=== PATIENT | female | born 1975 | race American Indian/Alaskan Native ===

== ENCOUNTER 2016-11-05 16:58 | Observation (INO) | payer MEDICAID, OTHER ==
[2016-11-05] MEDS ORDERED: Aspirin 325 mg EC Tablets PO STA (18:03)
--- NOTE | 2016-11-05 18:14 | ED PDOC ---
Arrival/HPI - General Historian: Patient - General Chief Complaint: Lower Extremity Problem/Injury Time Seen by Provider: 11/05/16 17:10 - History of Present Illness Narrative History of Present Illness (Text): 11/05/16 18:09 41 yo F with pmh of neuropathy to lower extremities and etoh abuse, presents complaining of pins and needle sensation as well as pain described as "electric shock" sensation to bilateral lower legs started below the knees down to both feet. Patient states that she has had similar symptoms prior, mostly to the feet. Patient states she used to be on gabapentin last year, however is currently on no medications to control her symptoms as she has not been able to see a pmd due to her insurance. Denies any fever, chills, trauma, injury, swelling, recent travel. Patient also reports 3-4 day h/o intermittent L sided chest pain described as pressure "someone is sitting on my chest," associated with dyspnea. 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 Otherwise: (-) radiation, (-) diaphoresis, (-) SOB, (+) pleuritic component, (- ) ripping or tearing quality, (-) positional component, (-) exertional component , (-) dizziness, (-) syncope, (-) nausea, (-) vomiting, (-) calf swelling, (-) neuro deficits. Of note, patient states that her last stress test was in [address] Nix and was normal. PMD none (Mingo BORJAS,Lianne Ramirez) Past Medical History - Provider Review Nursing Documentation Reviewed: Yes - Infectious Disease Hx of Infectious Diseases: None - Tetanus Immunization Tetanus Immunization: Unknown - Past Medical History Past Medical History: Non-Contributing - Cardiac Hx Cardiac Disorders: Yes Hx Hypertension: Yes - Pulmonary Hx Respiratory Disorders: No - Neurological Hx Neurological Disorder: No Other/Comment: Neuropathy in legs - HEENT Hx HEENT Disorder: No - Renal Hx Renal Disorder: No - Endocrine/Metabolic Hx Endocrine Disorders: Yes Hx Diabetes Mellitus Type 2: Yes - Hematological/Oncological Hx Blood Disorders: No - Integumentary Hx Dermatological Disorder: Yes Other/Comment: hidradenitis supprativum - Musculoskeletal/Rheumatological Hx Musculoskeletal Disorders: No Hx Falls: No - Gastrointestinal Hx Gastrointestinal Disorders: Yes Hx Gall Bladder Disease: Yes (cholecystectomy) Hx Gastritis: Yes Hx Gastroesophageal Reflux: Yes Hx Pancreatitis: Yes - Genitourinary/Gynecological Hx Genitourinary Disorders: No - Psychiatric Hx Psychophysiologic Disorder: Yes Hx Depression: Yes Hx Substance Use: No Other/Comment: alcohol abuse - Surgical History Hx Cholecystectomy: Yes Hx Gastric Bypass Surgery: Yes Other/Comment: left breast lumpectomy, abscess removal - Anesthesia Hx Anesthesia: Yes Hx Anesthesia Reactions: No Hx Malignant Hyperthermia: No - Suicidal Assessment Feels Threatened In Home Enviroment: No Family/Social History - Physician Review Nursing Documentation Reviewed: Yes Family/Social History: Other (neuropathy) Smoking Status: Never Smoked Hx Alcohol Use: Yes (quit 1 yr ago) Hx Substance Use: No Hx Substance Use Treatment: No Allergies/Home Meds Allergies/Adverse Reactions: Allergies alprazolam [From Xanax] Allergy (Verified 11/05/16 17:22) SWELLING ceftaroline fosamil acetate [From Teflaro] Allergy (Verified 11/05/16 17:22) SWELLING shellfish derived Allergy (Verified 11/05/16 17:22) ANAPHYLAXIS Home Medications: Home Meds Medication Instructions Recorded Confirmed No Known Home Med 11/05/16 11/05/16 Review of Systems - Review of Systems Constitutional: Normal. absent: Fatigue, Weight Change, Fevers Respiratory: Normal, Other (dyspnea). absent: SOB, Cough, Sputum Cardiovascular: Normal, Chest Pain. absent: Palpitations, Edema Musculoskeletal: Normal, Other. absent: Arthralgias, Back Pain, Neck Pain Skin: Normal. absent: Rash, Pruritis, Skin Lesions Neurological: Normal, Other (neuropathy to both legs). absent: Headache, Dizziness, Focal Weakness Physical Exam Finger Stick Blood Glucose: 159 - Physical Exam Narrative Physical Exam (Text): 11/05/16 18:15 GENERAL APPEARANCE: Patient is awake, alert, oriented x 3, in mild painful distress. SKIN: Warm, dry; (-) cyanosis. EYES: (-) conjunctival pallor. ENMT: Mucous membranes moist. NECK: (-) tenderness, (-) stiffness, (-) lymphadenopathy, (-) JVD. CHEST AND RESPIRATORY: (-) rash, (+) L upper chest wall tenderness. Lungs: (- ) rales, (-) rhonchi, (-) wheezes, (-) rub; breath sounds equal bilaterally. HEART AND CARDIOVASCULAR: (-) irregularity; (-) murmur, (-) gallop, (-) rub. ABDOMEN AND GI: Soft; (-) distention, (-) tenderness, (-) palpable pulsatile mass. EXTREMITIES: (-) deformity; (-) edema, (-) calf tenderness. (+) distal pulses. NEURO AND PSYCH: Mental status as above. Cranial nerves grossly intact; strength symmetric, sensation to b/l LE from the shins to the feet are decreased R>L. (Mingo BORJAS,Lianne Ramirez) Vital Signs Temp Pulse Resp BP Pulse Ox 11/05/16 18:58 98.5 F 110 H 18 106/73 99 11/05/16 17:15 98.5 F 120 H 18 106/73 98 Medical Decision Making - Lab Interpretations I have reviewed the lab results: Yes (trop (-), bnp (-), d-dimer (+)) ED Course and Treatment: 11/05/16 18:15 41 yo F with pmh of neuropathy to lower extremities, complaining of pins and needle sensation & pain bilateral lower legs from below the knees down to both feet. Patient also reports 3-4 day h/o intermittent L sided chest pain described as pressure "someone is sitting on my chest," associated with dyspnea. Previous medical records reviewed: 06/2011 - patient had a normal exercise stress, normal gated wall motions of L ventricle, LVEF 54%. 07/2011 - patient had a cardiac cath : L main nl, LAD no stenosis, RCA is nl, EF 60-70%, performed by Dr. Nix Plan: -- Labs - inlcuding trop / d-dimer -- IV -- Urinalysis -- EKG -- CXR -- ASA po / ultram po -- Reassess and disposition EKG : Sinus tach at 120 bpm, (-) acute ST changes, as read by CRISTIANA CXR: NAD, as read by CRISTIANA On reevaluation, the patient is sitting in bed comfortably, still in mild painful distress, she reports of continued pain to the b/l LE due to her neuropathy. Denies any CP, dyspnea or SOB at this time. Lab results show trop is negative, bnp is normal, elevated d-dimer. CTA chest to r/o PE ordered. Patient notified plan for CTA chest, which she agrees to. Patient remains tachycardic. CTA chest shows no PE. Patient notified of CTA results. Based on history, exam and diagnostic results plan will be for inpatient tele observation for chest pain r/o ACS. Patient notified of plan for inpatient tele observation, which she agrees to. Patient reports improvement of her b/l leg pain. Patient has no additional complaints at this time. Case d/w medical review coordinator Dr. Pedro and with Dr. Bhatti. Dr. Bhatti agree with plan for inpatient tele obs under the hospitalist. Admission orders placed. (Mingo BORJAS,Lianne Ramirez) - Lab Interpretations Lab Results: 11/05/16 18:40 11/05/16 18:40 Lab Results 11/05/16 18:40: Sodium 134, Potassium 4.0, Chloride 95 L, Carbon Dioxide 27, Anion Gap 16, BUN 13, Creatinine 0.7, Est GFR ( Amer) > 60, Est GFR (Non- Af Amer) > 60, Random Glucose 183 H, Calcium 9.0, Total Bilirubin 0.8, AST 166 H , ALT 45, Alkaline Phosphatase 122, Lactate Dehydrogenase 532, Total Creatine Kinase 84, Troponin I < 0.01, NT-Pro-B Natriuret Pep 31.9, Total Protein 9.3 H, Albumin 4.0, Globulin 5.3, Albumin/Globulin Ratio 0.8 L 11/05/16 18:40: WBC 11.8 H D, RBC 3.64, Hgb 11.8 L, Hct 35.7 L, MCV 98.1, MCH 32.4, MCHC 33.1, RDW 19.5 H, Plt Count 109 L, Gran % 83.5 H, Lymph % (Auto) 11.9 L, [place] % (Auto) 3.5, Eos % (Auto) 1.0 L, Baso % (Auto) 0.1, Gran # 9.86 H , Lymph # 1.4, [place] # 0.4, Eos # 0.1, Baso # 0.01 11/05/16 18:40: PT 10.9, INR 1.01, APTT 28.6, D-Dimer, Quantitative 0.65 H 11/05/16 18:00: Urine Color Light brown, Urine Appearance Sl cloudy, Urine pH 5.5, Ur Specific [place] 1.025, Urine Protein 30 H, Urine Glucose (UA) Negative , Urine Ketones 15 H, Urine Blood Large H, Urine Nitrate Negative, Urine Bilirubin Small H, Urine Urobilinogen 1.0 H, Ur Leukocyte Esterase Small H, Urine RBC 25 - 30, Urine WBC 5 - 10, Ur Epithelial Cells Many, Amorphous Sediment Small, Urine Bacteria Many, Urine Other Uyeast 11/05/16 17:31: POC Glucose (mg/dL) 159 H - RAD Interpretation Narrative RAD Interpretations (Text): 11/05/16 22:59 CTA chest : FINDINGS: No pulmonary emboli in the main pulmonary arteries. No emboli identified distally however patient motion results in heterogeneity of several of the very distal lower lobe branches limiting evaluation. No aortic dissection or aneurysm. No pleural or pericardial effussions. No pulmonary consolidation. Cholecystectomy clips are present. IMPRESSION: No acute findings. Dictated and Authenticated by: Yulissa Kwan MD 11/05/2016 10:48 PM Eastern Time ([place] & [place]) (Mingo BORJAS,Lianne Ramirez) Radiology Orders: 11/05/16 18:05 CHEST PORTABLE [RAD] Stat 11/05/16 20:11 ANGIO CHEST PE PROTOCOL [CT] Stat - Medication Orders Current Medication Orders: Aspirin (Ecotrin) 81 mg PO STAT STA Stop: 11/06/16 00:13 Atorvastatin Calcium (Lipitor) 80 mg PO DIN JAGRUTI Sodium Chloride (Sodium Chloride 0.9%) 1,000 mls @ 100 mls/hr IV .Q10H JAGRUTI Insulin Human Lispro (Humalog Low) 0 units SC ACHS JAGRUTI PRN Reason: Protocol Morphine Sulfate (Morphine) 2 mg IVP Q4H PRN PRN Reason: Pain, moderate (4-7) Discontinued Medications Aspirin (Ecotrin) 325 mg PO STAT STA Stop: 11/05/16 18:04 Last Admin: 11/05/16 18:35 Dose: 325 mg Iohexol (Omnipaque 350 150 Ml) Confirm Administered Dose 150 ml .ROUTE .STK-MED ONE Stop: 11/05/16 21:31 Morphine Sulfate (Morphine) 4 mg IVP STAT STA Stop: 11/05/16 20:36 Last Admin: 11/05/16 20:48 Dose: 4 mg Ondansetron HCl (Zofran Inj) 4 mg IVP STAT STA Stop: 11/05/16 20:36 Last Admin: 11/05/16 20:49 Dose: 4 mg Tramadol HCl (Ultram) 50 mg PO STAT STA Stop: 11/05/16 18:07 Last Admin: 11/05/16 18:35 Dose: 50 mg - PA / 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 Disposition/Present on Arrival - Present on Arrival Any Indicators Present on Arrival: No History of DVT/PE: No History of Uncontrolled Diabetes: No Urinary Catheter: No History of Decub. Ulcer: No History Surgical Site Infection Following: None - Disposition Have Diagnosis and Disposition been Completed?: Yes Disposition Time: 10:00 Patient Plan: Observation (tele) - Disposition Diagnosis: Neuropathy, Chest pain Disposition: HOSPITALIZED Condition: STABLE
[2016-11-05 18:38] LABS: PH,URINE 5.5 (4.7-8.0); URINE BILIRUBIN SMALL (NEGATIVE); URINE BLOOD LARGE (NEGATIVE); URINE GLUCOSE (UA) NEGATIVE (NEGATIVE); URINE KETONE 15 mg/dL (NEGATIVE); URINE LEUKOCYTE ESTERASE SMALL Leu/uL (NEGATIVE); URINE PROTEIN 30 mg/dL (<30 mg/dL)
[2016-11-05 18:40] LABS: URINE APPEARANCE SL CLOUDY (CLEAR); URINE COLOR LIGHT BROWN (YELLOW)
[2016-11-05 18:47] LABS: URINE AMORPHOUS SEDIMENT SMALL; URINE BACTERIA MANY (NEG); URINE EPITHELIAL CELLS MANY /hpf (0-5); URINE RBC 25 - 30 /hpf (0-2)
[2016-11-05 18:59] VITALS: O2SAT 99
[2016-11-05 19:16] LABS: ALB/GLOB RATIO 0.8 (1.1-1.8); ALKALINE PHOSPHATASE 122 U/L (38-126); ALT/SGPT 45 U/L (7-56); AST/SGOT 166 U/L (14-36); BILIRUBIN,TOTAL 0.8 mg/dL (0.2-1.3); BLOOD UREA NITROGEN 13 mg/dL (7-21); CARBON DIOXIDE 27 mmol/L (21-33); CHLORIDE 95 mmol/L (98-107); GFR AFRICAN-AMERICAN > 60; GLUCOSE,RANDOM 183 mg/dL (70-110); SODIUM 134 mmol/L (132-148); TOTAL PROTEIN 9.3 g/dL (5.8-8.3)
[2016-11-05 19:19] LABS: BASO # 0.01 K/mm3 (0.0-2.0); BASO % 0.1 % (0.0-3.0); EOS # 0.1 (0.0-0.7); GRAN # 9.86 (1.4-6.5); GRAN % 83.5 % (50.0-68.0); HEMATOCRIT 35.7 % (36.0-48.0); LYMPH # 1.4 (1.2-3.4); LYMPH % 11.9 % (22.0-35.0); MEAN CELL VOLUME 98.1 fl (80.0-105.0); MEAN CORPUSCULAR HEMOGLOBIN 32.4 pg (25.0-35.0); MEAN CORPUSCULAR HGB CONC 33.1 g/dl (31.0-37.0); MONO # 0.4 (0.1-0.6); MONO % 3.5 % (1.0-6.0); PLATELET COUNT 109 10^3/uL (120.0-450.0); RED CELL DISTRIBUTION WIDTH 19.5 % (11.5-14.5); WHITE BLOOD COUNT 11.8 10^3/ul (4.5-11.0)
[2016-11-05 19:28] LABS: INR 1.01 (0.93-1.08); PARTIAL THROMBOPLASTIN TIME 28.6 Seconds (23.7-30.8)
[2016-11-05 19:35] LABS: D DIMER 0.65 mg/L FEU (0-0.50)
[2016-11-05 19:40] LABS: TROPONIN I < 0.01 ng/mL
[2016-11-05] MEDS ORDERED: Morphine 4 mg/ml ISec IVP STA (20:35)
--- NOTE | 2016-11-05 22:48 | CT ---
EXAM: CT Angiography Chest With Intravenous Contrast EXAM DATE/TIME: 11/05/2016 8:11 PM CLINICAL HISTORY: 41 years old, female; Pain; Chest pain and other: Chest pain, R/O pe TECHNIQUE: Axial computed tomographic angiography images of the chest with intravenous contrast using pulmonary embolism protocol. All CT scans at this facility use one or more dose reduction techniques, viz.: automated exposure control; ma/kV adjustment per patient size (including targeted exams where dose is matched to indication; i.e. head); or iterative reconstruction technique. MIP reconstructed images were created and reviewed. Coronal and sagittal reformatted images were created and reviewed. CONTRAST: 150 mL of [id number] administered intravenously. COMPARISON: CT - ANGIO CHEST PE PROTOCOL 03/20/2015 2:41:32 AM FINDINGS: No pulmonary emboli in the main pulmonary arteries. No emboli identified distally however patient motion results in heterogeneity of several of the very distal lower lobe branches limiting evaluation. No aortic dissection or aneurysm. No pleural or pericardial effussions. No pulmonary consolidation. Cholecystectomy clips are present. The liver and spleen are prominent similar to prior. IMPRESSION: No acute findings.
--- NOTE | 2016-11-06 00:22 | CP.PCM.HP ---
<Deon Pedro - Last Filed: 11/06/16 01:02> History of Present Illness - History of Present Illness History of Present Illness: 41 yo female with PMH of DM, peripheral neuropathy presents to the ED because she states she feels needles in both of her legs starting from her foot and going up to her knees. She states that she has had that feeling for a while but today it was the worse it has been so she came in. She also states that along with the leg pain she has discomfort in her chest which she describes as a pressure like something is sitting on her chest. She says it is non radiating and that the chest discomfort started yesterday. Along with the chest discomfort she states it was difficult for her to catch her breath. She complains of a headache, light headedness, shortness of breath, and numbness and tingling in her legs. She denies any fever chills, N/V, diaphoresis PMH: Peripheral Neuropathy, DM, PSH: gastric bypass, cholecysectomy, left brest lumpectomy, removal of rectal cysts Family Hx: mother- neuropathy and HTN, father- DM, Kidney disease Social: denies alcohol, tobacco or drug use Medications: does not take any medications, used to take metformin Allergies: shellfish, xanax (gets a rash) FDLMP: October 20 Present on Admission - Present on Admission Any Indicators Present on Admission: No Review of Systems - Constitutional Constitutional: absent: Chills, Excessive Sweating, Night Sweats, Weakness - EENT Eyes: absent: Change in Vision Ears: absent: Decreased Hearing - Cardiovascular Cardiovascular: Chest Pain, Dyspnea, Dyspnea on Exertion, Rapid Heart Rate. absent: Diaphoresis, Pain Radiating to Arm/Neck/Jaw - Respiratory Respiratory: absent: Dyspnea - Gastrointestinal Gastrointestinal: absent: Hematemesis, Nausea, Vomiting - Reproductive: Female Reproductive:Female: As Per HPI - Menstruation Menstruation: As Per HPI - Musculoskeletal Musculoskeletal: Tingling - Neurological Neurological: Headaches. absent: Abnormal Hearing, Loss of Vision Past Patient History - Infectious Disease Hx of Infectious Diseases: None - Tetanus Immunizations Tetanus Immunization: Unknown - Past Medical History & Family History Past Medical History?: Yes - Past Social History Smoking Status: Never Smoked - CARDIAC Hx Cardiac Disorders: Yes Hx Hypertension: Yes - PULMONARY Hx Respiratory Disorders: No - NEUROLOGICAL Hx Neurological Disorder: No Other/Comment: Neuropathy in legs - HEENT Hx HEENT Problems: No - RENAL Hx Chronic Kidney Disease: No - ENDOCRINE/METABOLIC Hx Endocrine Disorders: Yes Hx Diabetes Mellitus Type 2: Yes - HEMATOLOGICAL/ONCOLOGICAL Hx Blood Disorders: No - INTEGUMENTARY Hx Dermatological Problems: Yes Other/Comment: hidradenitis supprativum - MUSCULOSKELETAL/RHEUMATOLOGICAL Hx Musculoskeletal Disorders: No Hx Falls: No - GASTROINTESTINAL Hx Gastrointestinal Disorders: Yes Hx Gall Bladder Disease: Yes (cholecystectomy) Hx Gastritis: Yes Hx Gastroesophageal Reflux: Yes Hx Pancreatitis: Yes - GENITOURINARY/GYNECOLOGICAL Hx Genitourinary Disorders: No - PSYCHIATRIC Hx Psychophysiologic Disorder: Yes Hx Depression: Yes Hx Substance Use: No Other/Comment: alcohol abuse - SURGICAL HISTORY Hx Cholecystectomy: Yes Hx Gastric Bypass Surgery: Yes Other/Comment: left breast lumpectomy, abscess removal - ANESTHESIA Hx Anesthesia: Yes Hx Anesthesia Reactions: No Hx Malignant Hyperthermia: No Meds Allergies/Adverse Reactions: Allergies Allergy/AdvReac Type Severity Reaction Status Date / Time alprazolam [From Xanax] Allergy SWELLING Verified 11/05/16 17:22 ceftaroline fosamil acetate Allergy SWELLING Verified 11/05/16 17:22 [From Teflaro] shellfish derived Allergy ANAPHYLAXIS Verified 11/05/16 17:22 Physical Exam - Constitutional Appears: No Acute Distress - Head Exam Head Exam: ATRAUMATIC, NORMAL INSPECTION, NORMOCEPHALIC - Eye Exam Eye Exam: EOMI, Normal appearance, PERRL - Neck Exam Neck exam: Positive for: Normal Inspection - Respiratory Exam Respiratory Exam: Clear to Auscultation Bilateral, NORMAL BREATHING PATTERN - Cardiovascular Exam Cardiovascular Exam: REGULAR RHYTHM, +S1, +S2 - GI/Abdominal Exam GI & Abdominal Exam: Normal Bowel Sounds - Extremities Exam Extremities exam: Positive for: pedal pulses present Additional comments: healed ulcers/wounds on hall feet on the plantar surfaces - Neurological Exam Neurological exam: Alert, CN II-XII Intact, Oriented x3 Results - Vital Signs Recent Vital Signs: Last Vital Signs Temp 98.5 F 11/05/16 18:58 Pulse 110 H 11/05/16 18:58 Resp 18 11/05/16 18:58 BP 106/73 11/05/16 18:58 Pulse Ox 99 11/05/16 18:58 - Labs Result Diagrams: 11/05/16 18:40 11/05/16 18:40 Assessment & Plan - Assessment and Plan (Free Text) Assessment: 41 year old female with PMH of neuropathy and DM complaining of tingling in her legs and chest discomfort. She is being treated to rule out ACS. Plan: 1. Chest Discomfort Rule out ACS -EKG was performed, normal sinus but tachycardia, will get serial EKG -patient on oxygen via nasala canula -Initial troponins negative, will get serial troponins -Cardiology consulted Dr. Cheung -started on 81mg Aspirin -Morphine 2mg IV Q4H PRN started -Lipid panel ordered -Started on Heart Healthy Diet -NS @100 started -Atorvastatin 80mg started -patient admitted to telemetry -D-dimer came back elevated 0.65 -CT Angio was performed and obtained 2. Peripheral Neuropathy - likely secondary to uncontrolled DM -Hemoglobin A1C ordered <Danish Bhatti MD - Last Filed: 11/06/16 08:45> Results - Vital Signs Recent Vital Signs: Last Vital Signs Temp 98.5 F 11/06/16 05:35 Pulse 106 H 11/06/16 05:35 Resp 22 11/06/16 05:35 BP 123/69 11/06/16 05:35 Pulse Ox 99 11/06/16 05:35 - Labs Result Diagrams: 11/05/16 18:40 11/05/16 18:40 Labs: Laboratory Results - last 24 hr 11/06/16 11/06/16 11/06/16 01:50 01:50 07:33 POC Glucose (mg/dL) 184 H Troponin I < 0.01 Triglycerides 144 Cholesterol 178 LDL Cholesterol Direct 115 HDL Cholesterol 46 TSH 3rd Generation 4.79 H Attending/Attestation - Attestation I have personally seen and examined this patient.: Yes I have fully participated in the care of the patient.: Yes I have reviewed all pertinent clinical information: Yes Notes (Text): -I agree with the above H&P completed by the resident physician, with the following additions and/or changes: The patient is a 41 year old, obese woman with a history of NIDDM (diet controlled), HTN (diet controlled) and peripheral neuropathy, who presents with acute onset of substernal chest pain. The pain is unaffected by exertion or oral intake and is non-radiating. The pain is NOT associated with SOB or diaphoresis. Because she was tachycardic in the ED (100-115), a CT-PA was done and ruled out acute PE. Serial trop's and EKG's will be checked. Also, a lipid panel, HgA1c, drug screen and TSH will be checked. Cardiology has been consulted. The patient will be placed on a standing dose of baby ASA and Lipitor in the mean time, while being ruled out for ACS.
[2016-11-06] MEDS: Morphine 2 mg/ml ISec IVP PRN ×5 (00:43→20:53)
[2016-11-06] MEDS: Sodium Chloride 0.9% 1,000 ML IV SCH (00:43)
[2016-11-06 02:11] VITALS: BMI 43.9
[2016-11-06 02:13] LABS: CHOLESTEROL 178 mg/dL (130-200)
[2016-11-06 02:53] LABS: TROPONIN I < 0.01 ng/mL
--- NOTE | 2016-11-06 07:29 | RAD ---
HISTORY: CP COMPARISON: 03/13/2016 FINDINGS: LUNGS: No active pulmonary disease. PLEURA: No significant pleural effusion identified, no pneumothorax apparent. CARDIOVASCULAR: Normal. OSSEOUS STRUCTURES: No significant abnormalities. VISUALIZED UPPER ABDOMEN: Normal. OTHER FINDINGS: None. IMPRESSION: No active disease.
[2016-11-06] MEDS: Insulin Lispro (humaLOG) LOW Coverage SC SCH ×4 (08:00→22:38)
[2016-11-06 08:55] LABS: BASO # 0.01 K/mm3 (0.0-2.0); BASO % 0.1 % (0.0-3.0); EOS # 0.2 (0.0-0.7); EOS % 1.7 % (1.5-5.0); GRAN # 8.19 (1.4-6.5); GRAN % 80.9 % (50.0-68.0); LYMPH # 1.3 (1.2-3.4); LYMPH % 12.5 % (22.0-35.0); MEAN CORPUSCULAR HEMOGLOBIN 31.3 pg (25.0-35.0); MEAN CORPUSCULAR HGB CONC 31.3 g/dl (31.0-37.0); MEAN PLATELET VOLUME 11.8 fl (7.0-11.0); MONO # 0.5 (0.1-0.6); MONO % 4.8 % (1.0-6.0); RED CELL DISTRIBUTION WIDTH 19.9 % (11.5-14.5); WHITE BLOOD COUNT 10.1 10^3/ul (4.5-11.0)
[2016-11-06 09:11] LABS: ALB/GLOB RATIO 0.8 (1.1-1.8); ALKALINE PHOSPHATASE 98 U/L (38-126); ALT/SGPT 45 U/L (7-56); AST/SGOT 128 U/L (14-36); BILIRUBIN,TOTAL 0.9 mg/dL (0.2-1.3); BLOOD UREA NITROGEN 17 mg/dL (7-21); CALCIUM 8.7 mg/dL (8.4-10.5); CARBON DIOXIDE 29 mmol/L (21-33); CHLORIDE 95 mmol/L (98-107); GFR AFRICAN-AMERICAN > 60; GLUCOSE,RANDOM 192 mg/dL (70-110); POTASSIUM 3.7 mmol/L (3.6-5.0); SODIUM 133 mmol/L (132-148); TOTAL PROTEIN 8.2 g/dL (5.8-8.3)
[2016-11-06 09:23] LABS: TROPONIN I < 0.01 ng/mL
[2016-11-06] MEDS: Enoxaparin 40 mg Syringe SC SCH (09:46)
--- NOTE | 2016-11-06 11:20 | CARD ---
APPROVED REPORT EKG Measurement Heart [id number] DC [id number] <Conclusion> Normal sinus rhythm Prolonged QT Abnormal ECG
--- NOTE | 2016-11-06 11:23 | CARD ---
APPROVED REPORT EKG Measurement Heart [id number] [place] 152P21 [id number] <Conclusion> Sinus tachycardia Moderate voltage criteria for LVH, may be normal variant Borderline ECG
--- NOTE | 2016-11-06 17:19 | CARD ---
APPROVED REPORT EKG Measurement Heart [id number] PA 156P35 [id number] <Conclusion> Sinus tachycardia Moderate voltage criteria for LVH, may be normal variant Borderline ECG
--- NOTE | 2016-11-06 20:28 | US ---
HISTORY: Leg pain and swelling. Evaluate for DVT PHYSICIAN(S): Sven Owusu MD. TECHNIQUE: Duplex sonography and color-flow Doppler with graded compression were used to evaluate the deep venous systems of both lower extremities. FINDINGS: The visualized deep venous systems of both lower extremities are sonographically normal and compressible. Normal wave forms and augmentation are seen. There is no sonographic evidence for deep venous thrombosis in the visualized segments of both lower extremities. IMPRESSION: No sonographic evidence for deep venous thrombosis in the visualized segments of both lower extremities.
--- NOTE | 2016-11-06 20:43 | CON ---
REASON FOR CONSULTATION: Chest discomfort. HISTORY OF PRESENT ILLNESS: The patient is a 41-year-old morbidly obese -I[place] female who was diagnosed with diabetes mellitus 2 years ago; however, she stopped taking her metformin 6 months ago because of not seeing her primary physician as her insurance did not pay for a primary physician at [facility] and she could not see him, and she is not able to go to the clinic. The patient presents because of bilateral leg pain and having difficulty feeling her both lower extremities as well as chest discomfort. The patient is unaware of any prior cardiac history. The patient does have a borderline high blood pressure according to her. She is healthy and nonsmoker. She lives with her mother. Has no children. MEDICATIONS: Aspirin 81 mg once daily, Lipitor 80 mg once a day, Lovenox 40 mg subcutaneous once a day, Neurontin 300 mg t.i.d., normal saline at 10 mL an hour. REVIEW OF SYSTEMS: No nausea or vomiting. No fever or chills. No dizziness or syncope. PHYSICAL EXAMINATION GENERAL: The patient is young middle-aged female who does not appear to be in any distress. VITAL SIGNS: Blood pressure 123/69, heart rate 104, temperature 98.5, respirations 22. HEENT: Normocephalic. Pale conjunctivae. CHEST: Clear. HEART: S1 and S2 regular. ABDOMEN: Soft. EXTREMITIES: No edema or calf tenderness. DIAGNOSTIC DATA: Hemoglobin and hematocrit 9.7 and 31, white count 10.1, platelet count 86,000. SMA-7 is within normal limits except for glucose of 192, chloride of 95, hemoglobin A1c 7.4. TSH is elevated at 4.79. D-dimer is elevated at 0.65. EKG revealed sinus tachycardia at the rate of 107. Two sets of troponin are negative. Chest CT scan with IV contrast, no pulmonary emboli. Final impression, no acute findings. Venous Doppler of lower extremity is performed but the report is still pending. ASSESSMENT: 1. Atypical chest pain. Myocardial infraction is ruled out. 2. Uncontrolled diabetes mellitus. 3. Morbid obesity. 4. Consider hypothyroidism. RECOMMENDATIONS: Continue current aspirin, Lipitor, subcutaneous Lovenox. I will redo her echocardiography study once this is performed and follow up the official report of venous Doppler of the lower extremities. If all negative, the patient can undergo an outpatient stress test. Ottoniel Cheung MD [facility] # [id number]
[2016-11-07] MEDS: Morphine 2 mg/ml ISec IVP PRN ×4 (02:01→11:59)
[2016-11-07] MEDS: Sodium Chloride 0.9% 1,000 ML IV SCH (02:25)
[2016-11-07] MEDS: Insulin Lispro (humaLOG) LOW Coverage SC SCH ×2 (08:25→11:59)
[2016-11-07 08:39] LABS: BASO # 0.01 K/mm3 (0.0-2.0); BASO % 0.1 % (0.0-3.0); EOS # 0.2 (0.0-0.7); GRAN # 6.95 (1.4-6.5); GRAN % 79.9 % (50.0-68.0); HEMATOCRIT 30.5 % (36.0-48.0); LYMPH % 11.9 % (22.0-35.0); MEAN CELL VOLUME 100.3 fl (80.0-105.0); MEAN CORPUSCULAR HEMOGLOBIN 31.6 pg (25.0-35.0); MEAN CORPUSCULAR HGB CONC 31.5 g/dl (31.0-37.0); MEAN PLATELET VOLUME 12.8 fl (7.0-11.0); MONO # 0.5 (0.1-0.6); MONO % 6.1 % (1.0-6.0); RED CELL DISTRIBUTION WIDTH 19.9 % (11.5-14.5); WHITE BLOOD COUNT 8.7 10^3/ul (4.5-11.0)
[2016-11-07 08:55] LABS: BLOOD UREA NITROGEN 14 mg/dL (7-21); CALCIUM 8.8 mg/dL (8.4-10.5); CARBON DIOXIDE 30 mmol/L (21-33); CHLORIDE 97 mmol/L (98-107); GFR AFRICAN-AMERICAN > 60; GLUCOSE,RANDOM 173 mg/dL (70-110); SODIUM 135 mmol/L (132-148)
--- NOTE | 2016-11-07 10:12 | CP.PCM.DIS ---
Provider - Provider Date of Admission: 11/05/16 23:04 Attending physician: Lianna Buchanan MD Diagnosis - Discharge Diagnosis (1) Diabetes Status: Chronic (2) Noncompliance with medication regimen Status: Chronic (3) Atypical chest pain Status: Resolved (4) Hypertension Status: Chronic (5) Neuropathy Status: Chronic Hospital Course - Lab Results Lab Results: Most Recent Lab Values WBC 8.7 10^3/ul (4.5-11.0) 11/07/16 08:00 RBC 3.04 10^6/uL (3.5-6.1) L 11/07/16 08:00 Hgb 9.6 g/dL (12.0-16.0) L 11/07/16 08:00 Hct 30.5 % (36.0-48.0) L 11/07/16 08:00 MCV 100.3 fl (80.0-105.0) 11/07/16 08:00 MCH 31.6 pg (25.0-35.0) 11/07/16 08:00 MCHC 31.5 g/dl (31.0-37.0) 11/07/16 08:00 RDW 19.9 % (11.5-14.5) H 11/07/16 08:00 Plt Count 94 10^3/uL (120.0-450.0) L 11/07/16 08:00 MPV 12.8 fl (7.0-11.0) H 11/07/16 08:00 Gran % 79.9 % (50.0-68.0) H 11/07/16 08:00 Lymph % (Auto) 11.9 % (22.0-35.0) L 11/07/16 08:00 [place] % (Auto) 6.1 % (1.0-6.0) H 11/07/16 08:00 Eos % (Auto) 2.0 % (1.5-5.0) 11/07/16 08:00 Baso % (Auto) 0.1 % (0.0-3.0) 11/07/16 08:00 Gran # 6.95 (1.4-6.5) H 11/07/16 08:00 Lymph # 1.0 (1.2-3.4) L 11/07/16 08:00 [place] # 0.5 (0.1-0.6) 11/07/16 08:00 Eos # 0.2 (0.0-0.7) 11/07/16 08:00 Baso # 0.01 K/mm3 (0.0-2.0) 11/07/16 08:00 PT 10.9 Seconds (9.9-11.8) 11/05/16 18:40 INR 1.01 (0.93-1.08) 11/05/16 18:40 APTT 28.6 Seconds (23.7-30.8) 11/05/16 18:40 D-Dimer, Quantitative 0.65 mg/L FEU (0-0.50) H 11/05/16 18:40 Sodium 135 mmol/L (132-148) 11/07/16 08:00 Potassium 4.0 mmol/L (3.6-5.0) 11/07/16 08:00 Chloride 97 mmol/L (98-107) L 11/07/16 08:00 Carbon Dioxide 30 mmol/L (21-33) 11/07/16 08:00 Anion Gap 12 (10-20) 11/07/16 08:00 BUN 14 mg/dL (7-21) 11/07/16 08:00 Creatinine 0.6 mg/dL (0.5-1.4) 11/07/16 08:00 Est GFR ( Amer) > 60 11/07/16 08:00 Est GFR (Non-Af Amer) > 60 11/07/16 08:00 POC Glucose (mg/dL) 174 mg/dL (65-110) H 11/06/16 16:06 Random Glucose 173 mg/dL (70-110) H 11/07/16 08:00 Hemoglobin A1c 7.5 % (4.2-6.5) H 11/06/16 01:50 Calcium 8.8 mg/dL (8.4-10.5) 11/07/16 08:00 Total Bilirubin 0.9 mg/dL (0.2-1.3) 11/06/16 08:52 AST 128 U/L (14-36) H D 11/06/16 08:52 ALT 45 U/L (7-56) 11/06/16 08:52 Alkaline Phosphatase 98 U/L (38-126) 11/06/16 08:52 Lactate Dehydrogenase 532 U/L (333-699) 11/05/16 18:40 Total Creatine Kinase 84 U/L (35-230) 11/05/16 18:40 Troponin I < 0.01 ng/mL 11/06/16 08:52 NT-Pro-B Natriuret Pep 31.9 pg/mL (0-450) 11/05/16 18:40 Total Protein 8.2 g/dL (5.8-8.3) 11/06/16 08:52 Albumin 3.6 g/dL (3.0-4.8) 11/06/16 08:52 Globulin 4.7 gm/dL 11/06/16 08:52 Albumin/Globulin Ratio 0.8 (1.1-1.8) L 11/06/16 08:52 Triglycerides 144 mg/dL (35-160) 11/06/16 01:50 Cholesterol 178 mg/dL (130-200) 11/06/16 01:50 LDL Cholesterol Direct 115 mg/dL (0-129) 11/06/16 01:50 HDL Cholesterol 46 mg/dL (29-60) 11/06/16 01:50 Free T4 1.08 ng/dL (0.78-2.19) 11/06/16 08:52 TSH 3rd Generation 4.79 mIU/mL (0.46-4.68) H 11/06/16 01:50 Urine Color Light brown (YELLOW) 11/05/16 18:00 Urine Appearance Sl cloudy (CLEAR) 11/05/16 18:00 Urine pH 5.5 (4.7-8.0) 11/05/16 18:00 Ur Specific [place] 1.025 (1.005-1.035) 11/05/16 18:00 Urine Protein 30 mg/dL (<30 mg/dL) H 11/05/16 18:00 Urine Glucose (UA) Negative mg/dL (NEGATIVE) 11/05/16 18:00 Urine Ketones 15 mg/dL (NEGATIVE) H 11/05/16 18:00 Urine Blood Large (NEGATIVE) H 11/05/16 18:00 Urine Nitrate Negative (NEGATIVE) 11/05/16 18:00 Urine Bilirubin Small (NEGATIVE) H 11/05/16 18:00 Urine Urobilinogen 1.0 E.U./dL (<1 E.U./dL) H 11/05/16 18:00 Ur Leukocyte Esterase Small [place]/uL (NEGATIVE) H 11/05/16 18:00 Urine RBC 25 - 30 /hpf (0-2) 11/05/16 18:00 Urine WBC 5 - 10 /hpf (0-6) 11/05/16 18:00 Ur Epithelial Cells Many /hpf (0-5) 11/05/16 18:00 Amorphous Sediment Small 11/05/16 18:00 Urine Bacteria Many (NEG) 11/05/16 18:00 Urine Other Uyeast 11/05/16 18:00 Urine Opiates Screen Positive (NEGATIVE) H 11/07/16 01:41 Urine Methadone Screen Negative (NEGATIVE) 11/07/16 01:41 Ur Barbiturates Screen Negative (NEGATIVE) 11/07/16 01:41 Ur Phencyclidine Scrn Negative (NEGATIVE) 11/07/16 01:41 Ur Amphetamines Screen Negative (NEGATIVE) 11/07/16 01:41 U Benzodiazepines Scrn Negative (NEGATIVE) 11/07/16 01:41 U Oth Cocaine Metabols Negative (NEGATIVE) 11/07/16 01:41 U Cannabinoids Screen Negative (NEGATIVE) 11/07/16 01:41 Discharge Exam - Head Exam Head Exam: ATRAUMATIC, NORMAL INSPECTION, NORMOCEPHALIC Discharge Plan - Discharge Medications Prescriptions: Aspirin [Aspirin Chewable] 81 mg PO DAILY #30 Gabapentin [Neurontin] 300 mg PO HS #30 cap MetFORMIN [glucoPHAGE] 500 mg PO BID #60 tab - Follow Up Plan Condition: STABLE Disposition: HOME/ ROUTINE Patient education suggested?: Yes Instructions: Chest Pain (ED) Additional Instructions: - Please follow up with Dr Flood ( research contracts supervisor, phone and address below) for outpatient stress test. - Take metformin 500 mg twice a day for your diabetes - Take gabapentin 300 mg at bed time for neuropathy. 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 - You will also need a foot care and eye care as a diabetic, can see the orthopedic recommended below, or find someone on your own. - It's extremely important that you loose weight. - Please come back if you experience chest pain , shortness of breath, fever or chills. Referrals: Devin Matute MD [Staff Provider] - Nicolette Sutton DPM [Staff Provider] - Ottoniel Cheung MD [Staff Provider] -
[2016-11-07] MEDS: Enoxaparin 40 mg Syringe SC SCH (10:52)
[2016-11-07 12:23] VITALS: BP 129/82; RESP 21; TEMP 98.2
--- NOTE | 2016-11-07 15:19 | CARD ---
APPROVED REPORT EXAM: Two-dimensional and M-mode echocardiogram with Doppler and color Doppler. INDICATION Chest Pain 2D DIMENSIONS Left Atrium (2D)4.6 (1.6-4.0cm)IVSd0.9 (0.7-1.1cm) LVDd5.1 (3.9-5.9cm)PWd1.2 (0.7-1.1cm) LVDs3.2 (2.5-4.0cm)FS (%) 36.1 % LVEF (%)65.4 (>50%) M-Mode DIMENSIONS Aortic Root3.20 (2.2-3.7cm)Aortic Cusp Exc.1.90 (1.5-2.0cm) Aortic Valve AoV Peak Xxyhdbir437.0cm/sAoV VTI34.6cmAO Peak GR.14mmHg AO Mean GR.8mmHg Mitral Valve MV E Mjycuohv734.0cm/sMV A Fowmzfas845.0cm/sE/A ratio1.1 TDI Lateral E' Peak V14.30cm/sMedial E' Peak V10.70cm/sE/Lateral E'8.1 E/Medial E'10.8 Pulmonary Valve PV Peak Eprhqbpx42.9cm/sPV Peak Grad.3mmHg Tricuspid Valve TR Peak Mfaipcau650vp/sRAP CFUVMLIG31lwCjGH Peak Gr.25mmHg [id number] LEFT VENTRICLE The left ventricle is normal size. There is normal left ventricular wall thickness. The left ventricular function is normal. The left ventricular ejection fraction is within the normal range. There is normal LV segmental wall motion. Transmitral Doppler flow pattern is Grade I-abnormal relaxation pattern. RIGHT VENTRICLE The right ventricle is normal size. There is normal right ventricular wall thickness. The right ventricular systolic function is normal. ATRIA The left atrium is mildly dilated. The right atrium size is normal. AORTIC VALVE The aortic valve is not well visualized. No aortic regurgitation is present. There is no aortic valvular stenosis. MITRAL VALVE The mitral valve is normal in structure. Mitral regurgitation is trace. TRICUSPID VALVE The tricuspid valve is normal in structure. There is trace tricuspid regurgitation. There is mild pulmonary hypertension. GREAT VESSELS The aortic root is normal in size. The IVC is normal in size and collapses >50% with inspiration. <Conclusion> The left ventricle is normal size. There is normal left ventricular wall thickness. The left ventricular function is normal. The left ventricular ejection fraction is within the normal range. Transmitral Doppler flow pattern is Grade I-abnormal relaxation pattern.
[2016-11-07 15:36] VITALS: PULSE 92
== END 2016-11-07 17:45 | disposition home or self-care (01) ==
LOC: ED 16:58 → ERH 23:04 → 2RSO 11-06 01:24
PROVIDERS: ADMIT Internal Medicine; ATTEND Internal Medicine
DX: R07.89 Other chest pain (principal); E11.42 Type 2 diabetes mellitus with diabetic polyneuropathy; E11.65 Type 2 diabetes mellitus with hyperglycemia; E66.01 Morbid (severe) obesity due to excess calories; F10.10 Alcohol abuse, uncomplicated; I10 Essential (primary) hypertension; K21.9 Gastro-esophageal reflux disease without esophagitis; L73.2 Hidradenitis suppurativa; Z82.49 Family history of ischemic heart disease and other diseases of the circulatory system; Z90.49 Acquired absence of other specified parts of digestive tract; Z91.14 Patient's other noncompliance with medication regimen; Z98.84 Bariatric surgery status; E03.9 Hypothyroidism, unspecified
CPT/HCPCS: 36415; 71010; 71275; 80048; 80053; 80061; 80324; 80345; 80346; 80349; 80353; 80358; 80361; 81001; 82550; 82948; 83036; 83615; 83880; 83992; 84439; 84443; 84484; 85025; 85378; 85610; 85730; 87086; 93005; 93306; 93970; 96374; 96375; 96376; 99285; G0378; J1650; J2270; J2405; J7040; Q9967

== ENCOUNTER 2016-12-14 23:32 | Observation (INO) | payer MEDICAID ==
[2016-12-14 23:54] VITALS: BMI 43.2
[2016-12-15 00:54] LABS: BASO # 0.01 K/mm3 (0.0-2.0); BASO % 0.2 % (0.0-3.0); EOS # 0.1 (0.0-0.7); GRAN # 4.06 (1.4-6.5); GRAN % 72.6 % (50.0-68.0); HEMATOCRIT 31.8 % (36.0-48.0); LYMPH # 1.1 (1.2-3.4); LYMPH % 18.8 % (22.0-35.0); MEAN CELL VOLUME 98.1 fl (80.0-105.0); MEAN CORPUSCULAR HEMOGLOBIN 31.8 pg (25.0-35.0); MEAN CORPUSCULAR HGB CONC 32.4 g/dl (31.0-37.0); MEAN PLATELET VOLUME 11.6 fl (7.0-11.0); MONO # 0.4 (0.1-0.6); MONO % 6.4 % (1.0-6.0); RED CELL DISTRIBUTION WIDTH 19.5 % (11.5-14.5); WHITE BLOOD COUNT 5.6 10^3/ul (4.5-11.0)
--- NOTE | 2016-12-15 01:07 | ED PDOC ---
Arrival/HPI - General Chief Complaint: Abdominal Pain Time Seen by Provider: 12/15/16 00:01 Historian: Patient - History of Present Illness Narrative History of Present Illness (Text): 12/15/16 01:01 Jayshree Mccarthy is a 41 year old female complaining of epigastric pain, vomiting, and constipation for a few hours. Patient states that she took pepcid this morning and vomited x1 after. Patient notes that at 15:00 today, patient began to feel the epigastric pain that radiates up associated with nausea. Patient denies similar episodes. Reports hx of cholecystectomy. Patient denies any fever, coughing, urinary symptoms, or any other complaints at this time. 12/15/16 04:44 Symptom Onset: Gradual Symptom Course: Unchanged Activities at Onset: Light Context: Home Past Medical History - Provider Review Nursing Documentation Reviewed: Yes - Infectious Disease Hx of Infectious Diseases: None - Tetanus Immunization Tetanus Immunization: Unknown - Past Medical History Past Medical History: Non-Contributing - Cardiac Hx Cardiac Disorders: Yes (hyperlipidemia) Hx Hypertension: Yes - Pulmonary Hx Respiratory Disorders: No - Neurological Hx Neurological Disorder: Yes (syncope) Other/Comment: Neuropathy Bilaterally - HEENT Hx HEENT Disorder: No - Renal Hx Renal Disorder: No - Endocrine/Metabolic Hx Endocrine Disorders: Yes Hx Diabetes Mellitus Type 2: Yes - Hematological/Oncological Hx Blood Disorders: No - Integumentary Hx Dermatological Disorder: Yes Other/Comment: hidradenitis supprativum - Musculoskeletal/Rheumatological Hx Musculoskeletal Disorders: No - Gastrointestinal Hx Gastrointestinal Disorders: Yes Hx Gall Bladder Disease: Yes (cholecystectomy) Hx Gastroesophageal Reflux: Yes Hx Pancreatitis: Yes - Genitourinary/Gynecological Hx Genitourinary Disorders: No - Psychiatric Hx Psychophysiologic Disorder: Yes Hx Depression: Yes Hx Substance Use: No - Surgical History Hx Cardiac Catheterization: Yes Hx Cholecystectomy: Yes (2005) Hx Gastric Bypass Surgery: Yes (2004) Other/Comment: left breast lumpectomy 2000, abscess removal 2016 - Anesthesia Hx Anesthesia: Yes Hx Anesthesia Reactions: No Hx Malignant Hyperthermia: No - Suicidal Assessment Feels Threatened In Home Enviroment: No Family/Social History - Physician Review Nursing Documentation Reviewed: Yes Family/Social History: No Known Family HX Smoking Status: Never Smoked Hx Alcohol Use: Yes Frequency of alcohol use: Socially Hx Substance Use: No Hx Substance Use Treatment: No Allergies/Home Meds Allergies/Adverse Reactions: Allergies alprazolam [From Xanax] Allergy (Verified 11/05/16 17:22) SWELLING ceftaroline fosamil acetate [From Teflaro] Allergy (Verified 11/05/16 17:22) SWELLING shellfish derived Allergy (Verified 11/05/16 17:22) ANAPHYLAXIS Review of Systems - Physician Review All systems were reviewed & negative as marked: Yes - Review of Systems Constitutional: absent: Fevers, Night Sweats Eyes: absent: Vision Changes ENT: absent: Hearing Changes Respiratory: SOB Cardiovascular: Chest Pain (epigastric) Gastrointestinal: Abdominal Pain, Constipation, Nausea, Vomiting. absent: Diarrhea Genitourinary Female: absent: Dysuria, Frequency, Urine Output Changes Musculoskeletal: absent: Arthralgias Skin: absent: Rash, Pruritis Neurological: absent: Headache, Dizziness Endocrine: absent: Diaphoresis Hemo/Lymphatic: absent: Adenopathy Psychiatric: absent: Depression Physical Exam - Physical Exam Narrative Physical Exam (Text): Generalized Tenderness Vital Signs Reviewed: Yes Vital Signs Temp Pulse Resp BP Pulse Ox 12/14/16 23:49 98.3 F 122 H 16 135/88 98 Temperature: Afebrile Blood Pressure: Normal Pulse: Tachycardic Respiratory Rate: Normal Appearance: Positive for: Well-Appearing, Non-Toxic, Comfortable Pain Distress: None Mental Status: Positive for: Alert and Oriented X 3 - Systems Exam Head: Present: Atraumatic, Normocephalic Pupils: Present: PERRL Extroacular Muscles: Present: EOMI Conjunctiva: Present: Normal Mouth: Present: Moist Mucous Membranes Neck: Present: Normal Range of Motion Respiratory/Chest: Present: Clear to Auscultation, Good Air Exchange. No: Respiratory Distress, Accessory Muscle Use Cardiovascular: Present: Regular Rate and Rhythm, Normal S1, S2. No: Murmurs Abdomen: Present: Tenderness (generalized), Normal Bowel Sounds. No: Distention , Peritoneal Signs Back: Present: Normal Inspection Upper Extremity: Present: Normal Inspection. No: Cyanosis, Edema Lower Extremity: Present: Normal Inspection. No: Edema Neurological: Present: GCS=15, CN II-XII Intact, Speech Normal Skin: Present: Warm, Dry, Normal Color. No: Rashes Psychiatric: Present: Alert, Oriented x 3, Normal Insight, Normal Concentration Medical Decision Making ED Course and Treatment: 12/15/16 01:12 Impression: 41 year old female complaining of midsternal chest pressure radiating up with associated shortness of breath and vomiting x1 today. Differential Diagnosis included but are not limited to: Plan: -- Urine Culture -- Urinalysis -- Labs -- Reassess and disposition Prior Visits: Notes and results from previous visits were reviewed. Patient last seen in the ED on 11/05/16 for pins and needle sensation as well as pain described as "electric shock" sensation to bilateral lower legs started below the knees down to both feet. Patient was admitted to hospitalist care for further evaluation. Progress Notes: EKG shows Sinus Tachycardia at 116 BPM with no acute ST changes with no prior for comparison. Interpreted by me. 12/15/16 01:34 Reviewed lab results, shows elevated lipase. Will get CT. 12/15/16 04:41 CT Abdomen and Pelvis With Intravenous Contrast: Dictated and Authenticated by: Yulissa Kwan MD FINDINGS: Cholecystectomy clips are present. The liver is decreased in attenuation consistent with fatty infiltration. The spleen is normal. There are 2 stable punctate areas of low attenuation in the pancreatic body image 77. There is questionable minimal haziness and indistinctness the pancreatic head that could represent very early inflammatory changes of pancreatitis. No fluid collections No hydronephrosis or perinephric stranding. Evidence of gastric surgery. Colonic diverticulosis is present. A normal appendix is identified coronal images 66 through 76. IMPRESSION: Questionable very minimal haziness adjacent to the pancreatic head possibly representing early inflammatory changes of pancreatitis. 12/15/16 04:45 Patient has persistent pain and nausea. Will give additional pain medication and IVF and transfer to observation for pancreatitis. Reports hx of cholecystectomy and reports daily alcohol use. - Lab Interpretations Lab Results: 12/15/16 00:35 12/15/16 00:35 Lab Results 12/15/16 01:39: POC Glucose (mg/dL) 198 H 12/15/16 01:00: Urine Color Yellow, Urine Appearance Sl cloudy, Urine pH 6.0, Ur Specific [place] 1.025, Urine Protein Trace H, Urine Glucose (UA) 100 H, Urine Ketones 15 H, Urine Blood Trace-intact H, Urine Nitrate Negative, Urine Bilirubin Negative, Urine Urobilinogen 0.2, Ur Leukocyte Esterase Small H, Urine RBC 0 - 2, Urine WBC 1 - 3, Ur Epithelial Cells 1 - 3, Urine Bacteria Mod , Urine HCG, Qual Negative 12/15/16 00:35: Total Creatine Kinase 198, Troponin I < 0.01 12/15/16 00:35: Sodium 135, Potassium 4.0, Chloride 97, Carbon Dioxide 26, Anion Gap 16, BUN 12, Creatinine 0.5 L, Est GFR ( Amer) > 60, Est GFR ( Non-Af Amer) > 60, Random Glucose 218 H, Calcium 8.5, Phosphorus 2.7, Magnesium 1.9, Total Bilirubin 0.6, AST 90 H D, ALT 39, Alkaline Phosphatase 112, Total Protein 8.3, Albumin 3.8, Globulin 4.5, Albumin/Globulin Ratio 0.8 L, Lipase 782 H 12/15/16 00:35: WBC 5.6 D, RBC 3.24 L, Hgb 10.3 L, Hct 31.8 L, MCV 98.1, MCH 31.8, MCHC 32.4, RDW 19.5 H, Plt Count 108 L, MPV 11.6 H, Gran % 72.6 H, Lymph % (Auto) 18.8 L, [place] % (Auto) 6.4 H, Eos % (Auto) 2.0, Baso % (Auto) 0.2, Gran # 4.06, Lymph # 1.1 L, [place] # 0.4, Eos # 0.1, Baso # 0.01 I have reviewed the lab results: Yes - RAD Interpretation Radiology Orders: 12/15/16 01:34 ABD & PELVIS IV CONTRAST ONLY [CT] Stat - Medication Orders Current Medication Orders: Sodium Chloride (Sodium Chloride 0.9%) 500 mls @ 999 mls/hr IV .Q31M STA Stop: 12/15/16 05:00 Discontinued Medications Acetaminophen (Tylenol 325mg Tab) 650 mg PO STAT STA Stop: 12/15/16 02:57 Last Admin: 12/15/16 03:03 Dose: 650 mg MAR Pain/Vitals Document 12/15/16 03:03 OCS (Rec: 12/15/16 03:03 OCS [id number]) Pain Reassessment Is This A Pain ReAssessment? Yes Sleep Is patient sleeping during reassessment? No Presence of Pain Presence of Pain Yes Pain Scale Used Pain Scale Used Numeric Location Pain Location Body Site Back Ketorolac Tromethamine (Toradol) 30 mg IVP STAT STA Stop: 12/15/16 01:21 Last Admin: 12/15/16 01:41 Dose: 30 mg MAR Pain Assessment Document 12/15/16 01:41 OCS (Rec: 12/15/16 01:[address] [facility] [id number]) Pain Reassessment Is this a pain reassessment? Yes Sleep Is patient sleeping during reassessment? No Presence of Pain Presence of Pain No Location Pain Location Body Site Chest Abdomen Description Description Constant Intensity of Pain at present 81 Pain Behavior Irritability IVP Administration Document 12/15/16 01:41 OCS (Rec: 12/15/16 01:41 OCS [id number]) Charges for Administration # of IVP Administrations 1 - Scribe Statement The provider has reviewed the documentation as recorded by the Scribe Neyda Jimenez Provider Scribe Attestation: All medical record entries made by the Scribe were at my direction and personally dictated by me. I have reviewed the chart and agree that the record accurately reflects my personal performance of the history, physical exam, medical decision making, and the department course for this patient. I have also personally directed, reviewed, and agree with the discharge instructions and disposition. Disposition/Present on Arrival - Present on Arrival Any Indicators Present on Arrival: No History of DVT/PE: No History of Uncontrolled Diabetes: Yes Urinary Catheter: No History of Decub. Ulcer: No History Surgical Site Infection Following: None - Disposition Have Diagnosis and Disposition been Completed?: Yes Diagnosis: Pancreatitis Disposition: HOSPITALIZED Disposition Time: 04:46 Patient Plan: Observation Condition: FAIR Referrals: Prateek Cantu MD [Primary Care Provider] - Follow up with primary Forms: [employer] (Croatian)
[2016-12-15 01:08] LABS: URINE BILIRUBIN NEGATIVE (NEGATIVE); URINE BLOOD TRACE-INTACT (NEGATIVE); URINE GLUCOSE (UA) 100 mg/dL (NEGATIVE); URINE KETONE 15 mg/dL (NEGATIVE); URINE LEUKOCYTE ESTERASE SMALL Leu/uL (NEGATIVE); URINE PROTEIN TRACE mg/dL (<30 mg/dL); URINE UROBILINOGEN 0.2 E.U./dL (<1 E.U./dL)
[2016-12-15 01:13] LABS: URINE APPEARANCE SL CLOUDY (CLEAR); URINE COLOR YELLOW (YELLOW)
[2016-12-15 01:25] LABS: URINE RBC 0 - 2 /hpf (0-2)
[2016-12-15 01:26] LABS: URINE BACTERIA MOD (NEG)
[2016-12-15 01:27] LABS: ALB/GLOB RATIO 0.8 (1.1-1.8); ALKALINE PHOSPHATASE 112 U/L (38-126); ALT/SGPT 39 U/L (7-56); AST/SGOT 90 U/L (14-36); BILIRUBIN,TOTAL 0.6 mg/dL (0.2-1.3); BLOOD UREA NITROGEN 12 mg/dL (7-21); CALCIUM 8.5 mg/dL (8.4-10.5); CARBON DIOXIDE 26 mmol/L (21-33); CHLORIDE 97 mmol/L (95-110); GFR AFRICAN-AMERICAN > 60; GLUCOSE,RANDOM 218 mg/dL (70-110); LIPASE 782 U/L (23-300); MAGNESIUM 1.9 mg/dL (1.7-2.2); PHOSPHOROUS 2.7 mg/dL (2.5-4.5); SODIUM 135 mmol/L (132-148); TOTAL PROTEIN 8.3 g/dL (5.8-8.3)
[2016-12-15] MEDS ORDERED: Iohexol 350 MG/100 ML VIAL ONE (01:43)
[2016-12-15 02:03] LABS: TROPONIN I < 0.01 ng/mL
[2016-12-15] MEDS ORDERED: Sodium Chloride 0.9% 500 ML IV STA (04:30)
--- NOTE | 2016-12-15 04:39 | CT ---
EXAM: CT Abdomen and Pelvis With Intravenous Contrast EXAM DATE/TIME: 12/15/2016 1:34 AM CLINICAL HISTORY: 41 years old, female; Pain; Abdominal pain; Generalized; Additional info: Abdominal pain, elevated lipase TECHNIQUE: Axial computed tomography images of the abdomen and pelvis with intravenous contrast. All CT scans at this facility use one or more dose reduction techniques, viz.: automated exposure control; ma/kV adjustment per patient size (including targeted exams where dose is matched to indication; i.e. head); or iterative reconstruction technique. Coronal and sagittal reformatted images were created and reviewed. CONTRAST: 96 mL of omni 350 administered intravenously. COMPARISON: CT - ABD PELVIS W/O PO OR IV CONT 2015-10-04 08:49 FINDINGS: Cholecystectomy clips are present. The liver is decreased in attenuation consistent with fatty infiltration. The spleen is normal. There are 2 stable punctate areas of low attenuation in the pancreatic body image 77. There is questionable minimal haziness and indistinctness the pancreatic head that could represent very early inflammatory changes of pancreatitis. No fluid collections. No hydronephrosis or perinephric stranding. Evidence of gastric surgery. Colonic diverticulosis is present. A normal appendix is identified coronal images 66 through 76. IMPRESSION: Questionable very minimal haziness adjacent to the pancreatic head possibly representing early inflammatory changes of pancreatitis.
[2016-12-15] MEDS ORDERED: Morphine 4 mg/ml ISec IVP STA (04:47)
[2016-12-15] MEDS ORDERED: Morphine 4 mg/ml ISec IVP PRN (05:50)
[2016-12-15] MEDS ORDERED: Lactated Ringer's 1,000 ML IV SCH (06:00)
--- NOTE | 2016-12-15 06:01 | CP.PCM.HP ---
<KAREL LARA - Last Filed: 12/15/16 06:12> History of Present Illness - History of Present Illness History of Present Illness: CC: Abdominal Pain Pt is a 41 yo female with PMH of DM type 2 and peripheral neuropathy presents to [facility] for 1 day history of abdominal pain. Pt states that she was at home yesterday when she started to acid reflux type symptoms. Pt took pepcid, which resolved her symptoms. However, later on that day she reported sharp, lower chest/epigastric pain that radiated to her back. Pt also admited to nausea and vomiting x1. Pt took a baby aspirin, which moderately resolved her symptoms. Later in the evening as the patient went to bed, she became diaphoretic and epigastric pain returned. At this time she proceeded to the ED. In the ED, pt still c/o epigastric pain radiating to back. Pt states that this is the first occurrence. Pt denied CP, SOB, fever, chills, diarrhea, constipation, or dysuria. LDMP Nov 12 (Irregular periods ~3 months). PMD: Sale[place] PMH: DM2, peripheral neuropathy Surg: Gastric bypass, cholecystectomy, left breast lumpectomy, rectal cyst removal All: Shellfish, Xanax, Ceftaroline SH: Denied tobacco or illicit drug use. Admits to 3-4 glasses of wine daily. Meds: Metformin 500 mg PO BID, Cymbalta 1 tab PO HS Present on Admission - Present on Admission Any Indicators Present on Admission: No Review of Systems - Review of Systems Review of Systems: 12 point ROS reviewed and is negative other than what is stated in HPI. Past Patient History - Infectious Disease Hx of Infectious Diseases: None - Tetanus Immunizations Tetanus Immunization: Unknown - Past Medical History & Family History Past Medical History?: Yes - Past Social History Smoking Status: Never Smoked - CARDIAC Hx Cardiac Disorders: Yes (hyperlipidemia) Hx Hypertension: Yes - PULMONARY Hx Respiratory Disorders: No - NEUROLOGICAL Hx Neurological Disorder: Yes (syncope) Other/Comment: Neuropathy Bilaterally - HEENT Hx HEENT Problems: No - RENAL Hx Chronic Kidney Disease: No - ENDOCRINE/METABOLIC Hx Endocrine Disorders: Yes Hx Diabetes Mellitus Type 2: Yes - HEMATOLOGICAL/ONCOLOGICAL Hx Blood Disorders: No - INTEGUMENTARY Hx Dermatological Problems: Yes Other/Comment: hidradenitis supprativum - MUSCULOSKELETAL/RHEUMATOLOGICAL Hx Musculoskeletal Disorders: No - GASTROINTESTINAL Hx Gastrointestinal Disorders: Yes Hx Gall Bladder Disease: Yes (cholecystectomy) Hx Gastroesophageal Reflux: Yes Hx Pancreatitis: Yes - GENITOURINARY/GYNECOLOGICAL Hx Genitourinary Disorders: No - PSYCHIATRIC Hx Psychophysiologic Disorder: Yes Hx Depression: Yes Hx Substance Use: No - SURGICAL HISTORY Hx Cardiac Catheterization: Yes Hx Cholecystectomy: Yes (2005) Hx Gastric Bypass Surgery: Yes (2004) Other/Comment: left breast lumpectomy 2001, abscess removal 2016 - ANESTHESIA Hx Anesthesia: Yes Hx Anesthesia Reactions: No Hx Malignant Hyperthermia: No Meds Allergies/Adverse Reactions: Allergies Allergy/AdvReac Type Severity Reaction Status Date / Time alprazolam [From Xanax] Allergy SWELLING Verified 11/05/16 17:22 ceftaroline fosamil acetate Allergy SWELLING Verified 11/05/16 17:22 [From Teflaro] shellfish derived Allergy ANAPHYLAXIS Verified 11/05/16 17:22 Physical Exam - Constitutional Appears: In Acute Distress - Head Exam Head Exam: ATRAUMATIC, NORMOCEPHALIC - Eye Exam Eye Exam: EOMI, PERRL - ENT Exam ENT Exam: Mucous Membranes Moist - Neck Exam Neck exam: Positive for: Full Rom. Negative for: Lymphadenopathy, Tenderness, Thyromegaly - Respiratory Exam Respiratory Exam: Clear to Auscultation Bilateral. absent: Rales, Rhonchi, Wheezes - Cardiovascular Exam Cardiovascular Exam: RRR, +S1, +S2. absent: Diastolic murmur, Gallop, Rubs, Systolic Murmur - GI/Abdominal Exam GI & Abdominal Exam: Soft, Tenderness (epigastric). absent: Distended, Guarding , Organomegaly, Rebound - Extremities Exam Extremities exam: Positive for: normal inspection - Neurological Exam Neurological exam: Alert, Oriented x3 - Psychiatric Exam Psychiatric exam: Normal Affect, Normal Mood - Skin Skin Exam: Diaphoretic, Intact, Normal Color, Warm Results - Vital Signs Recent Vital Signs: Last Vital Signs Temp 98.3 F 12/14/16 23:49 Pulse 95 H 12/15/16 03:34 Resp 16 12/15/16 03:34 BP 132/82 12/15/16 03:34 Pulse Ox 99 12/15/16 03:34 - Labs Result Diagrams: 12/15/16 00:35 12/15/16 00:35 Assessment & Plan - Assessment and Plan (Free Text) Assessment: 41 yo female with PMH of DM2 and peripheral neuropathy presented epigastric pain radiating to back with lipase 782 will be admitted for evaluation and treatment for acute pancreatitis. Plan: 1. Acute Pancreatitis - CT abdomen showed early inflammatory changes of pancreas - Lipase 782 - LR at 150 ml/hr - NPO - Morphine for pain control 2. DM - ISS - Accuchecks ACHS 3. Anemia - Hgb 10.3 - Monitor 4. Thrombocytopenia - Plt 108 - Monitor DVT/GI PPx - Protonix - SCDs Pt discussed in detail with Dr. Jones. Valeriano Lara, PGY1 <Perez Jones Q - Last Filed: 12/15/16 06:32> Results - Vital Signs Recent Vital Signs: Last Vital Signs Temp 98.3 F 12/14/16 23:49 Pulse 95 H 12/15/16 03:34 Resp 16 12/15/16 03:34 BP 132/82 12/15/16 03:34 Pulse Ox 99 12/15/16 03:34 - Labs Result Diagrams: 12/15/16 00:35 12/15/16 00:35 Attending/Attestation - Attestation I have personally seen and examined this patient.: Yes I have fully participated in the care of the patient.: Yes I have reviewed all pertinent clinical information: Yes Notes (Text): 12/15/16 06:30 I agree with the above mentioned note and exam by the resident with the addition /exception of the followin41 y/o female with type 2 DM presents to the ED with abdominal pain secondary to pancreatitis. Patient will be kept on IV Analgesics, LR @ 150cc/hr; she admits to taking Vitamin D pills daily as well as drinking 2-3 glasses of wine daily. Will check a vitamin D level and place her on CIWA protocol for possible alcohol withdrawal, although the patient reports never having gone through alcohol withdrawal during periods of cessation.
[2016-12-15 08:33] LABS: CHOLESTEROL 194 mg/dL (130-200)
[2016-12-15] MEDS: Insulin Lispro (humaLOG) MEDIUM Coverage SC SCH ×3 (09:14→18:20)
[2016-12-15] MEDS: levoFLOXacin 500 mg in D5W 500 MG/100 ML BAG IVPB SCH (09:16)
[2016-12-15] MEDS: Morphine 2 mg/ml ISec IVP PRN ×2 (14:01→20:28)
--- NOTE | 2016-12-15 16:36 | CP.PCM.CON ---
<Bessy Todd - Last Filed: 12/15/16 16:36> History of Present Illness - History of Present Illness History of Present Illness: Seen and examined at the bedside earlier this afternoon, the chart was reviewed. Request for GI consult is for pancreatitis. HPI: This is a 41-year-old obese female with a past medical history of diabetes mellitus type 2 peripheral neuropathy, diverticulitis, came to the emergency room with complaint of abdominal pain. She reports that she is been having intermittent abdominal pain for the past week and yesterday the pain became intense. She complains of pain in the epigastric area that radiated to her back , she reports it as a sharp pain. She does report nausea, had episode of vomiting, she she did notice some streaks of blood in the mucus no coffee ground hematemesis the patient states that she was coughing a lot recently. The patient reports that she drinks about 5-6 glasses of wine every day, she does have history of increased alcohol intake in the past, she quit about 2 years ago and wanted detox. 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 She denies any change in bowel habits, she did have a bowel movement yesterday which was semi-loose, no melena or bright red blood. She does report intentional weight loss of about 60 pounds she has been watching her diet and exercising. She does report acid reflux and is currently on Pepcid. Her last endoscopy and colonoscopy was March [address] Ratliff, found to have gastritis and duodenitis, biopsies were negative for acute findings, on colonoscopy multiple biopsies were obtained to rule out nonspecific colitis, which were negative. On admission she had CT scan with IV contrast and that showed questionable minimal haziness in the pancreatic head possibly representing an early inflammatory changes of pancreatitis. Past medical history diabetes mellitus type 2 peripheral neuropathy, diverticulosis, diverticulitis, alcohol abuse, obesity Surgical history cholecystectomy, gastric bypass, left breast lumpectomy, rectal cyst removal Family history: Noncontributory at this time Allergies: Shellfish, Xanax, Ceftarlone Meds: Reviewed as per MAR Social history: Denies tobacco, positive EtOH, denies drugs LMP: 11/12, irregular ROS: Systems reviewed positive findings see HPI Past Patient History - Infectious Disease Hx of Infectious Diseases: None - Tetanus Immunizations Tetanus Immunization: Unknown - Past Medical History & Family History Past Medical History?: Yes - Past Social History Smoking Status: Never Smoked - CARDIAC Hx Cardiac Disorders: No - PULMONARY Hx Respiratory Disorders: No - NEUROLOGICAL Hx Neurological Disorder: No - HEENT Hx HEENT Problems: No - RENAL Hx Chronic Kidney Disease: No - ENDOCRINE/METABOLIC Hx Endocrine Disorders: Yes Hx Diabetes Mellitus Type 1: Yes - HEMATOLOGICAL/ONCOLOGICAL Hx Blood Disorders: No - INTEGUMENTARY Hx Dermatological Problems: No - MUSCULOSKELETAL/RHEUMATOLOGICAL Hx Falls: No - GASTROINTESTINAL Hx Gastrointestinal Disorders: Yes Hx Gall Bladder Disease: Yes (cholecystectomy) Hx Gastroesophageal Reflux: Yes Hx Pancreatitis: Yes - GENITOURINARY/GYNECOLOGICAL Hx Genitourinary Disorders: No - PSYCHIATRIC Hx Psychophysiologic Disorder: Yes Hx Depression: Yes - SURGICAL HISTORY Hx Surgeries: Yes Hx Cholecystectomy: Yes (2005) Hx Gastric Bypass Surgery: Yes (2004) Other/Comment: left breast lumpectomy 2000, abscess removal 2016 - ANESTHESIA Hx Anesthesia: Yes Hx Anesthesia Reactions: No Hx Malignant Hyperthermia: No Meds Allergies/Adverse Reactions: Allergies Allergy/AdvReac Type Severity Reaction Status Date / Time alprazolam [From Xanax] Allergy SWELLING Verified 11/05/16 17:22 ceftaroline fosamil acetate Allergy SWELLING Verified 11/05/16 17:22 [From Teflaro] shellfish derived Allergy ANAPHYLAXIS Verified 11/05/16 17:22 - Medications Medications: Current Medications Gabapentin (Neurontin) 300 mg PO HS [facility] PRN Reason: Protocol Levofloxacin/Dextrose (Levaquin 500mg) 500 mg in 100 mls @ 100 mls/hr IVPB DAILY [facility] Last Admin: 12/15/16 09:16 Dose: 100 mls/hr Lactated Ringer's (Lactated Ringer's) 1,000 mls @ 100 mls/hr IV .Q10H [facility] Insulin Human Lispro (Humalog Med) 0 units SC ACHS [facility] PRN Reason: Protocol Last Admin: 12/15/16 11:30 Dose: Not Given Morphine Sulfate (Morphine) 2 mg IVP Q3H PRN PRN Reason: Pain, moderate (4-7) Last Admin: 12/15/16 14:01 Dose: 2 mg Ondansetron HCl (Zofran Inj) 4 mg IVP Q4H PRN PRN Reason: Nausea/Vomiting Last Admin: 12/15/16 13:44 Dose: 4 mg Pantoprazole Sodium (Protonix Inj) 40 mg IVP DAILY [facility] Last Admin: 12/15/16 09:16 Dose: 40 mg Physical Exam - Constitutional Appears: No Acute Distress - Head Exam Head Exam: NORMOCEPHALIC - Eye Exam Eye Exam: Normal appearance. absent: Scleral icterus - ENT Exam ENT Exam: Mucous Membranes Moist - Respiratory Exam Respiratory Exam: Clear to Auscultation Bilateral, Respiratory Distress, NORMAL BREATHING PATTERN - Cardiovascular Exam Cardiovascular Exam: +S1, +S2 - GI/Abdominal Exam GI & Abdominal Exam: Normal Bowel Sounds, Soft, Tenderness (epigastric with diffuse tenderness to right quadrant). absent: Guarding, Rebound - Extremities Exam Extremities exam: Positive for: pedal pulses present. Negative for: calf tenderness, pedal edema - Neurological Exam Neurological exam: Alert, CN II-XII Intact, Oriented x3 - Skin Skin Exam: Dry, Warm Results - Vital Signs Recent Vital Signs: Last Vital Signs Temp 98 F 12/15/16 08:28 Pulse 103 H 12/15/16 08:28 Resp 20 12/15/16 08:28 BP 128/68 12/15/16 08:28 Pulse Ox 97 12/15/16 08:28 - Labs Result Diagrams: 12/15/16 00:35 12/15/16 00:35 Labs: Laboratory Results - last 24 hr 12/15/16 12/15/16 12/15/16 08:02 08:02 08:14 POC Glucose (mg/dL) 147 H Triglycerides 94 Cholesterol 194 LDL Cholesterol Direct 109 HDL Cholesterol 78 H 25-OH Vitamin D Total < 12.8 L 12/15/16 11:30 POC Glucose (mg/dL) 163 H Triglycerides Cholesterol LDL Cholesterol Direct HDL Cholesterol 25-OH Vitamin D Total Assessment & Plan - Assessment and Plan (Free Text) Assessment: Assessment: Abdominal pain Acute pancreatitis Alcohol abuse History of peripheral neuropathy Obesity Diabetes mellitus type 2 History of gastric bypass History of cholecystectomy Cystitis GERD Plan: Continue IV F Continue PPI On clear liquids Alcohol cessation On IV Levaquin Check lipase in a.m. Monitor LFTs On Neurontin Zofran when necessary Pain management Thank you for this consult and for allowing us to participate in your patient's care, further recommendations based upon clinical course. Seen and discussed with Dr. Green. <Jeimy Green V - Last Filed: 12/15/16 21:42> Meds - Medications Medications: Current Medications Gabapentin (Neurontin) 300 mg PO HS JAGRUTI PRN Reason: Protocol Levofloxacin/Dextrose (Levaquin 500mg) 500 mg in 100 mls @ 100 mls/hr IVPB DAILY [facility] Last Admin: 12/15/16 09:16 Dose: 100 mls/hr Lactated Ringer's (Lactated Ringer's) 1,000 mls @ 100 mls/hr IV .Q10H [facility] Last Admin: 12/15/16 18:22 Dose: 100 mls/hr Insulin Human Lispro (Humalog Med) 0 units SC ACHS [facility]AG[facility]I PRN Reason: Protocol Last Admin: 12/15/16 18:20 Dose: 1 units Morphine Sulfate (Morphine) 2 mg IVP Q3H PRN PRN Reason: Pain, moderate (4-7) Last Admin: 12/15/16 20:28 Dose: 2 mg Ondansetron HCl (Zofran Inj) 4 mg IVP Q4H PRN PRN Reason: Nausea/Vomiting Last Admin: 12/15/16 13:44 Dose: 4 mg Pantoprazole Sodium (Protonix Inj) 40 mg IVP DAILY [facility] Last Admin: 12/15/16 09:16 Dose: 40 mg Results - Vital Signs Recent Vital Signs: Last Vital Signs Temp 98 F 12/15/16 08:28 Pulse 103 H 12/15/16 08:28 Resp 20 12/15/16 08:28 BP 128/68 12/15/16 08:28 Pulse Ox 97 12/15/16 08:28 - Labs Result Diagrams: 12/15/16 00:35 12/15/16 00:35 Labs: Laboratory Results - last 24 hr 12/15/16 12/15/16 12/15/16 06:00 08:02 08:02 POC Glucose (mg/dL) Hemoglobin A1c 8.6 H Triglycerides 94 Cholesterol 194 LDL Cholesterol Direct 109 HDL Cholesterol 78 H 25-OH Vitamin D Total < 12.8 L 12/15/16 12/15/16 12/15/16 08:14 11:30 16:50 POC Glucose (mg/dL) 147 H 163 H 175 H Hemoglobin A1c Triglycerides Cholesterol LDL Cholesterol Direct HDL Cholesterol 25-OH Vitamin D Total Attending/Attestation - Attestation I have personally seen and examined this patient.: Yes I have fully participated in the care of the patient.: Yes I have reviewed all pertinent clinical information: Yes Notes (Text): p 12/15/16 21:42
[2016-12-15] MEDS: Lactated Ringer's 1,000 ML IV SCH (18:22)
[2016-12-16] MEDS: Insulin Lispro (humaLOG) MEDIUM Coverage SC SCH ×5 (00:21→21:27)
[2016-12-16] MEDS: Morphine 2 mg/ml ISec IVP PRN ×3 (01:16→11:04)
[2016-12-16 06:37] LABS: MEAN CELL VOLUME 100.7 fl (80.0-105.0); MEAN CORPUSCULAR HEMOGLOBIN 31.9 pg (25.0-35.0); MEAN CORPUSCULAR HGB CONC 31.7 g/dl (31.0-37.0); MEAN PLATELET VOLUME 12.2 fl (7.0-11.0); RED CELL DISTRIBUTION WIDTH 19.8 % (11.5-14.5); WHITE BLOOD COUNT 6.3 10^3/ul (4.5-11.0)
[2016-12-16 06:47] LABS: ALB/GLOB RATIO 0.8 (1.1-1.8); ALKALINE PHOSPHATASE 107 U/L (38-126); ALT/SGPT 36 U/L (7-56); AST/SGOT 64 U/L (14-36); BILIRUBIN,TOTAL 0.8 mg/dL (0.2-1.3); BLOOD UREA NITROGEN 15 mg/dL (7-21); CALCIUM 8.3 mg/dL (8.4-10.5); CARBON DIOXIDE 29 mmol/L (21-33); CHLORIDE 97 mmol/L (98-107); GFR AFRICAN-AMERICAN > 60; GLUCOSE,RANDOM 165 mg/dL (70-110); MAGNESIUM 1.7 mg/dL (1.7-2.2); PHOSPHOROUS 3.6 mg/dL (2.5-4.5); SODIUM 133 mmol/L (132-148)
[2016-12-16 08:14] VITALS: RESP 20
--- NOTE | 2016-12-16 09:40 | CP.PCM.PN ---
<Marlin Hood - Last Filed: 12/16/16 12:40> Subjective - Date & Time of Evaluation Date of Evaluation: 12/16/16 Time of Evaluation: 09:40 - Subjective Subjective: Hospitalist Service Progress Note: Patient seen and examined at bedside. Per nursing no acute events overnight. Patient states that she is feeling nauseous. Still having some abdominal pain. Offers no other complaints at this time. Denies fevers, chills, vomiting, headaches, dizziness, cp, palpitations, sob, urinary symptoms, changes in bowel habits. Objective - Vital Signs/Intake and Output Vital Signs (last 24 hours): Temp Pulse Resp BP Pulse Ox 98 F 96 H 20 125/80 95 12/16/16 07:00 12/16/16 07:00 12/16/16 07:00 12/16/16 07:00 12/16/16 07:00 - Medications Medications: Current Medications Gabapentin (Neurontin) 300 mg PO HS [facility] PRN Reason: Protocol Last Admin: 12/16/16 00:31 Dose: 300 mg Levofloxacin/Dextrose (Levaquin 500mg) 500 mg in 100 mls @ 100 mls/hr IVPB DAILY [facility] Last Admin: 12/15/16 09:16 Dose: 100 mls/hr Lactated Ringer's (Lactated Ringer's) 1,000 mls @ 100 mls/hr IV .Q10H [facility] Last Admin: 12/15/16 18:22 Dose: 100 mls/hr Insulin Human Lispro (Humalog Med) 0 units SC ACHS [facility] PRN Reason: Protocol Last Admin: 12/16/16 00:21 Dose: Not Given Morphine Sulfate (Morphine) 2 mg IVP Q3H PRN PRN Reason: Pain, moderate (4-7) Last Admin: 12/16/16 06:48 Dose: 2 mg Ondansetron HCl (Zofran Inj) 4 mg IVP Q4H PRN PRN Reason: Nausea/Vomiting Last Admin: 12/15/16 13:44 Dose: 4 mg Pantoprazole Sodium (Protonix Inj) 40 mg IVP DAILY [facility] Last Admin: 12/15/16 09:16 Dose: 40 mg - Labs Labs: 12/16/16 06:00 12/16/16 06:00 - Constitutional Appears: Well, No Acute Distress - Head Exam Head Exam: ATRAUMATIC, NORMAL INSPECTION - Eye Exam Eye Exam: EOMI, Normal appearance Pupil Exam: NORMAL ACCOMODATION - ENT Exam ENT Exam: Mucous Membranes Moist - Neck Exam Neck Exam: Full ROM - Respiratory Exam Respiratory Exam: Clear to Ausculation Bilateral, NORMAL BREATHING PATTERN. absent: Rales, Rhonchi, Wheezes - Cardiovascular Exam Cardiovascular Exam: REGULAR RHYTHM, +S1, +S2 - GI/Abdominal Exam GI & Abdominal Exam: Soft, Tenderness. absent: Distended, Firm, Guarding, Rigid , Rebound - Extremities Exam Extremities Exam: Calf Tenderness, Normal Inspection - Back Exam Back Exam: NORMAL INSPECTION - Neurological Exam Neurological Exam: Alert, Awake, Oriented x3 - Psychiatric Exam Psychiatric exam: Normal Affect, Normal Mood - Skin Skin Exam: Dry, Normal Color, Warm Assessment and Plan - Assessment and Plan (Free Text) Assessment: 41 yo female with PMH of obesity s/p gastric bypass, DM2 and peripheral neuropathy presented epigastric pain radiating to back with lipase 782 will be admitted for evaluation and treatment for acute pancreatitis. Plan: 1. Acute Pancreatitis 2/2 alcohol abuse - CT abdomen showed early inflammatory changes of pancreas - Lipase 782 on admission - Continue LR at 150 ml/hr - Zofran prn nausea - Morphine for pain control prn - Monitor labs, f/u repeat lipase - Soft diet for lunch today - GI on consult, f/u recommendations - Strongly advised alcohol cessation - CIWA protocol 2. DM Type 2 - On metformin at home, will hold at this time - Continue ISS - Accuchecks ACHS - Gabapentin for peripheral neuropathy 3. Anemia - Hgb 9.5 today - No active signs of bleeding at this time - Will continue to Monitor 4. Thrombocytopenia - Plt 108 --> 84 - Will discontinue protonix - Continue to monitor 5. Urinary Tract Infection - UA showing small leuk esterase - Started on Levoquin (day 2) - F/U urine culture DVT/GI PPx - Pepcid - SCDs <Lamont Keith - Last Filed: 12/16/16 17:36> Objective - Vital Signs/Intake and Output Vital Signs (last 24 hours): Temp Pulse Resp BP Pulse Ox 98.3 F 96 H 20 132/90 98 12/16/16 15:38 12/16/16 15:38 12/16/16 15:38 12/16/16 15:38 12/16/16 15:38 - Medications Medications: Current Medications Famotidine (Pepcid) 20 mg IVP DAILY [facility] Gabapentin (Neurontin) 300 mg PO HS [facility] PRN Reason: Protocol Last Admin: 12/16/16 00:31 Dose: 300 mg Levofloxacin/Dextrose (Levaquin 500mg) 500 mg in 100 mls @ 100 mls/hr IVPB DAILY [facility] Last Admin: 12/16/16 10:08 Dose: 100 mls/hr Lactated Ringer's (Lactated Ringer's) 1,000 mls @ 100 mls/hr IV .Q10H [facility] Last Admin: 12/16/16 16:41 Dose: 100 mls/hr Insulin Human Lispro (Humalog Med) 0 units SC ACHS [facility] PRN Reason: Protocol Last Admin: 12/16/16 16:46 Dose: 1 units Morphine Sulfate (Morphine) 2 mg IVP Q3H PRN PRN Reason: Pain, moderate (4-7) Last Admin: 12/16/16 11:04 Dose: 2 mg Ondansetron HCl (Zofran Inj) 4 mg IVP Q4H PRN PRN Reason: Nausea/Vomiting Last Admin: 12/16/16 10:07 Dose: 4 mg - Labs Labs: 12/16/16 06:00 12/16/16 06:00 Attending/Attestation - Attestation I have personally seen and examined this patient.: Yes I have fully participated in the care of the patient.: Yes I have reviewed all pertinent clinical information, including history, physical exam and plan: Yes Notes (Text): 12/16/16 17:34 attending note; Patient seen and examined with resident. Patient is a 41-year-old female with a past medical history of gastric bypass surgery, anemia, alcohol abuse is admitted with alcohol-induced pancreatitis. Currently lipase is improving. Abdominal pain is resolving. Still complaining of nausea. We will start soft diet and monitor. GI evaluation appreciated. Anemia; chronic. diabetes;continue insulin sliding scale. Currently start metformin if tolerates diet. Possible discharge home tomorrow if abdominal anthony and nausea resolves. Complete alcohol cessation is strongly advised. Upon discharge patient will follow-up with PMD Dr. de leon.
[2016-12-16] MEDS: levoFLOXacin 500 mg in D5W 500 MG/100 ML BAG IVPB SCH (10:08)
--- NOTE | 2016-12-16 14:39 | CARD ---
APPROVED REPORT EKG Measurement Heart [id number] <Conclusion> Sinus tachycardia Septal infarct, age undetermined Abnormal ECG
[2016-12-16] MEDS: Lactated Ringer's 1,000 ML IV SCH (16:41)
[2016-12-16] MEDS: Morphine 4 mg/ml ISec IVP PRN ×2 (18:29→23:10)
[2016-12-17] MEDS: Lactated Ringer's 1,000 ML IV SCH (02:12)
[2016-12-17] MEDS: Morphine 4 mg/ml ISec IVP PRN (03:55)
[2016-12-17 07:42] VITALS: BP 138/74; PULSE 81; TEMP 98.7; O2SAT 94
[2016-12-17 07:48] LABS: HEMATOCRIT 29.4 % (36.0-48.0); MEAN CELL VOLUME 102.4 fl (80.0-105.0); MEAN CORPUSCULAR HEMOGLOBIN 32.1 pg (25.0-35.0); MEAN CORPUSCULAR HGB CONC 31.3 g/dl (31.0-37.0); MEAN PLATELET VOLUME 11.1 fl (7.0-11.0); RED CELL DISTRIBUTION WIDTH 19.9 % (11.5-14.5); WHITE BLOOD COUNT 5.7 10^3/ul (4.5-11.0)
[2016-12-17 07:49] LABS: ALB/GLOB RATIO 0.8 (1.1-1.8); ALKALINE PHOSPHATASE 90 U/L (38-126); ALT/SGPT 34 U/L (7-56); AST/SGOT 92 U/L (14-36); BILIRUBIN,TOTAL 0.8 mg/dL (0.2-1.3); BLOOD UREA NITROGEN 15 mg/dL (7-21); CALCIUM 8.5 mg/dL (8.4-10.5); CARBON DIOXIDE 29 mmol/L (21-33); CHLORIDE 100 mmol/L (95-110); GFR AFRICAN-AMERICAN > 60; GLUCOSE,RANDOM 151 mg/dL (70-110); POTASSIUM 4.3 mmol/L (3.6-5.0); SODIUM 135 mmol/L (132-148); TOTAL PROTEIN 7.5 g/dL (5.8-8.3)
[2016-12-17] MEDS ORDERED: Multivitamin With Minerals Tab PO SCH (08:00)
--- NOTE | 2016-12-17 09:02 | CP.PCM.DIS ---
<Marlin Hood - Last Filed: 12/17/16 09:19> Provider - Provider Date of Admission: 12/15/16 04:47 Attending physician: Lamont Keith MD Primary care physician: Prateek De Leon MD Consults: RAJINDER: Peter Time Spent in preparation of Discharge (in minutes): 31 Hospital Course - Lab Results Lab Results: Most Recent Lab Values WBC 5.7 10^3/ul (4.5-11.0) 12/17/16 06:00 RBC 2.87 10^6/uL (3.5-6.1) L 12/17/16 06:00 Hgb 9.2 g/dL (12.0-16.0) L 12/17/16 06:00 Hct 29.4 % (36.0-48.0) L 12/17/16 06:00 MCV 102.4 fl (80.0-105.0) 12/17/16 06:00 MCH 32.1 pg (25.0-35.0) 12/17/16 06:00 MCHC 31.3 g/dl (31.0-37.0) 12/17/16 06:00 RDW 19.9 % (11.5-14.5) H 12/17/16 06:00 Plt Count 73 10^3/uL (120.0-450.0) L 12/17/16 06:00 MPV 11.1 fl (7.0-11.0) H 12/17/16 06:00 Gran % 72.6 % (50.0-68.0) H 12/15/16 00:35 Lymph % (Auto) 18.8 % (22.0-35.0) L 12/15/16 00:35 [place] % (Auto) 6.4 % (1.0-6.0) H 12/15/16 00:35 Eos % (Auto) 2.0 % (1.5-5.0) 12/15/16 00:35 Baso % (Auto) 0.2 % (0.0-3.0) 12/15/16 00:35 Gran # 4.06 (1.4-6.5) 12/15/16 00:35 Lymph # 1.1 (1.2-3.4) L 12/15/16 00:35 [place] # 0.4 (0.1-0.6) 12/15/16 00:35 Eos # 0.1 (0.0-0.7) 12/15/16 00:35 Baso # 0.01 K/mm3 (0.0-2.0) 12/15/16 00:35 Sodium 135 mmol/L (132-148) 12/17/16 06:00 Potassium 4.3 mmol/L (3.6-5.0) 12/17/16 06:00 Chloride 100 mmol/L (95-110) 12/17/16 06:00 Carbon Dioxide 29 mmol/L (21-33) 12/17/16 06:00 Anion Gap 10 (10-20) 12/17/16 06:00 BUN 15 mg/dL (7-21) 12/17/16 06:00 Creatinine 0.6 mg/dL (0.7-1.2) L 12/17/16 06:00 Est GFR ( Amer) > 60 12/17/16 06:00 Est GFR (Non-Af Amer) > 60 12/17/16 06:00 POC Glucose (mg/dL) 176 mg/dL (65-110) H 12/17/16 07:11 Random Glucose 151 mg/dL (70-110) H 12/17/16 06:00 Hemoglobin A1c 8.6 % (4.2-6.5) H 12/15/16 06:00 Calcium 8.5 mg/dL (8.4-10.5) 12/17/16 06:00 Phosphorus 3.6 mg/dL (2.5-4.5) 12/16/16 06:00 Magnesium 1.7 mg/dL (1.7-2.2) 12/16/16 06:00 Total Bilirubin 0.8 mg/dL (0.2-1.3) 12/17/16 06:00 AST 92 U/L (14-36) H D 12/17/16 06:00 ALT 34 U/L (7-56) 12/17/16 06:00 Alkaline Phosphatase 90 U/L (38-126) 12/17/16 06:00 Total Creatine Kinase 198 U/L (35-230) 12/15/16 00:35 Troponin I < 0.01 ng/mL 12/15/16 00:35 Total Protein 7.5 g/dL (5.8-8.3) 12/17/16 06:00 Albumin 3.4 g/dL (3.0-4.8) 12/17/16 06:00 Globulin 4.1 gm/dL 12/17/16 06:00 Albumin/Globulin Ratio 0.8 (1.1-1.8) L 12/17/16 06:00 Triglycerides 94 mg/dL (35-160) 12/15/16 08:02 Cholesterol 194 mg/dL (130-200) 12/15/16 08:02 LDL Cholesterol Direct 109 mg/dL (0-129) 12/15/16 08:02 HDL Cholesterol 78 mg/dL (29-60) H 12/15/16 08:02 Lipase 306 U/L (23-300) H 12/16/16 07:00 25-OH Vitamin D Total < 12.8 NG/ML (30.0-100.0) L 12/15/16 08:02 Urine Color Yellow (YELLOW) 12/15/16 01:00 Urine Appearance Sl cloudy (CLEAR) 12/15/16 01:00 Urine pH 6.0 (4.7-8.0) 12/15/16 01:00 Ur Specific [place] 1.025 (1.005-1.035) 12/15/16 01:00 Urine Protein Trace mg/dL (<30 mg/dL) H 12/15/16 01:00 Urine Glucose (UA) 100 mg/dL (NEGATIVE) H 12/15/16 01:00 Urine Ketones 15 mg/dL (NEGATIVE) H 12/15/16 01:00 Urine Blood Trace-intact (NEGATIVE) H 12/15/16 01:00 Urine Nitrate Negative (NEGATIVE) 12/15/16 01:00 Urine Bilirubin Negative (NEGATIVE) 12/15/16 01:00 Urine Urobilinogen 0.2 E.U./dL (<1 E.U./dL) 12/15/16 01:00 Ur Leukocyte Esterase Small Ju[place]/uL (NEGATIVE) H 12/15/16 01:00 Urine RBC 0 - 2 /hpf (0-2) 12/15/16 01:00 Urine WBC 1 - 3 /hpf (0-6) 12/15/16 01:00 Ur Epithelial Cells 1 - 3 /hpf (0-5) 12/15/16 01:00 Urine Bacteria Mod (NEG) 12/15/16 01:00 Urine HCG, Qual Negative (NEGATIVE) 12/15/16 01:00 - Hospital Course Hospital Course: Pt is a 41 yo female with PMH of DM type 2 and peripheral neuropathy presents to [facility] for 1 day history of abdominal pain. Pt states that she was at home yesterday when she started to acid reflux type symptoms. Pt took pepcid, which resolved her symptoms. However, later on that day she reported sharp, lower chest/epigastric pain that radiated to her back. CT abd/pelvis showed early inflammatory changes of pancreatitis (see full report ). Patient was admitted for alcohol induced acute pancreatits. Lipase on admission was 782. Lipid panel was within normal limits. GI was consulted and on the case. Patient was made NPO, started on NS for fluid hydration. Diet was advanced slowly. Lipase trended down to 306. Patient has a history of alcohol abuse. States that she drinks 2-3 glasses of wine every night. Last drink was the night prior to arrival. Patient was monitored on CIWA protocol however did not exhibit alcohol withdrawal symptoms. Patient strongly advised to stop drinking alcohol, recommended that she attend AA meetings at the hospital and volunteer work that can keep her occupied. Patient is ammendable. During this admission, UA had small leuk esterase. Patient was started on Levoaquin. As patient is asymptomatic, no antibiotics were given for discharge. Urine cx still pending. For diabetes, patient was started on insulin sliding scale. Hga1c was 8.6, CBGs during admission ranged from 140-190s. Patient had mildly elevated LFTs. Also found to be anemic, hgb is stable, no active signs of bleeding. Platelets were also low, likely 2/2 alcohol induced bone marrow suppression. Will need repeat labs within 1 week. On day of discharge, patient was doing well. Pain was improved. Patient was ambulating and tolerating diet. Patient is medically stable for discharge. Instructed to follow up with Dr De Leon in 3 days. Will need to repeat CBC and LFTs. Medications were reconciled, prescriptions were given to the patient. All questions and concerns were addressed. Discharge Exam - Head Exam Head Exam: ATRAUMATIC, NORMAL INSPECTION - Eye Exam Eye Exam: EOMI, Normal appearance Pupil Exam: NORMAL ACCOMODATION, PERRL - ENT Exam ENT Exam: Mucous Membranes Moist - Neck Exam Neck exam: Full Rom - Respiratory Exam Respiratory Exam: Clear to PA & Lateral, NORMAL BREATHING PATTERN, UNREMARKABLE. absent: Rales, Rhonchi, Wheezes - Cardiovascular Exam Cardiovascular Exam: REGULAR RHYTHM, +S1, +S2 - GI/Abdominal Exam GI & Abdominal Exam: Normal Bowel Sounds, Soft. absent: Guarding, Rebound, Rigid, Tenderness - Extremities Exam Extremities exam: full ROM, normal inspection, pedal pulses present - Back Exam Back exam: NORMAL INSPECTION - Neurological Exam Neurological exam: Alert, Normal Gait, Oriented x3 - Psychiatric Exam Psychiatric exam: Normal Affect, Normal Mood - Skin Skin Exam: Dry, Normal Color, Warm Discharge Plan - Discharge Medications Prescriptions: Folic Acid 1 mg PO DAILY #30 tab Multimineral/Multivitamin [Therapeutic-M Tab] 1 tab PO 0800 #30 tab Ondansetron [Zofran] 4 mg PO Q8H PRN #6 tab PRN Reason: Nausea/Vomiting Pantoprazole [Protonix] 40 mg PO DAILY #30 ect Thiamine [Vitamin B1 Tab] 100 mg PO DAILY #30 tab - Follow Up Plan Condition: FAIR Disposition: HOME/ ROUTINE Instructions: Pancreatitis (DC), Pneumococcal Vaccine for Adults (DC), Influenza Vaccine (DC), Liver Profile (GEN), Acute Abdominal Pain (DC), Epigastric Pain (GEN), Alcohol Use Disorder (DC) Additional Instructions: 1. Follow up with PMD Dr. De Leon in 3 days. 2. Follow up cbc, lft. 3. Stop alcohol abuse. 4. Follow up with GI of choice. 5. Continue GI soft diet 6. Take medications as prescribed 7. Return to Local ER if symptoms worsen. Referrals: Jeimy Green MD [Medical Doctor] - Prateek De Leon MD [Primary Care Provider] - <Lamont Keith - Last Filed: 12/17/16 12:59> Provider - Provider Date of Admission: 12/15/16 04:47 Attending physician: Lamont Keith MD Primary care physician: Prateek De Leon MD Hospital Course - Lab Results Lab Results: Most Recent Lab Values WBC 5.7 10^3/ul (4.5-11.0) 12/17/16 06:00 RBC 2.87 10^6/uL (3.5-6.1) L 12/17/16 06:00 Hgb 9.2 g/dL (12.0-16.0) L 12/17/16 06:00 Hct 29.4 % (36.0-48.0) L 12/17/16 06:00 MCV 102.4 fl (80.0-105.0) 12/17/16 06:00 MCH 32.1 pg (25.0-35.0) 12/17/16 06:00 MCHC 31.3 g/dl (31.0-37.0) 12/17/16 06:00 RDW 19.9 % (11.5-14.5) H 12/17/16 06:00 Plt Count 73 10^3/uL (120.0-450.0) L 12/17/16 06:00 MPV 11.1 fl (7.0-11.0) H 12/17/16 06:00 Gran % 72.6 % (50.0-68.0) H 12/15/16 00:35 Lymph % (Auto) 18.8 % (22.0-35.0) L 12/15/16 00:35 [place] % (Auto) 6.4 % (1.0-6.0) H 12/15/16 00:35 Eos % (Auto) 2.0 % (1.5-5.0) 12/15/16 00:35 Baso % (Auto) 0.2 % (0.0-3.0) 12/15/16 00:35 Gran # 4.06 (1.4-6.5) 12/15/16 00:35 Lymph # 1.1 (1.2-3.4) L 12/15/16 00:35 [place] # 0.4 (0.1-0.6) 12/15/16 00:35 Eos # 0.1 (0.0-0.7) 12/15/16 00:35 Baso # 0.01 K/mm3 (0.0-2.0) 12/15/16 00:35 Sodium 135 mmol/L (132-148) 12/17/16 06:00 Potassium 4.3 mmol/L (3.6-5.0) 12/17/16 06:00 Chloride 100 mmol/L (95-110) 12/17/16 06:00 Carbon Dioxide 29 mmol/L (21-33) 12/17/16 06:00 Anion Gap 10 (10-20) 12/17/16 06:00 BUN 15 mg/dL (7-21) 12/17/16 06:00 Creatinine 0.6 mg/dL (0.7-1.2) L 12/17/16 06:00 Est GFR ( Amer) > 60 12/17/16 06:00 Est GFR (Non-Af Amer) > 60 12/17/16 06:00 POC Glucose (mg/dL) 218 mg/dL (65-110) H 12/17/16 11:14 Random Glucose 151 mg/dL (70-110) H 12/17/16 06:00 Hemoglobin A1c 8.6 % (4.2-6.5) H 12/15/16 06:00 Calcium 8.5 mg/dL (8.4-10.5) 12/17/16 06:00 Phosphorus 3.6 mg/dL (2.5-4.5) 12/16/16 06:00 Magnesium 1.7 mg/dL (1.7-2.2) 12/16/16 06:00 Total Bilirubin 0.8 mg/dL (0.2-1.3) 12/17/16 06:00 AST 92 U/L (14-36) H D 12/17/16 06:00 ALT 34 U/L (7-56) 12/17/16 06:00 Alkaline Phosphatase 90 U/L (38-126) 12/17/16 06:00 Total Creatine Kinase 198 U/L (35-230) 12/15/16 00:35 Troponin I < 0.01 ng/mL 12/15/16 00:35 Total Protein 7.5 g/dL (5.8-8.3) 12/17/16 06:00 Albumin 3.4 g/dL (3.0-4.8) 12/17/16 06:00 Globulin 4.1 gm/dL 12/17/16 06:00 Albumin/Globulin Ratio 0.8 (1.1-1.8) L 12/17/16 06:00 Triglycerides 94 mg/dL (35-160) 12/15/16 08:02 Cholesterol 194 mg/dL (130-200) 12/15/16 08:02 LDL Cholesterol Direct 109 mg/dL (0-129) 12/15/16 08:02 HDL Cholesterol 78 mg/dL (29-60) H 12/15/16 08:02 Lipase 306 U/L (23-300) H 12/16/16 07:00 25-OH Vitamin D Total < 12.8 NG/ML (30.0-100.0) L 12/15/16 08:02 Urine Color Yellow (YELLOW) 12/15/16 01:00 Urine Appearance Sl cloudy (CLEAR) 12/15/16 01:00 Urine pH 6.0 (4.7-8.0) 12/15/16 01:00 Ur Specific [place] 1.025 (1.005-1.035) 12/15/16 01:00 Urine Protein Trace mg/dL (<30 mg/dL) H 12/15/16 01:00 Urine Glucose (UA) 100 mg/dL (NEGATIVE) H 12/15/16 01:00 Urine Ketones 15 mg/dL (NEGATIVE) H 12/15/16 01:00 Urine Blood Trace-intact (NEGATIVE) H 12/15/16 01:00 Urine Nitrate Negative (NEGATIVE) 12/15/16 01:00 Urine Bilirubin Negative (NEGATIVE) 12/15/16 01:00 Urine Urobilinogen 0.2 E.U./dL (<1 E.U./dL) 12/15/16 01:00 Ur Leukocyte Esterase Small [place]/uL (NEGATIVE) H 12/15/16 01:00 Urine RBC 0 - 2 /hpf (0-2) 12/15/16 01:00 Urine WBC 1 - 3 /hpf (0-6) 12/15/16 01:00 Ur Epithelial Cells 1 - 3 /hpf (0-5) 12/15/16 01:00 Urine Bacteria Mod (NEG) 12/15/16 01:00 Urine HCG, Qual Negative (NEGATIVE) 12/15/16 01:00 Attending/Attestation - Attestation I have personally seen and examined this patient.: Yes I have fully participated in the care of the patient.: Yes I have reviewed all pertinent clinical information, including history, physical exam and plan: Yes Notes (Text): 12/17/16 12:56 attending note; Patient seen and examined with resident. Patient is a 41-year-old female with a past medical history of gastric bypass surgery, anemia, alcohol abuse is admitted with alcohol-induced pancreatitis. treated with IV fluids, and IV morphine. Currently lipase is improving. Abdominal pain resolved.tolerating soft diet.GI evaluation appreciated. Anemia; chronic. diabetes;continue insulin sliding scale. Currently start metformin if tolerates diet. discharge home today. Complete alcohol cessation is strongly advised. Upon discharge patient will follow-up with PMD Dr. de leon. diagnosis; Alcohol abuse Pancreatitis history of Gastric bypass surgery Anemia
[2016-12-17] MEDS: Insulin Lispro (humaLOG) MEDIUM Coverage SC SCH (09:10)
--- NOTE | 2016-12-17 16:29 | CON ---
DATE: HISTORY OF PRESENT ILLNESS: This patient was seen and evaluated earlier. Discussed with the nursing staff and the patient is tolerating the diet, feels much better. PHYSICAL EXAMINATION VITAL SIGNS: Afebrile, blood pressure is 125/80, respiration is 20, and O2 saturation is 95%. HEENT: Atraumatic, anicteric. NECK: Supple. HEART: S1 and S2 heard. LUNGS: Bilateral air entry present. ABDOMEN: Soft. There is mild tenderness present in the epigastric region on deep palpation. EXTREMITIES: No edema. No cyanosis. NEUROLOGICAL: Alert, oriented. Moves all the extremities. LABORATORY DATA: Hemoglobin 9.5, hematocrit 30, WBC 6.3, platelets 84. BUN 84, AST 64. IMPRESSION: This is a 41-year-old patient admitted with abdominal pain, history of ethyl alcohol use, clinically it is pancreatitis. The patient is slowing advancing the diet. The patient now has thrombocytopenia and on Pepcid once daily. PLAN: Follow up platelet count has shown significantly decreased now from short period of time. It could be alcohol induced. The patient has mildly elevated liver enzymes and hepatitis profile done in the past, negative. I would recommend slowly advance the diet with a close followup of the platelet count. The patient had an EGD done, status post gastric bypass. There was no ulceration noticed at that time, status post cholecystectomy. Most likely cause in her case to be considered is alcohol-induced pancreatitis, advised the patient to strictly avoid it. I would recommend manual platelet count in the a.m. We will continue to closely follow up her care and suggest further management based on the clinical course. Jeimy Green MD
[2016-12-18] MEDS ORDERED: Pantoprazole 40 mg EC Tab PO SCH (06:00)
== END 2016-12-17 13:22 | disposition home or self-care (01) ==
LOC: ED 23:32 → ERH 12-15 04:47 → 5RNO 12-15 06:25
PROVIDERS: ADMIT Internal Medicine; ATTEND Internal Medicine
DX: K85.20 Alcohol induced acute pancreatitis without necrosis or infection (principal); N30.90 Cystitis, unspecified without hematuria; E11.42 Type 2 diabetes mellitus with diabetic polyneuropathy; F10.10 Alcohol abuse, uncomplicated; K59.00 Constipation, unspecified; E78.5 Hyperlipidemia, unspecified; K21.9 Gastro-esophageal reflux disease without esophagitis; D64.9 Anemia, unspecified; D69.6 Thrombocytopenia, unspecified; E66.9 Obesity, unspecified; Z98.84 Bariatric surgery status; Z90.49 Acquired absence of other specified parts of digestive tract; I10 Essential (primary) hypertension; L73.2 Hidradenitis suppurativa
CPT/HCPCS: 36415; 74177; 80053; 80061; 81001; 82306; 82550; 82948; 83036; 83690; 83735; 84100; 84484; 84703; 85025; 85027; 87086; 93005; 96361; 96365; 96366; 96375; 96376; 99284; C9113; G0378; J1885; J2270; J2405; J7040; J7120; Q9967

== ENCOUNTER 2018-03-07 18:20 | Inpatient (IN) | payer OTHER ==
[2018-03-07 18:21] VITALS: BMI 43.2
[2018-03-07] MEDS ORDERED: Vancomycin 500 mg Inj IVPB STA (19:26)
[2018-03-07] MEDS ORDERED: Morphine 4 mg/ml ISec IVP STA ×2 (19:28→22:09)
--- NOTE | 2018-03-07 19:33 | ED PDOC ---
Arrival/HPI - General Chief Complaint: Lower Extremity Problem/Injury Time Seen by Provider: 03/07/18 19:15 Historian: Patient - History of Present Illness Narrative History of Present Illness (Text): 03/07/18 19:29 42 F with extensive past medical history including cirrhosis of the liver (?alcoholic), cellulitis and rectal abscess presents to the emergency department with chief complaint of bilateral lower extremity pain, swelling, and warmth to touch. Patient states the pain and swelling has been progressively worse over the past 3-4 days and extends to the lower part of her abdomen. Patient reports secondarily she has been dealing with rectal abscess, has noticed a spontaneous drainage. PMD: no local Prior surgeon: Dr. Spears Patient visiting from [facility]. Past Medical History - Provider Review Nursing Documentation Reviewed: Yes - Infectious Disease Hx of Infectious Diseases: None - Tetanus Immunization Tetanus Immunization: Unknown - Reproductive Menopause: No - Past Medical History Past Medical History: Non-Contributing - Cardiac Hx Cardiac Disorders: No - Pulmonary Hx Respiratory Disorders: No - Neurological Hx Neurological Disorder: No - HEENT Hx HEENT Disorder: No - Renal Hx Renal Disorder: No - Endocrine/Metabolic Hx Endocrine Disorders: Yes Hx Diabetes Mellitus Type 1: Yes - Hematological/Oncological Hx Blood Disorders: No - Integumentary Hx Dermatological Disorder: No - Musculoskeletal/Rheumatological Hx Falls: No - Gastrointestinal Hx Gastrointestinal Disorders: Yes Hx Gall Bladder Disease: Yes (cholecystectomy) Hx Gastroesophageal Reflux: Yes Hx Pancreatitis: Yes - Genitourinary/Gynecological Hx Genitourinary Disorders: No - Psychiatric Hx Psychophysiologic Disorder: Yes Hx Depression: Yes Hx Substance Use: No - Surgical History Hx Cholecystectomy: Yes (2005) Hx Gastric Bypass Surgery: Yes (2004) Other/Comment: left breast lumpectomy 2000, abscess removal 2016 - Anesthesia Hx Anesthesia: Yes Hx Anesthesia Reactions: No Hx Malignant Hyperthermia: No - Suicidal Assessment Feels Threatened In Home Enviroment: No Family/Social History - Physician Review Nursing Documentation Reviewed: Yes Family/Social History: No Known Family HX Smoking Status: Never Smoked Hx Alcohol Use: Yes (quit x 3 months ago) Hx Substance Use: No Hx Substance Use Treatment: No Allergies/Home Meds Allergies/Adverse Reactions: Allergies alprazolam [From Xanax] Allergy (Verified 11/05/16 17:22) SWELLING ceftaroline fosamil acetate [From Teflaro] Allergy (Verified 11/05/16 17:22) SWELLING shellfish derived Allergy (Verified 11/05/16 17:22) ANAPHYLAXIS Home Medications: Home Meds Medication Instructions Recorded Confirmed Furosemide [Lasix] 0 mg PO DAILY 03/07/18 03/07/18 Gabapentin [Neurontin] 600 mg PO QID 03/07/18 03/07/18 Review of Systems - Physician Review All systems were reviewed & negative as marked: Yes - Review of Systems Constitutional: absent: Fevers Musculoskeletal: Other (bilateral lower extremity pain and swelling) Physical Exam - Physical Exam Narrative Physical Exam (Text): 03/07/18 19:34 Gen: VS reviewed, alert, well developed, well nourished, nontoxic, mild distress Eye: EOMI, PERRL Neck: no JVD, supple, no adenopathy CV: tachy, regular rhythm Pulm: no distress, clear to auscultation, no wheeze, no rhonchi, breath sounds equal, no rales Abd: soft, nontender, no guarding, no rebound, no rigidity, there is edema to the lower pannus Ext: there is pitting edema of the bilateral lower extremities, both areas are hot to touch, edema extends up the entire leg, there is also redness of the affected swollen area Skin: good color, no rash, no cyanosis Psych: responds appropriately to questions, normal affect Neuro: oriented x3, CN2-12 intact grossly, motor intact, sensation intact 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 will get duplex to rule out DVT, will xrays to eval for possible subq air, will get CT a/p to eval the perirectal abscess to rule out deeper soft tissue infection.admit, consider surgical consultation. Plan: -- EKG -- Abd/Pelvis CT -- Morphine -- Vancomycin -- Meropenem -- Potassium Chloride -- Blood Culture -- Lower Extremity Ultrasound -- Tibia Fibula Left X-ray -- Tibia Fibula Right X-Ray -- Reassess and disposition Progress Notes: 03/07/18 23:[address] gilliam to the hospitalist service. resident aware of admit. - Lab Interpretations I have reviewed the lab results: Yes - RAD Interpretation Narrative RAD Interpretations (Text): 03/07/18 20:42 Preliminary US report as per tech: negative for bilateral lower extremity DVT 03/07/18 21:16 xr right tibia: no subcutaneous air xr left tibia: no subcutaneous air 03/07/2018 22:14 Abd/Pelvis CT IMPRESSION: Findings compatible with cirrhosis and portal hypertension. Massive hepatosplenomegaly, ascites, anasarca. Dictator: Lennox Ren MD Radiology Orders: 03/07/18 19:26 DUPLEX LOWER EXT ART BI LMTD [US] Stat 03/07/18 19:27 ABDOMEN & PELVIS [ABD & PELVIS IV CONTRAST ONLY] [CT] Stat 03/07/18 19:28 TIBIA FIBULA LEFT [RAD] Stat TIBIA FIBULA RIGHT [RAD] Stat - EKG Interpretation EKG Interpretation (Text): 03/07/18 20:24 1948: sinus tach at 117 bpm, nml qrs, nml axis, no acute sttw abn Interpreted by ED Physician: Yes - Medication Orders Current Medication Orders: Morphine Sulfate (Morphine) 6 mg IVP STAT STA Stop: 03/07/18 19:29 Vancomycin HCl (Vancomycin Inj) 2,000 mg IVPB ONCE STA; Protocol Stop: 03/07/18 19:27 Disposition/Present on Arrival - Present on Arrival Any Indicators Present on Arrival: No History of DVT/PE: No History of Uncontrolled Diabetes: No Urinary Catheter: No History of Decub. Ulcer: No History Surgical Site Infection Following: None - Disposition Have Diagnosis and Disposition been Completed?: Yes Diagnosis: Cellulitis Disposition: HOSPITALIZED Disposition Time: 23:07 Patient Plan: Admission Condition: STABLE Discharge Instructions (ExitCare): Cellulitis (ED) Forms: [employer] (Greek)
[2018-03-07] MEDS ORDERED: Vancomycin 2 GM in Sodium Chloride 0.9% 500 ML IVPB ONE (19:45)
[2018-03-07 20:06] LABS: VENOUS BLOOD GAS BASE EXCESS 4.2 mmol/L (0.0-2.0); VENOUS BLOOD GAS PO2 58 mm/Hg (30-55); VENOUS BLOOD PH 7.36 (7.32-7.43)
[2018-03-07 20:14] LABS: ALB/GLOB RATIO 0.5 (1.1-1.8); ALBUMIN 3.1 g/dL (3.0-4.8); ALT/SGPT 20 U/L (7-56); AST/SGOT 98 U/L (14-36); BLOOD UREA NITROGEN 7 mg/dL (7-21); CALCIUM 7.9 mg/dL (8.4-10.5); GFR NON-AFRICAN AMERICAN > 60
[2018-03-07 20:16] LABS: INR 1.31; PARTIAL THROMBOPLASTIN TIME 37.7 Seconds (25.1-36.5)
[2018-03-07 20:23] LABS: HEMOGLOBIN 8.7 g/dL (12.0-16.0); MEAN CELL VOLUME 103.8 fl (80.0-105.0); MEAN CORPUSCULAR HEMOGLOBIN 33.1 pg (25.0-35.0); MEAN CORPUSCULAR HGB CONC 31.9 g/dl (31.0-37.0); RBC 2.63 10^6/uL (3.5-6.1); RED CELL DISTRIBUTION WIDTH 17.7 % (11.5-14.5); WHITE BLOOD COUNT 12.5 10^3/uL (4.5-11.0)
[2018-03-07 20:24] LABS: BASO # 0.01 K/mm3 (0.0-2.0); BASO % 0.1 % (0.0-3.0); EOS # 0.1 (0.0-0.7); GRAN # 10.66 (1.4-6.5); GRAN % 85.1 % (50.0-68.0); LYMPH # 1.3 (1.2-3.4); LYMPH % 10.1 % (22.0-35.0); MEAN PLATELET VOLUME 13.6 fl (7.0-11.0); MONO # 0.5 (0.1-0.6); MONO % 3.7 % (1.0-6.0)
[2018-03-07] MEDS ORDERED: Potassium Chloride 20 mEq ER Tab PO STA (20:43)
[2018-03-07] MEDS ORDERED: Iohexol 350 MG/100 ML VIAL ONE (20:57)
[2018-03-07] MEDS ORDERED: Meropenem IV 1 gm in NS 1 GM/50 ML BAG IVPB ONE (22:00)
--- NOTE | 2018-03-08 00:53 | CP.PCM.HP ---
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 Patient reported leg pain and swelling began 2 weeks ago before patient came up for holidays; did endorse a long train ride form [place] to [place]. She reports that she took extra lasix dose which gave no relief to LE sypmtoms. She describes erythema, warmth, and pain. Denies any fevers/chills, trauma to the area, new detergents, out doors activity, discharge. Patient does report some bleeding in her rectal area and noted that this has been chronic for her over the last few years. She reported that she's had surgeries in the past for perirectal abscess; she denies any blood BMs however does appreciate blood on toilet paper while wiping. Upon ROS denies abd pain, n/v/d/c, cp, Does admit to palpitations at night, sob, and orthopnea. Remainder 12 system ROS is otherwise negative. PMD: Naveen Quevedo - [place] PMH: As above PSH: Gastric Bypass, Cholecystectomy, L Breast lumpectomy, Rectal Abscess I+D, Recal cyst removal ALL; Xanax, Ceftaroline, Shellfish allergies Social: Past EtOH Abuse; Quit 11/13, Denies smoking hx, Denies Drug use Fam Hx: Dad - stroke, htn DM Mother- Stroke, HTN, DM Brother - HTN, Stroke Sister - Stroke Home Rx: Gabapentin 600 4x/day, Lasix 20 BID, Aldactone Present on Admission - Present on Admission Any Indicators Present on Admission: No Review of Systems - Review of Systems All systems: reviewed and no additional remarkable complaints except Review of Systems: As per HPI Past Patient History - Infectious Disease Hx of Infectious Diseases: None - Tetanus Immunizations Tetanus Immunization: Unknown - Past Medical History & Family History Past Medical History?: Yes - Past Social History Smoking Status: Never Smoked - CARDIAC Hx Cardiac Disorders: No - PULMONARY Hx Respiratory Disorders: No - NEUROLOGICAL Hx Neurological Disorder: No - HEENT Hx HEENT Problems: No - RENAL Hx Chronic Kidney Disease: No - ENDOCRINE/METABOLIC Hx Endocrine Disorders: Yes Hx Diabetes Mellitus Type 1: Yes - HEMATOLOGICAL/ONCOLOGICAL Hx Blood Disorders: No - INTEGUMENTARY Hx Dermatological Problems: No - MUSCULOSKELETAL/RHEUMATOLOGICAL Hx Falls: No - GASTROINTESTINAL Hx Gastrointestinal Disorders: Yes Hx Gall Bladder Disease: Yes (cholecystectomy) Hx Gastroesophageal Reflux: Yes Hx Pancreatitis: Yes - GENITOURINARY/GYNECOLOGICAL Hx Genitourinary Disorders: No - PSYCHIATRIC Hx Psychophysiologic Disorder: Yes Hx Depression: Yes Hx Substance Use: No - SURGICAL HISTORY Hx Cholecystectomy: Yes (2005) Hx Gastric Bypass Surgery: Yes (2004) Other/Comment: left breast lumpectomy 2000, abscess removal 2016 - ANESTHESIA Hx Anesthesia: Yes Hx Anesthesia Reactions: No Hx Malignant Hyperthermia: No Meds Allergies/Adverse Reactions: Allergies Allergy/AdvReac Type Severity Reaction Status Date / Time alprazolam [From Xanax] Allergy SWELLING Verified 11/05/16 17:22 ceftaroline fosamil acetate Allergy SWELLING Verified 11/05/16 17:22 [From Teflaro] shellfish derived Allergy ANAPHYLAXIS Verified 11/05/16 17:22 Physical Exam - Constitutional Appears: Well, Non-toxic, No Acute Distress Additional comments: Obese - Head Exam Head Exam: ATRAUMATIC, NORMOCEPHALIC - Eye Exam Eye Exam: EOMI, Normal appearance, PERRL - ENT Exam ENT Exam: Mucous Membranes Moist Additional comments: Poor dentition - Respiratory Exam Respiratory Exam: Clear to Auscultation Bilateral, NORMAL BREATHING PATTERN. absent: Rales, Rhonchi, Wheezes - Cardiovascular Exam Cardiovascular Exam: Tachycardia, +S1, +S2 - GI/Abdominal Exam GI & Abdominal Exam: Normal Bowel Sounds, Soft. absent: Tenderness Additional comments: Grossly obese abdomen Upon lifting panus; multiple lesions noted in suprapubic/ pelvic/ inguinal areas Lesions w/ purulent discharge + foul odor noted Mildly tender to palpation; expressable - Rectal Exam Rectal Exam: Deferred - Extremities Exam Additional comments: BL 2+ Pitting edema mild tenderness to palpation erythema extending from mejias to knee Mild induration appreciated in BL LE distal pulses intact bilaterally - Neurological Exam Neurological exam: Alert, CN II-XII Intact, Oriented x3 - Psychiatric Exam Psychiatric exam: Normal Affect, Normal Mood Results - Vital Signs Recent Vital Signs: Last Vital Signs Temp 98.7 F 03/07/18 18:37 Pulse 86 03/07/18 20:01 Resp 18 03/07/18 20:01 BP 121/85 03/07/18 20:01 Pulse Ox 99 03/07/18 20:01 - Labs Result Diagrams: 03/07/18 20:00 03/07/18 20:00 Labs: Laboratory Results - last 24 hr 03/07/18 03/07/18 03/07/18 20:00 20:00 20:00 WBC 12.5 H RBC 2.63 L Hgb 8.7 L Hct 27.3 L MCV 103.8 MCH 33.1 MCHC 31.9 RDW 17.7 H Plt Count 138 MPV 13.6 H Gran % 85.1 H Lymph % (Auto) 10.1 L [place] % (Auto) 3.7 Eos % (Auto) 1.0 L Baso % (Auto) 0.1 Gran # 10.66 H Lymph # (Auto) 1.3 [place] # (Auto) 0.5 Eos # (Auto) 0.1 Baso # (Auto) 0.01 PT 15.0 H INR 1.31 APTT 37.7 H pO2 58 H VBG pH 7.36 VBG pCO2 55.0 VBG HCO3 31.1 H VBG Total CO2 32.8 H VBG O2 Sat (Calc) 90.5 H VBG Base Excess 4.2 H VBG Potassium 2.9 L Sodium 141.0 Chloride 106.0 Glucose 93 Lactate 1.4 FiO2 21.0 Potassium Carbon Dioxide Anion Gap BUN Creatinine Est GFR ( Amer) Est GFR (Non-Af Amer) Random Glucose Calcium Total Bilirubin AST ALT Alkaline Phosphatase Total Protein Albumin Globulin Albumin/Globulin Ratio Venous Blood Potassium 2.9 L Blood Type Antibody Screen BBK History Checked 03/07/18 03/07/18 20:00 22:24 WBC RBC Hgb Hct MCV MCH MCHC RDW Plt Count MPV Gran % Lymph % (Auto) [place] % (Auto) Eos % (Auto) Baso % (Auto) Gran # Lymph # (Auto) [place] # (Auto) Eos # (Auto) Baso # (Auto) PT INR APTT pO2 VBG pH VBG pCO2 VBG HCO3 VBG Total CO2 VBG O2 Sat (Calc) VBG Base Excess VBG Potassium Sodium 141 Chloride 104 Glucose Lactate FiO2 Potassium 3.0 L Carbon Dioxide 31 Anion Gap 9 L BUN 7 Creatinine 0.5 L Est GFR ( Amer) > 60 Est GFR (Non-Af Amer) > 60 Random Glucose 99 Calcium 7.9 L Total Bilirubin 1.2 AST 98 H ALT 20 Alkaline Phosphatase 214 H D Total Protein 8.9 H Albumin 3.1 Globulin 5.8 Albumin/Globulin Ratio 0.5 L Venous Blood Potassium Blood Type O POSITIVE Antibody Screen Negative BBK History Checked Patient has bt Assessment & Plan - Assessment and Plan (Free Text) Assessment: 42F PMH of DM2 w/ neuropathy, Cirrhosis 2/2 EtOH Abuse, Hidradenitis Suppurativa, presented to [facility] ED on 03/08 w/ c/o BL edema/erythema x2 wks. Plan: BL LE Erythema / Edema - Cellulitis vs DVT vs CHF? BL Tib/Fib XR shows no acute pathology as interpreted by me Vanco 1.5 Q12 Merrem 500 Q12 Lasix 20 IVP Q8 BCX ID Consult Oxycodone 10mg Q6H PRN Severe pain Flexeril 5 TID PRN Mild pain C/o Dyspnea/Orthopnea No pleural effusion on lower lung windows of CT Chest BNP pending Anemia MCV normocytic Anemia studies pending: Fe/Ferritin/TIBC/B12/Folate Rectal Abscess Cellulitic changes appreciated on CT A+P 2x1cm abscess seen on exam as per ED documentation Surgery consulted, appreciate reccs Hx Cirrhosis: Cirrhotic liver w/ ascities on CTAP PT/PTT elevated; INR wnl; Albumin decreased; mild protein gap appreciated PLT normal, AST/Alk Phos elevated Start Aldactone 25 Gamma Gap - 5.8; Elevated Given Hx will r/o hep/HIV However most likely due to chronic inflammation from Hidradenitis Suppurativa Hepatitis panel pending HIV pending Hx DM ISS Low ACHS Accuchecks ACHS Hidradenitis Suppurativa Wound Care Chlorhexadine Bathe daily, keep affected area clean. Hypokalemia Repleted in ED Will likely dec w/ lasix; May increase w/ aldactone Start Kdur 20meq BID PPX: Lovenox Protonix Patient was seen, examined, discussed w/ attending Dr. 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 - Date & Time Date: 03/08/18 Time: 02:11 <Jacek,Majdi - Last Filed: 03/08/18 06:36> Results - Vital Signs Recent Vital Signs: Last Vital Signs Temp 98.7 F 03/07/18 18:37 Pulse 107 H 03/08/18 02:00 Resp 20 03/08/18 01:10 BP 125/78 03/08/18 01:56 Pulse Ox 100 03/08/18 00:46 - Labs Result Diagrams: 03/07/18 20:00 03/07/18 20:00 Labs: Laboratory Results - last 24 hr 03/07/18 03/07/18 03/07/18 20:00 20:00 20:00 WBC 12.5 H RBC 2.63 L Hgb 8.7 L Hct 27.3 L MCV 103.8 MCH 33.1 MCHC 31.9 RDW 17.7 H Plt Count 138 MPV 13.6 H Gran % 85.1 H Lymph % (Auto) 10.1 L [place] % (Auto) 3.7 Eos % (Auto) 1.0 L Baso % (Auto) 0.1 Gran # 10.66 H Lymph # (Auto) 1.3 [place] # (Auto) 0.5 Eos # (Auto) 0.1 Baso # (Auto) 0.01 PT 15.0 H INR 1.31 APTT 37.7 H pO2 58 H VBG pH 7.36 VBG pCO2 55.0 VBG HCO3 31.1 H VBG Total CO2 32.8 H VBG O2 Sat (Calc) 90.5 H VBG Base Excess 4.2 H VBG Potassium 2.9 L Sodium 141.0 Chloride 106.0 Glucose 93 Lactate 1.4 FiO2 21.0 Potassium Carbon Dioxide Anion Gap BUN Creatinine Est GFR ( Amer) Est GFR (Non-Af Amer) Random Glucose Calcium Total Bilirubin AST ALT Alkaline Phosphatase NT-Pro-B Natriuret Pep Total Protein Albumin Globulin Albumin/Globulin Ratio Venous Blood Potassium 2.9 L Blood Type Antibody Screen BBK History Checked 03/07/18 03/07/18 03/08/18 20:00 22:24 01:27 WBC RBC Hgb Hct MCV MCH MCHC RDW Plt Count MPV Gran % Lymph % (Auto) [place] % (Auto) Eos % (Auto) Baso % (Auto) Gran # Lymph # (Auto) [place] # (Auto) Eos # (Auto) Baso # (Auto) PT INR APTT pO2 VBG pH VBG pCO2 VBG HCO3 VBG Total CO2 VBG O2 Sat (Calc) VBG Base Excess VBG Potassium Sodium 141 Chloride 104 Glucose Lactate FiO2 Potassium 3.0 L Carbon Dioxide 31 Anion Gap 9 L BUN 7 Creatinine 0.5 L Est GFR ( Amer) > 60 Est GFR (Non-Af Amer) > 60 Random Glucose 99 Calcium 7.9 L Total Bilirubin 1.2 AST 98 H ALT 20 Alkaline Phosphatase 214 H D NT-Pro-B Natriuret Pep 557 H Total Protein 8.9 H Albumin 3.1 Globulin 5.8 Albumin/Globulin Ratio 0.5 L Venous Blood Potassium Blood Type O POSITIVE Antibody Screen Negative BBK History Checked Patient has bt Attending/Attestation - Attestation I have personally seen and examined this patient.: Yes I have fully participated in the care of the patient.: Yes I have reviewed all pertinent clinical information: Yes
[2018-03-08] MEDS ORDERED: CHLORHEXIDINE 4% TOP ONE (01:57)
[2018-03-08] MEDS: oxyCODONE 10 mg Immediate Release Tab PO PRN ×3 (01:57→17:38)
[2018-03-08 06:52] LABS: BASO # 0.01 K/mm3 (0.0-2.0); BASO % 0.1 % (0.0-3.0); EOS # 0.1 (0.0-0.7); EOS % 0.9 % (1.5-5.0); GRAN # 8.57 (1.4-6.5); HEMOGLOBIN 8.1 g/dL (12.0-16.0); LYMPH # 1.1 (1.2-3.4); LYMPH % 10.9 % (22.0-35.0); MEAN CORPUSCULAR HGB CONC 30.8 g/dl (31.0-37.0); MEAN PLATELET VOLUME 12.5 fl (7.0-11.0); MONO # 0.5 (0.1-0.6); MONO % 5.1 % (1.0-6.0); RBC 2.53 10^6/uL (3.5-6.1); RED CELL DISTRIBUTION WIDTH 17.7 % (11.5-14.5); WHITE BLOOD COUNT 10.3 10^3/uL (4.5-11.0)
[2018-03-08] MEDS: Pantoprazole 40 mg EC Tab PO SCH (06:54)
[2018-03-08 07:33] LABS: ALB/GLOB RATIO 0.6 (1.1-1.8); ALBUMIN 3.1 g/dL (3.0-4.8); ALT/SGPT 25 U/L (7-56); AST/SGOT 98 U/L (14-36); BLOOD UREA NITROGEN 7 mg/dL (7-21); GFR NON-AFRICAN AMERICAN > 60
[2018-03-08 07:43] LABS: IRON 57 ug/dL (45-180)
[2018-03-08 07:53] LABS: % IRON SATURATION 24 % (20-55); TOTAL IRON BINDING CAPACITY 235 ug/dL (265-497)
[2018-03-08] MEDS ORDERED: Magnesium Sulfate 2 gm/50 ml 2 GM/50 ML BAG IVPB ONE (08:07)
[2018-03-08] MEDS: Insulin Reg-LOW-Coverage SC SCH ×4 (08:09→22:06)
--- NOTE | 2018-03-08 08:17 | CP.PCM.CON ---
History of Present Illness - History of Present Illness History of Present Illness: Surgery Consult for perianal fistula 42 yo F with past medical history of perianal abscesses x6 and I &D, liver cirrhosis, cellulitis and rectal abscess presented to ED due to leg pain and swelling. Swelling and pain is imporved with lasix and spinolactone. Surgery is consulted to evaluate for perirectal fistula, abscess. Denies rectal pain, constipation, purulent drainage, fever, nausea, vomiting, diarrhea. Patient denies fever, chills, or trauma. Denies Abdominal Pain or bloating. PMHx: DM2 w/ Neuropathy, cirrhosis, cellulitis, rectal abscess PSH: Gastric Bypass, Cholecystectomy, L Breast lumpectomy, Rectal Abscess I+D, Rectal cyst removal. All: Xanax, Ceftaroline, Shellfish Social: Past EtOH Abuse, Denies Smoking, Denies Drug use Family: Dad - stroke, HTN, DM Mother - Stroke, HTN, DM Sister - Stroke Meds: Gagapaentin, Lasix, Aldactone Past Patient History - Infectious Disease Hx of Infectious Diseases: None - Tetanus Immunizations Tetanus Immunization: Unknown - Past Medical History & Family History Past Medical History?: Yes - Past Social History Smoking Status: Never Smoked - CARDIAC Hx Cardiac Disorders: No - PULMONARY Hx Respiratory Disorders: No - NEUROLOGICAL Hx Neurological Disorder: No - HEENT Hx HEENT Problems: No - RENAL Hx Chronic Kidney Disease: No - ENDOCRINE/METABOLIC Hx Endocrine Disorders: Yes Hx Diabetes Mellitus Type 1: Yes - HEMATOLOGICAL/ONCOLOGICAL Hx Blood Disorders: No - INTEGUMENTARY Hx Dermatological Problems: No - MUSCULOSKELETAL/RHEUMATOLOGICAL Hx Falls: No - GASTROINTESTINAL Hx Gastrointestinal Disorders: Yes Hx Gall Bladder Disease: Yes (cholecystectomy) Hx Gastroesophageal Reflux: Yes Hx Pancreatitis: Yes - GENITOURINARY/GYNECOLOGICAL Hx Genitourinary Disorders: No - PSYCHIATRIC Hx Psychophysiologic Disorder: Yes Hx Depression: Yes Hx Substance Use: No - SURGICAL HISTORY Hx Cholecystectomy: Yes (2005) Hx Gastric Bypass Surgery: Yes (2004) Other/Comment: left breast lumpectomy 2000, abscess removal 2016 - ANESTHESIA Hx Anesthesia: Yes Hx Anesthesia Reactions: No Hx Malignant Hyperthermia: No Meds Allergies/Adverse Reactions: Allergies Allergy/AdvReac Type Severity Reaction Status Date / Time alprazolam [From Xanax] Allergy SWELLING Verified 11/05/16 17:22 ceftaroline fosamil acetate Allergy SWELLING Verified 11/05/16 17:22 [From Teflaro] shellfish derived Allergy ANAPHYLAXIS Verified 11/05/16 17:22 - Medications Medications: Current Medications Cyclobenzaprine HCl (Flexeril) 5 mg PO TID PRN PRN Reason: Pain, Mild (1-3) Enoxaparin Sodium (Lovenox) 40 mg SC DAILY JAGRUTI; Protocol Furosemide (Lasix) 20 mg IVP Q8 JAGRUTI Last Admin: 03/08/18 06:53 Dose: 20 mg Gabapentin (Neurontin) 600 mg PO QID JAGRUTI; Protocol Last Admin: 03/08/18 01:56 Dose: 600 mg Meropenem/Sodium Chloride (Merrem Iv 500 Mg/Ns 50 Ml) 500 mg in 50 mls @ 100 mls/hr IVPB Q12 JAGRUTI; Protocol Stop: 03/08/18 10:29 Vancomycin HCl 1.5 gm/ Sodium (Chloride) 500 mls @ 167 mls/hr IVPB Q12 JAGRUTI; Protocol Insulin Human Regular (Humulin R Low) 0 units SC ACHS JAGRUTI; Protocol Oxycodone HCl (Oxycodone Immediate Release Tab) 10 mg PO Q6H PRN PRN Reason: Pain, severe (8-10) Last Admin: 03/08/18 01:57 Dose: 10 mg Pantoprazole Sodium (Protonix Ec Tab) 40 mg PO 0600 JAGRUTI Last Admin: 03/08/18 06:54 Dose: 40 mg Potassium Chloride (K-Dur 20 Meq Er Tab) 20 meq PO BID [facility] Spironolactone (Aldactone) 25 mg PO DAILY [facility] Physical Exam - Constitutional Appears: No Acute Distress - Head Exam Head Exam: ATRAUMATIC, NORMAL INSPECTION, NORMOCEPHALIC - Eye Exam Eye Exam: EOMI, Normal appearance, PERRL Pupil Exam: NORMAL ACCOMODATION, PERRL - ENT Exam ENT Exam: Mucous Membranes Moist, Normal Exam - Respiratory Exam Respiratory Exam: NORMAL BREATHING PATTERN - Cardiovascular Exam Cardiovascular Exam: REGULAR RHYTHM - GI/Abdominal Exam GI & Abdominal Exam: Soft. absent: Tenderness - Rectal Exam Rectal Exam: absent: Hemorrhoids, Fecal Impaction Additional comments: Normal sphincter tone. Healed scars. R lateral scar has 2mm punctate draining serosanguinous fluids. On physical exam, 2 trish-rectal fistula were noted, and a tender/painful pilonidal abscess pilonidal cyst Results - Vital Signs Recent Vital Signs: Last Vital Signs Temp 99.0 F 03/08/18 06:00 Pulse 113 H 03/08/18 06:00 Resp 19 03/08/18 06:00 BP 137/76 03/08/18 06:53 Pulse Ox 94 L 03/08/18 06:00 - Labs Result Diagrams: 03/08/18 06:30 03/08/18 06:30 Labs: Laboratory Results - last 24 hr 03/07/18 03/07/18 03/07/18 20:00 20:00 20:00 WBC 12.5 H RBC 2.63 L Hgb 8.7 L Hct 27.3 L MCV 103.8 MCH 33.1 MCHC 31.9 RDW 17.7 H Plt Count 138 MPV 13.6 H Gran % 85.1 H Lymph % (Auto) 10.1 L [place] % (Auto) 3.7 Eos % (Auto) 1.0 L Baso % (Auto) 0.1 Gran # 10.66 H Lymph # (Auto) 1.3 [place] # (Auto) 0.5 Eos # (Auto) 0.1 Baso # (Auto) 0.01 Retic Count PT 15.0 H INR 1.31 APTT 37.7 H pO2 58 H VBG pH 7.36 VBG pCO2 55.0 VBG HCO3 31.1 H VBG Total CO2 32.8 H VBG O2 Sat (Calc) 90.5 H VBG Base Excess 4.2 H VBG Potassium 2.9 L Sodium 141.0 Chloride 106.0 Glucose 93 Lactate 1.4 FiO2 21.0 Potassium Carbon Dioxide Anion Gap BUN Creatinine Est GFR ( Amer) Est GFR (Non-Af Amer) POC Glucose (mg/dL) Random Glucose Calcium Phosphorus Magnesium Iron TIBC % Saturation Total Bilirubin AST ALT Alkaline Phosphatase NT-Pro-B Natriuret Pep Total Protein Albumin Globulin Albumin/Globulin Ratio Venous Blood Potassium 2.9 L Blood Type Antibody Screen BBK History Checked 03/07/18 03/07/18 03/08/18 20:00 22:24 01:27 WBC RBC Hgb Hct MCV MCH MCHC RDW Plt Count MPV Gran % Lymph % (Auto) [place] % (Auto) Eos % (Auto) Baso % (Auto) Gran # Lymph # (Auto) [place] # (Auto) Eos # (Auto) Baso # (Auto) Retic Count PT INR APTT pO2 VBG pH VBG pCO2 VBG HCO3 VBG Total CO2 VBG O2 Sat (Calc) VBG Base Excess VBG Potassium Sodium 141 Chloride 104 Glucose Lactate FiO2 Potassium 3.0 L Carbon Dioxide 31 Anion Gap 9 L BUN 7 Creatinine 0.5 L Est GFR ( Amer) > 60 Est GFR (Non-Af Amer) > 60 POC Glucose (mg/dL) Random Glucose 99 Calcium 7.9 L Phosphorus Magnesium Iron TIBC % Saturation Total Bilirubin 1.2 AST 98 H ALT 20 Alkaline Phosphatase 214 H D NT-Pro-B Natriuret Pep 557 H Total Protein 8.9 H Albumin 3.1 Globulin 5.8 Albumin/Globulin Ratio 0.5 L Venous Blood Potassium Blood Type O POSITIVE Antibody Screen Negative BBK History Checked Patient has bt 03/08/18 03/08/18 03/08/18 06:30 06:30 06:30 WBC 10.3 RBC 2.53 L Hgb 8.1 L Hct 26.3 L MCV 104.0 MCH 32.0 MCHC 30.8 L RDW 17.7 H Plt Count 125 MPV 12.5 H Gran % 83.0 H Lymph % (Auto) 10.9 L [place] % (Auto) 5.1 Eos % (Auto) 0.9 L Baso % (Auto) 0.1 Gran # 8.57 H Lymph # (Auto) 1.1 L [place] # (Auto) 0.5 Eos # (Auto) 0.1 Baso # (Auto) 0.01 Retic Count 2.45 H PT INR APTT pO2 VBG pH VBG pCO2 VBG HCO3 VBG Total CO2 VBG O2 Sat (Calc) VBG Base Excess VBG Potassium Sodium 139 Chloride 104 Glucose Lactate FiO2 Potassium 3.3 L Carbon Dioxide 31 Anion Gap 8 L BUN 7 Creatinine 0.7 Est GFR ( Amer) > 60 Est GFR (Non-Af Amer) > 60 POC Glucose (mg/dL) Random Glucose 107 Calcium 8.0 L Phosphorus 4.1 Magnesium 1.3 L Iron 57 TIBC 235 L % Saturation 24 Total Bilirubin 1.3 AST 98 H ALT 25 Alkaline Phosphatase 181 H NT-Pro-B Natriuret Pep Total Protein 8.5 H Albumin 3.1 Globulin 5.4 Albumin/Globulin Ratio 0.6 L Venous Blood Potassium Blood Type Antibody Screen BBK History Checked 03/08/18 07:41 WBC RBC Hgb Hct MCV MCH MCHC RDW Plt Count MPV Gran % Lymph % (Auto) [place] % (Auto) Eos % (Auto) Baso % (Auto) Gran # Lymph # (Auto) [place] # (Auto) Eos # (Auto) Baso # (Auto) Retic Count PT INR APTT pO2 VBG pH VBG pCO2 VBG HCO3 VBG Total CO2 VBG O2 Sat (Calc) VBG Base Excess VBG Potassium Sodium Chloride Glucose Lactate FiO2 Potassium Carbon Dioxide Anion Gap BUN Creatinine Est GFR ( Amer) Est GFR (Non-Af Amer) POC Glucose (mg/dL) 95 Random Glucose Calcium Phosphorus Magnesium Iron TIBC % Saturation Total Bilirubin AST ALT Alkaline Phosphatase NT-Pro-B Natriuret Pep Total Protein Albumin Globulin Albumin/Globulin Ratio Venous Blood Potassium Blood Type Antibody Screen BBK History Checked Assessment & Plan - Assessment and Plan (Free Text) Assessment: 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 Pilonidal cyst -medical management : lasix , spinolactone -Dressing change PRN -out patient elective surgery for pilonidal cyst WIll BO Spears
[2018-03-08] MEDS ORDERED: Enoxaparin 40 mg Syringe SC SCH (10:00)
[2018-03-08] MEDS ORDERED: MEROPENEM 500 MG in NS 500 MG/50 ML BAG IVPB SCH (10:00)
--- NOTE | 2018-03-08 10:11 | RAD ---
Date of service: 03/07/2018 PROCEDURE: Radiographs of the right tibia and fibula. HISTORY: pain, subcutaneous air? COMPARISON: None available TECHNIQUE: Frontal and lateral views obtained. FINDINGS: BONES: No fracture or destructive lesion. JOINT SPACES: Unremarkable. OTHER FINDINGS: None. IMPRESSION: Unremarkable radiographs of the right tibia and fibula.
--- NOTE | 2018-03-08 10:11 | RAD ---
Date of service: 03/07/2018 PROCEDURE: Radiographs of the left tibia and fibula. HISTORY: pain, subcutaneous air? COMPARISON: None available. TECHNIQUE: Frontal and lateral views obtained. FINDINGS: BONES: No fracture or destructive lesion. JOINT SPACES: Unremarkable. OTHER FINDINGS: None. IMPRESSION: Unremarkable radiographs of the left tibia and fibula.
[2018-03-08] MEDS: Potassium Chloride 20 mEq ER Tab PO SCH ×2 (10:12→17:38)
--- NOTE | 2018-03-08 10:21 | US ---
HISTORY: Leg pain and swelling. Evaluate for DVT PHYSICIAN(S): Sven Owusu MD. TECHNIQUE: Duplex sonography and color-flow Doppler with graded compression were used to evaluate the deep venous systems of both lower extremities. The exam is very limited by body habitus and edema. The lower femoral veins and tibial veins are not adequately seen. FINDINGS: The visualized deep venous systems of both lower extremities are sonographically normal and compressible. Normal wave forms and augmentation are seen. There is no sonographic evidence for deep venous thrombosis in the visualized segments of both lower extremities. IMPRESSION: No sonographic evidence for deep venous thrombosis in the visualized segments of both lower extremities. Very limited study.
[2018-03-08] MEDS: Vancomycin 1.5 GM in Sodium Chloride 0.9% 500 ML IVPB SCH ×2 (11:28→12:30)
[2018-03-08 12:46] LABS: HEPATITIS B SURFACE AG Negative (NEGATIVE)
[2018-03-08 12:49] LABS: FERRITIN 51.4 ng/mL
--- NOTE | 2018-03-08 12:49 | CT ---
Date of service: 03/07/2018 CT abdomen and pelvis with IV contrast Indication: rectal abscess,no contraindication to iv dye Technique: Contiguous axial images of the abdomen and pelvis. Coronal and Sagittal reformats generated and reviewed. Contrast: 100 mL Omnipaque [address] exam was performed using 1 or more of the following dose reduction techniques: Automated exposure control, adjustment of the MAA and/or kV according to patient size, and/or use of iterative reconstruction technique. Radiation dose: Total exam DLP = 1275.28 MGy-cm. Comparison: CT abdomen and pelvis with IV contrast performed 12/15/16 Findings: Mild right greater than left basilar atelectasis. There is no visible pleural effusion or pneumothorax. Hepatomegaly. Extensive heterogeneity of the hepatic parenchyma. Mildly nodular hepatic contour. Recannulized umbilical vein. Splenomegaly. Cholecystectomy. Fatty atrophy of the pancreas. Question pancreatic edema. The kidneys and adrenal glands appear unremarkable. The stomach is nondistended. Postsurgical gastric changes. Anastomotic bowel suture material noted. Absence of oral contrast limits evaluation for bowel pathology. The bowel loops appear within normal limits of caliber without evidence of intestinal obstruction. There is no definite free air. Uterus is present. The urinary bladder appears unremarkable. Small abdominal and pelvic ascites. Anasarca. Two tiny metallic clips noted at the rectum. Mild degenerative changes of the osseous structures. Mild compression fracture deformity of L4, age indeterminate. Impression: Hepatomegaly. Extensive heterogeneity of the hepatic parenchyma. Mildly nodular hepatic contour. Recannulized umbilical vein. Follow-up with three-phase liver protocol CT suggested if indicated. Fatty atrophy of the pancreas. Question pancreatic edema. Recommend correlation with amylase and lipase in order to exclude possibility of acute pancreatitis. Splenomegaly. Small abdominal and pelvic ascites. Cholecystectomy. Postsurgical gastric changes. Anastomotic bowel suture material. Mild right greater than left basilar atelectasis. Additional incidental findings as above. Preliminary impression was provided by [employer]. Study marked for PA review.
[2018-03-08 12:53] LABS: HEPATITIS A IGM NEGATIVE (NEGATIVE); HEPATITIS B CORE AB NEGATIVE (NEGATIVE)
[2018-03-08 13:03] LABS: HEPATITIS C ANTIBODY NEGATIVE (NEGATIVE)
--- NOTE | 2018-03-08 14:05 | CP.PCM.CON ---
<Rios Allen - Last Filed: 03/08/18 14:07> History of Present Illness - History of Present Illness History of Present Illness: ID Consult Note 42 year old female with past medical history of DM2, questionable cirrhosis, and hidradentitis suppurativa presents for a 2 week history of worsening b/l leg edema and pain. Patient states she recently came from [place] for the holidays and recently began developing these symptoms. She denies trauma to her legs. Patient states her legs become increasingly swollen and painful. Patient also admits to rectal pain when she defecates. Patient notes blood on toilet paper.She reports having rectal issues in the past. Denies chest pain, shortness of breath, nausea, vomiting, diarrhea, fever, chills, dysuria, numbness, tingling. Medical Hx: DM2, questionable cirrhosis, and hidradentitis suppurativa Surgical Hx: Gastric Bypass, Cholecystectomy, L Breast lumpectomy, Rectal Abscess I+D, Rectal cyst removal Allergies: Xanax, Ceftaroline, Shellfish allergies Social Hx: Former alcohol use. Denies tobacco or illicit drug use Family Hx: CVA, HTN, DM Medications: Reviewed, as per MAR Review of Systems - Review of Systems Review of Systems: 12 point ROS as per HPI, otherwise negative Past Patient History - Infectious Disease Hx of Infectious Diseases: None - Tetanus Immunizations Tetanus Immunization: Unknown - Past Medical History & Family History Past Medical History?: Yes - Past Social History Smoking Status: Never Smoked - CARDIAC Hx Cardiac Disorders: No - PULMONARY Hx Respiratory Disorders: No - NEUROLOGICAL Hx Neurological Disorder: No - HEENT Hx HEENT Problems: No - RENAL Hx Chronic Kidney Disease: No - ENDOCRINE/METABOLIC Hx Endocrine Disorders: Yes Hx Diabetes Mellitus Type 1: Yes - HEMATOLOGICAL/ONCOLOGICAL Hx Blood Disorders: No - INTEGUMENTARY Hx Dermatological Problems: No - MUSCULOSKELETAL/RHEUMATOLOGICAL Hx Falls: No - GASTROINTESTINAL Hx Gastrointestinal Disorders: Yes Hx Gall Bladder Disease: Yes (cholecystectomy) Hx Gastroesophageal Reflux: Yes Hx Pancreatitis: Yes - GENITOURINARY/GYNECOLOGICAL Hx Genitourinary Disorders: No - PSYCHIATRIC Hx Psychophysiologic Disorder: Yes Hx Depression: Yes Hx Substance Use: No - SURGICAL HISTORY Hx Cholecystectomy: Yes (2005) Hx Gastric Bypass Surgery: Yes (2004) Other/Comment: left breast lumpectomy 2000, abscess removal 2015 - ANESTHESIA Hx Anesthesia: Yes Hx Anesthesia Reactions: No Hx Malignant Hyperthermia: No Meds Allergies/Adverse Reactions: Allergies Allergy/AdvReac Type Severity Reaction Status Date / Time alprazolam [From Xanax] Allergy SWELLING Verified 11/05/16 17:22 ceftaroline fosamil acetate Allergy SWELLING Verified 11/05/16 17:22 [From Teflaro] shellfish derived Allergy ANAPHYLAXIS Verified 11/05/16 17:22 - Medications Medications: Current Medications Enoxaparin Sodium (Lovenox) 40 mg SC DAILY [facility]; Protocol Furosemide (Lasix) 40 mg IVP Q12 [facility] Gabapentin (Neurontin) 600 mg PO QID [facility]; Protocol Last Admin: 03/08/18 13:11 Dose: 600 mg Insulin Human Regular (Humulin R Low) 0 units SC ACHS [facility]; Protocol Last Admin: 03/08/18 12:00 Dose: Not Given Oxycodone HCl (Oxycodone Immediate Release Tab) 10 mg PO Q6H PRN PRN Reason: Pain, severe (8-10) Last Admin: 03/08/18 10:14 Dose: 10 mg Pantoprazole Sodium (Protonix Ec Tab) 40 mg PO 0600 [facility] Last Admin: 03/08/18 06:54 Dose: 40 mg Potassium Chloride (K-Dur 20 Meq Er Tab) 20 meq PO BID [facility] Last Admin: 03/08/18 10:12 Dose: 20 meq Spironolactone (Aldactone) 25 mg PO BID [facility] Physical Exam - Constitutional Appears: Non-toxic, No Acute Distress - Head Exam Head Exam: ATRAUMATIC, NORMAL INSPECTION, NORMOCEPHALIC - Eye Exam Eye Exam: EOMI, Normal appearance - Respiratory Exam Respiratory Exam: Decreased Breath Sounds, NORMAL BREATHING PATTERN - Cardiovascular Exam Cardiovascular Exam: RRR, +S1, +S2 - GI/Abdominal Exam GI & Abdominal Exam: Normal Bowel Sounds, Soft. absent: Tenderness - Rectal Exam Additional comments: Deferred. Bandaged by surgical team - Extremities Exam Extremities exam: Positive for: calf tenderness (b/l), tenderness (b/l). Negative for: pedal edema (+2 edema b/l) - Neurological Exam Neurological exam: Alert, CN II-XII Intact, Oriented x3 - Psychiatric Exam Psychiatric exam: Normal Affect, Normal Mood - Skin Skin Exam: Intact, Normal Color, Warm Results - Vital Signs Recent Vital Signs: Last Vital Signs Temp 98.9 F 03/08/18 12:00 Pulse 109 H 03/08/18 12:00 Resp 19 03/08/18 12:00 BP 146/78 03/08/18 12:00 Pulse Ox 94 L 03/08/18 06:00 - Labs Result Diagrams: 03/08/18 06:30 03/08/18 06:30 Labs: Laboratory Results - last 24 hr 03/07/18 03/07/18 03/07/18 20:00 20:00 20:00 WBC 12.5 H RBC 2.63 L Hgb 8.7 L Hct 27.3 L MCV 103.8 MCH 33.1 MCHC 31.9 RDW 17.7 H Plt Count 138 MPV 13.6 H Gran % 85.1 H Lymph % (Auto) 10.1 L Ware % (Auto) 3.7 Eos % (Auto) 1.0 L Baso % (Auto) 0.1 Gran # 10.66 H Lymph # (Auto) 1.3 Ware # (Auto) 0.5 Eos # (Auto) 0.1 Baso # (Auto) 0.01 Retic Count PT 15.0 H INR 1.31 APTT 37.7 H pO2 58 H VBG pH 7.36 VBG pCO2 55.0 VBG HCO3 31.1 H VBG Total CO2 32.8 H VBG O2 Sat (Calc) 90.5 H VBG Base Excess 4.2 H VBG Potassium 2.9 L Sodium 141.0 Chloride 106.0 Glucose 93 Lactate 1.4 FiO2 21.0 Potassium Carbon Dioxide Anion Gap BUN Creatinine Est GFR ( Amer) Est GFR (Non-Af Amer) POC Glucose (mg/dL) Random Glucose Calcium Phosphorus Magnesium Iron TIBC % Saturation Ferritin Total Bilirubin AST ALT Alkaline Phosphatase NT-Pro-B Natriuret Pep Total Protein Albumin Globulin Albumin/Globulin Ratio Vitamin B12 Procalcitonin Venous Blood Potassium 2.9 L Alcohol, Quantitative Hepatitis A IgM Ab Hep Bs Antigen Hep B Core IgM Ab Hepatitis C Antibody Blood Type Antibody Screen BBK History Checked 03/07/18 03/07/18 03/08/18 20:00 22:24 01:27 WBC RBC Hgb Hct MCV MCH MCHC RDW Plt Count MPV Gran % Lymph % (Auto) Ware % (Auto) Eos % (Auto) Baso % (Auto) Gran # Lymph # (Auto) Ware # (Auto) Eos # (Auto) Baso # (Auto) Retic Count PT INR APTT pO2 VBG pH VBG pCO2 VBG HCO3 VBG Total CO2 VBG O2 Sat (Calc) VBG Base Excess VBG Potassium Sodium 141 Chloride 104 Glucose Lactate FiO2 Potassium 3.0 L Carbon Dioxide 31 Anion Gap 9 L BUN 7 Creatinine 0.5 L Est GFR ( Amer) > 60 Est GFR (Non-Af Amer) > 60 POC Glucose (mg/dL) Random Glucose 99 Calcium 7.9 L Phosphorus Magnesium Iron TIBC % Saturation Ferritin Total Bilirubin 1.2 AST 98 H ALT 20 Alkaline Phosphatase 214 H D NT-Pro-B Natriuret Pep 557 H Total Protein 8.9 H Albumin 3.1 Globulin 5.8 Albumin/Globulin Ratio 0.5 L Vitamin B12 Procalcitonin Venous Blood Potassium Alcohol, Quantitative Hepatitis A IgM Ab Hep Bs Antigen Hep B Core IgM Ab Hepatitis C Antibody Blood Type O POSITIVE Antibody Screen Negative BBK History Checked Patient has bt 03/08/18 03/08/18 03/08/18 01:27 01:27 06:30 WBC 10.3 RBC 2.53 L Hgb 8.1 L Hct 26.3 L MCV 104.0 MCH 32.0 MCHC 30.8 L RDW 17.7 H Plt Count 125 MPV 12.5 H Gran % 83.0 H Lymph % (Auto) 10.9 L Ware % (Auto) 5.1 Eos % (Auto) 0.9 L Baso % (Auto) 0.1 Gran # 8.57 H Lymph # (Auto) 1.1 L Ware # (Auto) 0.5 Eos # (Auto) 0.1 Baso # (Auto) 0.01 Retic Count 2.45 H PT INR APTT pO2 VBG pH VBG pCO2 VBG HCO3 VBG Total CO2 VBG O2 Sat (Calc) VBG Base Excess VBG Potassium Sodium Chloride Glucose Lactate FiO2 Potassium Carbon Dioxide Anion Gap BUN Creatinine Est GFR ( Amer) Est GFR (Non-Af Amer) POC Glucose (mg/dL) Random Glucose Calcium Phosphorus Magnesium Iron TIBC % Saturation Ferritin 51.4 Total Bilirubin AST ALT Alkaline Phosphatase NT-Pro-B Natriuret Pep Total Protein Albumin Globulin Albumin/Globulin Ratio Vitamin B12 349 Procalcitonin Venous Blood Potassium Alcohol, Quantitative Hepatitis A IgM Ab Negative Hep Bs Antigen Negative Hep B Core IgM Ab Negative Hepatitis C Antibody Negative Blood Type Antibody Screen BBK History Checked 03/08/18 03/08/18 03/08/18 06:30 06:30 06:30 WBC RBC Hgb Hct MCV MCH MCHC RDW Plt Count MPV Gran % Lymph % (Auto) Ware % (Auto) Eos % (Auto) Baso % (Auto) Gran # Lymph # (Auto) Ware # (Auto) Eos # (Auto) Baso # (Auto) Retic Count PT INR APTT pO2 VBG pH VBG pCO2 VBG HCO3 VBG Total CO2 VBG O2 Sat (Calc) VBG Base Excess VBG Potassium Sodium 139 Chloride 104 Glucose Lactate FiO2 Potassium 3.3 L Carbon Dioxide 31 Anion Gap 8 L BUN 7 Creatinine 0.7 Est GFR ( Amer) > 60 Est GFR (Non-Af Amer) > 60 POC Glucose (mg/dL) Random Glucose 107 Calcium 8.0 L Phosphorus 4.1 Magnesium 1.3 L Iron 57 TIBC 235 L % Saturation 24 Ferritin Total Bilirubin 1.3 AST 98 H ALT 25 Alkaline Phosphatase 181 H NT-Pro-B Natriuret Pep Total Protein 8.5 H Albumin 3.1 Globulin 5.4 Albumin/Globulin Ratio 0.6 L Vitamin B12 Procalcitonin 0.35 Venous Blood Potassium Alcohol, Quantitative Hepatitis A IgM Ab Hep Bs Antigen Hep B Core IgM Ab Hepatitis C Antibody Blood Type Antibody Screen BBK History Checked 03/08/18 03/08/18 03/08/18 07:41 08:00 11:12 WBC RBC Hgb Hct MCV MCH MCHC RDW Plt Count MPV Gran % Lymph % (Auto) Ware % (Auto) Eos % (Auto) Baso % (Auto) Gran # Lymph # (Auto) Ware # (Auto) Eos # (Auto) Baso # (Auto) Retic Count PT INR APTT pO2 VBG pH VBG pCO2 VBG HCO3 VBG Total CO2 VBG O2 Sat (Calc) VBG Base Excess VBG Potassium Sodium Chloride Glucose Lactate FiO2 Potassium Carbon Dioxide Anion Gap BUN Creatinine Est GFR ( Amer) Est GFR (Non-Af Amer) POC Glucose (mg/dL) 95 107 Random Glucose Calcium Phosphorus Magnesium Iron TIBC % Saturation Ferritin Total Bilirubin AST ALT Alkaline Phosphatase NT-Pro-B Natriuret Pep Total Protein Albumin Globulin Albumin/Globulin Ratio Vitamin B12 Procalcitonin Venous Blood Potassium Alcohol, Quantitative < 10 Hepatitis A IgM Ab Hep Bs Antigen Hep B Core IgM Ab Hepatitis C Antibody Blood Type Antibody Screen BBK History Checked Assessment & Plan - Assessment and Plan (Free Text) Plan: Perianal abscess Chronic lymphadema Hypokalemia Hx of Perianal abscess Hx of DM Hx of questionable cirrhosis Hx of Hidradentitis Suppurativa Plan: Leg pain likely secondary to worsening chronic lymphadema No evidence of acute infection Will continue to monitor off of antibiotics Consider I&D Follow surgical recommendations Tiffany, PGY-3 <Chucho Guevara - Last Filed: 03/08/18 15:51> Meds - Medications Medications: Current Medications Enoxaparin Sodium (Lovenox) 40 mg SC DAILY [facility]; Protocol Furosemide (Lasix) 40 mg IVP Q12 [id number] Gabapentin (Neurontin) 600 mg PO QID [facility]; Protocol Last Admin: 03/08/18 13:11 Dose: 600 mg Insulin Human Regular (Humulin R Low) 0 units SC ACHS [facility]; Protocol Last Admin: 03/08/18 12:00 Dose: Not Given Oxycodone HCl (Oxycodone Immediate Release Tab) 10 mg PO Q6H PRN PRN Reason: Pain, severe (8-10) Last Admin: 03/08/18 10:14 Dose: 10 mg Pantoprazole Sodium (Protonix Ec Tab) 40 mg PO 0600 [facility] Last Admin: 03/08/18 06:54 Dose: 40 mg Potassium Chloride (K-Dur 20 Meq Er Tab) 20 meq PO BID [facility] Last Admin: 03/08/18 10:12 Dose: 20 meq Spironolactone (Aldactone) 25 mg PO BID [facility] Results - Vital Signs Recent Vital Signs: Last Vital Signs Temp 98.9 F 03/08/18 12:00 Pulse 109 H 03/08/18 12:00 Resp 19 03/08/18 12:00 BP 146/78 03/08/18 12:00 Pulse Ox 94 L 03/08/18 06:00 - Labs Result Diagrams: 03/08/18 06:30 03/08/18 06:30 Labs: Laboratory Results - last 24 hr 03/07/18 03/07/18 03/07/18 20:00 20:00 20:00 WBC 12.5 H RBC 2.63 L Hgb 8.7 L Hct 27.3 L MCV 103.8 MCH 33.1 MCHC 31.9 RDW 17.7 H Plt Count 138 MPV 13.6 H Gran % 85.1 H Lymph % (Auto) 10.1 L Ware % (Auto) 3.7 Eos % (Auto) 1.0 L Baso % (Auto) 0.1 Gran # 10.66 H Lymph # (Auto) 1.3 Ware # (Auto) 0.5 Eos # (Auto) 0.1 Baso # (Auto) 0.01 Retic Count PT 15.0 H INR 1.31 APTT 37.7 H pO2 58 H VBG pH 7.36 VBG pCO2 55.0 VBG HCO3 31.1 H VBG Total CO2 32.8 H VBG O2 Sat (Calc) 90.5 H VBG Base Excess 4.2 H VBG Potassium 2.9 L Sodium 141.0 Chloride 106.0 Glucose 93 Lactate 1.4 FiO2 21.0 Potassium Carbon Dioxide Anion Gap BUN Creatinine Est GFR ( Amer) Est GFR (Non-Af Amer) POC Glucose (mg/dL) Random Glucose Calcium Phosphorus Magnesium Iron TIBC % Saturation Ferritin Total Bilirubin AST ALT Alkaline Phosphatase NT-Pro-B Natriuret Pep Total Protein Albumin Globulin Albumin/Globulin Ratio Vitamin B12 Procalcitonin Venous Blood Potassium 2.9 L Alcohol, Quantitative Hepatitis A IgM Ab Hep Bs Antigen Hep B Core IgM Ab Hepatitis C Antibody Blood Type Antibody Screen BBK History Checked 03/07/18 03/07/18 03/08/18 20:00 22:24 01:27 WBC RBC Hgb Hct MCV MCH MCHC RDW Plt Count MPV Gran % Lymph % (Auto) Ware % (Auto) Eos % (Auto) Baso % (Auto) Gran # Lymph # (Auto) Ware # (Auto) Eos # (Auto) Baso # (Auto) Retic Count PT INR APTT pO2 VBG pH VBG pCO2 VBG HCO3 VBG Total CO2 VBG O2 Sat (Calc) VBG Base Excess VBG Potassium Sodium 141 Chloride 104 Glucose Lactate FiO2 Potassium 3.0 L Carbon Dioxide 31 Anion Gap 9 L BUN 7 Creatinine 0.5 L Est GFR ( Amer) > 60 Est GFR (Non-Af Amer) > 60 POC Glucose (mg/dL) Random Glucose 99 Calcium 7.9 L Phosphorus Magnesium Iron TIBC % Saturation Ferritin Total Bilirubin 1.2 AST 98 H ALT 20 Alkaline Phosphatase 214 H D NT-Pro-B Natriuret Pep 557 H Total Protein 8.9 H Albumin 3.1 Globulin 5.8 Albumin/Globulin Ratio 0.5 L Vitamin B12 Procalcitonin Venous Blood Potassium Alcohol, Quantitative Hepatitis A IgM Ab Hep Bs Antigen Hep B Core IgM Ab Hepatitis C Antibody Blood Type O POSITIVE Antibody Screen Negative BBK History Checked Patient has bt 03/08/18 03/08/18 03/08/18 01:27 01:27 06:30 WBC 10.3 RBC 2.53 L Hgb 8.1 L Hct 26.3 L MCV 104.0 MCH 32.0 MCHC 30.8 L RDW 17.7 H Plt Count 125 MPV 12.5 H Gran % 83.0 H Lymph % (Auto) 10.9 L Ware % (Auto) 5.1 Eos % (Auto) 0.9 L Baso % (Auto) 0.1 Gran # 8.57 H Lymph # (Auto) 1.1 L Ware # (Auto) 0.5 Eos # (Auto) 0.1 Baso # (Auto) 0.01 Retic Count 2.45 H PT INR APTT pO2 VBG pH VBG pCO2 VBG HCO3 VBG Total CO2 VBG O2 Sat (Calc) VBG Base Excess VBG Potassium Sodium Chloride Glucose Lactate FiO2 Potassium Carbon Dioxide Anion Gap BUN Creatinine Est GFR ( Amer) Est GFR (Non-Af Amer) POC Glucose (mg/dL) Random Glucose Calcium Phosphorus Magnesium Iron TIBC % Saturation Ferritin 51.4 Total Bilirubin AST ALT Alkaline Phosphatase NT-Pro-B Natriuret Pep Total Protein Albumin Globulin Albumin/Globulin Ratio Vitamin B12 349 Procalcitonin Venous Blood Potassium Alcohol, Quantitative Hepatitis A IgM Ab Negative Hep Bs Antigen Negative Hep B Core IgM Ab Negative Hepatitis C Antibody Negative Blood Type Antibody Screen BBK History Checked 03/08/18 03/08/18 03/08/18 06:30 06:30 06:30 WBC RBC Hgb Hct MCV MCH MCHC RDW Plt Count MPV Gran % Lymph % (Auto) Ware % (Auto) Eos % (Auto) Baso % (Auto) Gran # Lymph # (Auto) Ware # (Auto) Eos # (Auto) Baso # (Auto) Retic Count PT INR APTT pO2 VBG pH VBG pCO2 VBG HCO3 VBG Total CO2 VBG O2 Sat (Calc) VBG Base Excess VBG Potassium Sodium 139 Chloride 104 Glucose Lactate FiO2 Potassium 3.3 L Carbon Dioxide 31 Anion Gap 8 L BUN 7 Creatinine 0.7 Est GFR ( Amer) > 60 Est GFR (Non-Af Amer) > 60 POC Glucose (mg/dL) Random Glucose 107 Calcium 8.0 L Phosphorus 4.1 Magnesium 1.3 L Iron 57 TIBC 235 L % Saturation 24 Ferritin Total Bilirubin 1.3 AST 98 H ALT 25 Alkaline Phosphatase 181 H NT-Pro-B Natriuret Pep Total Protein 8.5 H Albumin 3.1 Globulin 5.4 Albumin/Globulin Ratio 0.6 L Vitamin B12 Procalcitonin 0.35 Venous Blood Potassium Alcohol, Quantitative Hepatitis A IgM Ab Hep Bs Antigen Hep B Core IgM Ab Hepatitis C Antibody Blood Type Antibody Screen BBK History Checked 03/08/18 03/08/18 03/08/18 07:41 08:00 11:12 WBC RBC Hgb Hct MCV MCH MCHC RDW Plt Count MPV Gran % Lymph % (Auto) Ware % (Auto) Eos % (Auto) Baso % (Auto) Gran # Lymph # (Auto) Ware # (Auto) Eos # (Auto) Baso # (Auto) Retic Count PT INR APTT pO2 VBG pH VBG pCO2 VBG HCO3 VBG Total CO2 VBG O2 Sat (Calc) VBG Base Excess VBG Potassium Sodium Chloride Glucose Lactate FiO2 Potassium Carbon Dioxide Anion Gap BUN Creatinine Est GFR ( Amer) Est GFR (Non-Af Amer) POC Glucose (mg/dL) 95 107 Random Glucose Calcium Phosphorus Magnesium Iron TIBC % Saturation Ferritin Total Bilirubin AST ALT Alkaline Phosphatase NT-Pro-B Natriuret Pep Total Protein Albumin Globulin Albumin/Globulin Ratio Vitamin B12 Procalcitonin Venous Blood Potassium Alcohol, Quantitative < 10 Hepatitis A IgM Ab Hep Bs Antigen Hep B Core IgM Ab Hepatitis C Antibody Blood Type Antibody Screen BBK History Checked Assessment & Plan - Assessment and Plan (Free Text) Plan: Infectious diseases Attending Physician Attestation Patient seen and examined, discussed with medical billing coordinator. I have reviewed the patient's history of present illness, past medical, social, personal and family histories, pertinent physical exam findings, course so far in this hospital admission, pertinent laboratory and imaging results. I agree with the above findings, assessment and plan. In addition, monitor off antibiotics - patient with bilateral lower extremity swelling probable chronic lymphedema associated with liver cirrhosis, no DVT, no cellulitis.
--- NOTE | 2018-03-08 20:22 | CARD ---
APPROVED REPORT Date of service: 03/07/2018 EKG Measurement Heart [id number] <Conclusion> Sinus tachycardia Otherwise normal ECG
[2018-03-09 00:35] LABS: PH,URINE 5.5 (4.7-8.0); URINE BILIRUBIN NEGATIVE (NEGATIVE); URINE BLOOD MODERATE (NEGATIVE); URINE GLUCOSE (UA) NEGATIVE (NEGATIVE); URINE LEUKOCYTE ESTERASE NEGATIVE Leu/uL (NEGATIVE); URINE PROTEIN NEGATIVE mg/dL (<30 mg/dL); URINE UROBILINOGEN 0.2 E.U./dL (<1 E.U./dL)
[2018-03-09] MEDS: oxyCODONE 10 mg Immediate Release Tab PO PRN (00:36)
[2018-03-09 00:52] LABS: BARBITURATES, UR NEGATIVE (NEGATIVE); BENZODIAZEPINES, UR NEGATIVE (NEGATIVE); OPIATES, UR POSITIVE (NEGATIVE); PHENCYCLIDINE, UR NEGATIVE (NEGATIVE)
[2018-03-09 00:56] LABS: URINE APPEARANCE CLEAR (CLEAR); URINE BACTERIA FEW /hpf; URINE COLOR YELLOW (YELLOW); URINE EPITHELIAL CELLS 0 - 2 /hpf (0-5); URINE WBC 0 - 2 /hpf (0-6)
[2018-03-09] MEDS: Pantoprazole 40 mg EC Tab PO SCH (05:06)
[2018-03-09] MEDS: oxyCODONE 5 mg Immediate Release Tab PO PRN ×3 (06:38→20:15)
[2018-03-09 07:50] LABS: BASO # 0.01 K/mm3 (0.0-2.0); BASO % 0.1 % (0.0-3.0); EOS # 0.1 (0.0-0.7); GRAN # 7.13 (1.4-6.5); GRAN % 80.5 % (50.0-68.0); HEMOGLOBIN 8.6 g/dL (12.0-16.0); LYMPH # 1.2 (1.2-3.4); LYMPH % 13.4 % (22.0-35.0); MEAN CELL VOLUME 103.7 fl (80.0-105.0); MEAN CORPUSCULAR HEMOGLOBIN 31.6 pg (25.0-35.0); MEAN CORPUSCULAR HGB CONC 30.5 g/dl (31.0-37.0); MONO # 0.4 (0.1-0.6); PLATELET COUNT 126 10^3/uL (120.0-450.0); RBC 2.72 10^6/uL (3.5-6.1); RED CELL DISTRIBUTION WIDTH 17.5 % (11.5-14.5); WHITE BLOOD COUNT 8.9 10^3/uL (4.5-11.0)
[2018-03-09 08:07] LABS: ALB/GLOB RATIO 0.6 (1.1-1.8); ALT/SGPT 23 U/L (7-56); AST/SGOT 84 U/L (14-36); BLOOD UREA NITROGEN 8 mg/dL (7-21); CALCIUM 8.3 mg/dL (8.4-10.5); GFR NON-AFRICAN AMERICAN > 60
[2018-03-09] MEDS: Insulin Reg-LOW-Coverage SC SCH ×4 (08:11→21:50)
[2018-03-09] MEDS ORDERED: Albumin Human 25% (12.5 gm/50 ml) IV ONE (08:51)
[2018-03-09] MEDS ORDERED: Magnesium Sulfate 2 gm/50 ml 2 GM/50 ML BAG IVPB ONE (10:46)
[2018-03-09] MEDS: Potassium Chloride 20 mEq ER Tab PO SCH ×2 (11:04→17:29)
[2018-03-09] MEDS: Enoxaparin 40 mg Syringe SC SCH (11:05)
--- NOTE | 2018-03-09 11:11 | CP.PCM.PN ---
<Luzma Luke - Last Filed: 03/09/18 15:20> Subjective - Date & Time of Evaluation Date of Evaluation: 03/09/18 Time of Evaluation: 11:11 - Subjective Subjective: PGY1 Progress Note for Dr. Keith Patient was seen and evaluated at bedside this morning. Patient states her bilateral lower extremity swelling has improved. Patient denies chest pain, SOB, headache, nausea, vomiting, fever, chills, and/or leg pain. Patient otherwise has no complaints. Objective - Vital Signs/Intake and Output Vital Signs (last 24 hours): Temp Pulse Resp BP Pulse Ox 98.4 F 105 H 20 119/76 94 L 03/09/18 06:00 03/09/18 06:00 03/09/18 06:00 03/09/18 11:05 03/09/18 06:00 Intake and Output: 03/09/18 03/09/18 06:59 18:59 Intake Total 960 Output Total 1450 Balance -490 - Medications Medications: Current Medications Enoxaparin Sodium (Lovenox) 40 mg SC DAILY [facility]; Protocol Last Admin: 03/09/18 11:05 Dose: 40 mg Furosemide (Lasix) 40 mg IVP Q12 [facility] Last Admin: 03/09/18 11:05 Dose: 40 mg Gabapentin (Neurontin) 600 mg PO QID [facility]; Protocol Last Admin: 03/09/18 11:04 Dose: 600 mg Magnesium Sulfate (Magnesium Sulfate 2 Gm/50 Ml Water) 2 gm in 50 mls @ 50 mls/hr IVPB ONCE ONE Stop: 03/09/18 11:45 Insulin Human Regular (Humulin R Low) 0 units SC ACHS [facility]; Protocol Last Admin: 03/09/18 08:11 Dose: Not Given Lorazepam (Ativan) 1 mg IVP Q6H PRN; Protocol PRN Reason: Anxiety Oxycodone HCl (Oxycodone Immediate Release Tab) 10 mg PO Q6H PRN PRN Reason: Pain, severe (8-10) Last Admin: 03/09/18 06:38 Dose: 10 mg Pantoprazole Sodium (Protonix Ec Tab) 40 mg PO 0600 [facility] Last Admin: 03/09/18 05:06 Dose: 40 mg Potassium Chloride (K-Dur 20 Meq Er Tab) 20 meq PO BID [facility] Last Admin: 03/09/18 11:04 Dose: 20 meq Spironolactone (Aldactone) 50 mg PO BID [facility] Last Admin: 03/09/18 11:04 Dose: 50 mg - Labs Labs: 03/09/18 07:00 03/09/18 07:00 PT 15.0 SECONDS (9.4-12.5) H 03/07/18 20:00 INR 1.31 03/07/18 20:00 APTT 37.7 Seconds (25.1-36.5) H 03/07/18 20:00 - Additional Findings Additional findings: - Constitutional Appears: Non-toxic, No Acute Distress - Head Exam Head Exam: ATRAUMATIC, NORMAL INSPECTION, NORMOCEPHALIC - Eye Exam Eye Exam: EOMI, Normal appearance - Respiratory Exam Respiratory Exam: Decreased Breath Sounds, NORMAL BREATHING PATTERN - Cardiovascular Exam Cardiovascular Exam: RRR, +S1, +S2 - GI/Abdominal Exam GI & Abdominal Exam: Normal Bowel Sounds, Soft. absent: Tenderness - Rectal Exam Additional comments: Deferred. Bandaged by surgical team - Extremities Exam Extremities exam: Negative for: pedal edema (+2 edema b/l), no tenderness to palpation in bilateral lower extremities. - Neurological Exam Neurological exam: Alert, CN II-XII Intact, Oriented x3 - Psychiatric Exam Psychiatric exam: Normal Affect, Normal Mood - Skin Skin Exam: Intact, Normal Color, Warm Assessment and Plan - Assessment and Plan (Free Text) Assessment: 42 year old Female with PMH of DM2 w/ neuropathy, Cirrhosis 2/2 EtOH Abuse, Hidradenitis Suppurativa, presented to [facility] on [facility] with a chief complaint of BL edema/erythema x2 wks. Plan: Bilateral Lower Extremity Erythema and Edema - Likely secondary to worsening chronic lymphedema / rule-out CHF vs DVT - DVT ruled out: LE duplex obtained and showed no evidence of DVT bilaterally - CHF work-up: ECHO obtained, AUO=109, CT Chest: No pleural effusion on lower lung windows - BL Tib/Fib X-Ray shows no acute pathology - Discontinued: Merrem 500 Q12 - Discontinued: Vanco 1.5 Q12 - Lasix increased to 40 IVP Q12 - BCX pending - ID Consulted (Dr. Devries); recommendations appreciated - No evidence of acute infection, monitor off antibiotics - Continue Oxycodone 10mg Q6H PRN for severe pain - Continue home med: neurontin Normocytic Anemia likely due to chronic disease - MCV normocytic - Anemia studies obtained Fe/Ferritin/TIBC/B12 TIBC low, Fe Ferritin B12 within normal limits Rectal Abscess / Pilonidal cyst - Cellulitic changes appreciated on CT A+P - 2x1cm abscess seen on exam as per ED documentation - Surgery consulted, recommendations appreciated -medical management : lasix , spinolactone -Dressing change PRN -Out patient elective surgery for pilonidal cyst History of Cirrhosis - Cirrhotic liver w/ ascities on CTAP - PT/PTT elevated; INR wnl; Albumin decreased; mild protein gap appreciated - PLT normal, AST/Alk Phos elevated - Start Aldactone 25 Gamma Gap - 5.8; Elevated - Given Hx will r/o hep/HIV - However most likely due to chronic inflammation from Hidradenitis Suppurativa - Hepatitis panel pending - HIV pending Hx DM - ISS Low ACHS - Accuchecks ACHS - Hypoglycemic protocol Hidradenitis Suppurativa - Wound Care - Chlorhexadine - Bathe daily, keep affected area clean. Hypokalemia - Replete as needed - Aldactone increased to 50mg PO BID - Continue Kdur 20meq BID PPX: - DVT: Lovenox - GI: Protonix Patient seen and case discussed in detail with Dr Inna Luke PGY1 <Lamont Keith - Last Filed: 03/09/18 15:47> Objective - Vital Signs/Intake and Output Vital Signs (last 24 hours): Temp Pulse Resp BP Pulse Ox 99.4 F 99 H 20 131/84 94 L 03/09/18 12:00 03/09/18 12:00 03/09/18 12:00 03/09/18 12:00 03/09/18 06:00 Intake and Output: 03/09/18 03/09/18 06:59 18:59 Intake Total 960 Output Total 1450 Balance -490 - Medications Medications: Current Medications Enoxaparin Sodium (Lovenox) 40 mg SC DAILY [facility]; Protocol Last Admin: 03/09/18 11:05 Dose: 40 mg Folic Acid (Folic Acid) 1 mg PO DAILY [facility] Last Admin: 03/09/18 11:59 Dose: 1 mg Furosemide (Lasix) 40 mg IVP Q12 [facility] Last Admin: 03/09/18 11:05 Dose: 40 mg Gabapentin (Neurontin) 600 mg PO QID [facility]; Protocol Last Admin: 03/09/18 13:26 Dose: 600 mg Insulin Human Regular (Humulin R Low) 0 units SC ACHS [facility]; Protocol Last Admin: 03/09/18 12:00 Dose: Not Given Lorazepam (Ativan) 1 mg IVP Q6H PRN; Protocol PRN Reason: Anxiety Multivitamins/Minerals (Therapeutic-M Tab) 1 tab PO 0800 [facility] Oxycodone HCl (Oxycodone Immediate Release Tab) 10 mg PO Q6H PRN PRN Reason: Pain, severe (8-10) Last Admin: 03/09/18 13:25 Dose: 10 mg Pantoprazole Sodium (Protonix Ec Tab) 40 mg PO 0600 [facility] Last Admin: 03/09/18 05:06 Dose: 40 mg Potassium Chloride (K-Dur 20 Meq Er Tab) 20 meq PO BID [facility] Last Admin: 03/09/18 11:04 Dose: 20 meq Spironolactone (Aldactone) 50 mg PO BID [facility] Last Admin: 03/09/18 11:04 Dose: 50 mg Thiamine HCl (Vitamin B1 Tab) 100 mg PO DAILY [facility] Last Admin: 03/09/18 11:59 Dose: 100 mg - Labs Labs: 03/09/18 07:00 03/09/18 07:00 PT 15.0 SECONDS (9.4-12.5) H 03/07/18 20:00 INR 1.31 03/07/18 20:00 APTT 37.7 Seconds (25.1-36.5) H 03/07/18 20:00 Attending/Attestation - Attestation I have personally seen and examined this patient.: Yes I have fully participated in the care of the patient.: Yes I have reviewed all pertinent clinical information, including history, physical exam and plan: Yes Notes (Text): 03/09/18 15:41 Attending note; Patient seen and examined with resident. Patient is alert and awake. Leg swelling is improving. Denies any fevers, chills. Denies any abdominal pain, nausea, vomiting. Erythema and redness improved. Denies any rectal bleeding. Complaining of difficulty ambulating. Patient is a 42-year-old female with a history of alcohol abuse, alcoholic cirrhosis, gastric bypass surgery, obesity is admitted with bilateral lower extremity swelling and gait instability. 1. Bilateral lower extremity swelling; secondary to advanced liver disease. Started on IV Lasix and Aldactone. Leg swelling is improving. 2. Advanced alcoholic cirrhosis; patient had ascites fluid tap recently. CT abdomen and pelvis showed advanced cirrhosis, splenomegaly and minimal ascites. Abdominal wall edema noted. 3. History of pilonidal cyst; surgery evaluation appreciated. Outpatient surgery follow-up recommended. 4. History of diabetes; diet controlled. Hemoglobin A1c ordered. Dietitian evaluation requested. 5. Deconditioning; patient uses cane and walker at home. Patient is visiting from [place]. Will discuss with bottle caser for discharge planning. Physical therapy evaluation requested.
--- NOTE | 2018-03-09 20:01 | CARD ---
APPROVED REPORT Date of service: 03/09/2018 EXAM: Two-dimensional and M-mode echocardiogram with Doppler and color Doppler. INDICATION LV Function: 2D DIMENSIONS Left Atrium (2D)4.9 (1.6-4.0cm)IVSd1.0 (0.7-1.1cm) Aortic Root (2D)3.2 (2.0-3.7cm)LVDd5.4 (3.9-5.9cm) PWd1.1 (0.7-1.1cm)LVDs3.1 (2.5-4.0cm) FS (%) 43.3 %LVEF (%)73.9 (>50%) M-Mode DIMENSIONS Aortic Cusp Exc.2.20 (1.5-2.0cm) Mitral Valve MV E Tuvegjfa288.0cm/sMV A Gupegnvn679.0cm/sE/A ratio1.2 TDI Lateral E' Peak V13.60cm/sMedial E' Peak V7.12cm/sE/Lateral E'11.2 E/Medial E'21.3 Pulmonary Valve PV Peak Obtxowbr93.4cm/sPV Peak Grad.4mmHg Tricuspid Valve TR Peak [id number]/sRAP [id number] Peak Gr.30mmHg [id number] LEFT VENTRICLE The left ventricle is normal size. There is normal left ventricular wall thickness. The left ventricular function is normal. The left ventricular ejection fraction is within the normal range. There is normal LV segmental wall motion. The left ventricular diastolic function is normal. RIGHT VENTRICLE The right ventricle is normal size. There is normal right ventricular wall thickness. The right ventricular systolic function is normal. ATRIA The left atrium is moderately dilated. The right atrium is mildly dilated. AORTIC VALVE The aortic valve is not well visualized. No aortic regurgitation is present. There is no aortic valvular stenosis. MITRAL VALVE The mitral valve is normal in structure. Mitral regurgitation is mild to moderate. There is no mitral valve stenosis. TRICUSPID VALVE The tricuspid valve is normal in structure. There is mild to moderate tricuspid regurgitation. PULMONIC VALVE The pulmonary valve is normal in structure. There is trace pulmonic valvular regurgitation. GREAT VESSELS The aortic root is normal in size. The IVC is normal in size and collapses >50% with inspiration. PERICARDIAL EFFUSION There is no pericardial effusion. <Conclusion> There is normal left ventricular wall thickness. The left ventricular function is normal. The left ventricular ejection fraction is within the normal range. There is normal LV segmental wall motion. The left ventricular diastolic function is normal. Mitral regurgitation is mild to moderate. There is mild to moderate tricuspid regurgitation.
--- NOTE | 2018-03-09 21:46 | PN ---
DATE: 03/09/2018 SUBJECTIVE: The patient is seen earlier today, in room 272, bed 2. No fevers, no chills. She is awake and alert. She is weak. PHYSICAL EXAMINATION: VITAL SIGNS: Temperature is 99, blood pressure is 130/80, respiratory rate of 18, and heart rate of 103. HEENT: Unremarkable. NECK: Supple. LUNGS: Decreased breath sounds. HEART: Normal S1, S2. ABDOMEN: Soft and nontender. LABORATORY DATA: Examination reveals a white count of 8.9 and hemoglobin of 8. Chemistries are noted. Urinalysis is noted. Procalcitonin is 0.35. Serologies reviewed. Microbiology reveals blood cultures are negative. Review of orders reveals the patient to be on no antibiotics. ASSESSMENT AND PLAN: A 42-year-old female seen earlier today with history of diabetes and history of alcoholic liver disease, hidradenitis suppurativa, and currently with perianal abscess, chronic lymphedema, hypokalemia, history of perianal abscess. No evidence of acute infection, off antibiotics. Afebrile with normal white count. We will follow closely with you. Laureano Devries MD
[2018-03-10] MEDS: oxyCODONE 5 mg Immediate Release Tab PO PRN ×4 (02:26→21:25)
[2018-03-10] MEDS: Pantoprazole 40 mg EC Tab PO SCH (05:46)
--- NOTE | 2018-03-10 07:44 | CP.PCM.PN ---
Subjective - Date & Time of Evaluation Date of Evaluation: 03/08/18 Time of Evaluation: 09:30 - Subjective Subjective: Surgery Progress note- Dr. Spears Patient seen and examined at bedside. Discussed in detail with Dr. Spears and patient about active draining from the trish-rectal abscess. Patient is uncomfortable in the seated position, however is able to pass gas and have BM. Tolerating regular diet. Objective - Vital Signs/Intake and Output Vital Signs (last 24 hours): Temp Pulse Resp BP Pulse Ox 98.7 F 104 H 20 126/80 98 03/10/18 06:00 03/10/18 06:00 03/10/18 06:00 03/10/18 06:00 03/10/18 06:00 Intake and Output: 03/10/18 03/10/18 06:59 18:59 Intake Total 1160 Output Total 1600 Balance -440 - Medications Medications: Current Medications Enoxaparin Sodium (Lovenox) 40 mg SC DAILY [facility]; Protocol Last Admin: 03/09/18 11:05 Dose: 40 mg Folic Acid (Folic Acid) 1 mg PO DAILY [facility] Last Admin: 03/09/18 11:59 Dose: 1 mg Furosemide (Lasix) 40 mg IVP Q12 [facility] Last Admin: 03/09/18 21:45 Dose: 40 mg Gabapentin (Neurontin) 600 mg PO QID [facility]; Protocol Last Admin: 03/09/18 21:45 Dose: 600 mg Insulin Human Regular (Humulin R Low) 0 units SC ACHS [facility]; Protocol Last Admin: 03/09/18 21:50 Dose: Not Given Lorazepam (Ativan) 1 mg IVP Q6H PRN; Protocol PRN Reason: Anxiety Multivitamins/Minerals (Therapeutic-M Tab) 1 tab PO 0800 [facility] Oxycodone HCl (Oxycodone Immediate Release Tab) 10 mg PO Q6H PRN PRN Reason: Pain, severe (8-10) Last Admin: 03/10/18 02:26 Dose: 10 mg Pantoprazole Sodium (Protonix Ec Tab) 40 mg PO 0600 [facility] Last Admin: 03/10/18 05:46 Dose: 40 mg Potassium Chloride (K-Dur 20 Meq Er Tab) 20 meq PO BID [facility] Last Admin: 03/09/18 17:29 Dose: 20 meq Spironolactone (Aldactone) 50 mg PO BID [facility] Last Admin: 03/09/18 17:29 Dose: 50 mg Thiamine HCl (Vitamin B1 Tab) 100 mg PO DAILY [facility] Last Admin: 03/09/18 11:59 Dose: 100 mg - Labs Labs: 03/09/18 07:00 03/09/18 07:00 PT 15.0 SECONDS (9.4-12.5) H 03/07/18 20:00 INR 1.31 03/07/18 20:00 APTT 37.7 Seconds (25.1-36.5) H 03/07/18 20:00 - Constitutional Appears: Non-toxic, No Acute Distress, Other (morbidly obese) - Head Exam Head Exam: ATRAUMATIC - Eye Exam Eye Exam: EOMI. absent: Scleral icterus - ENT Exam ENT Exam: Mucous Membranes Moist - Respiratory Exam Respiratory Exam: NORMAL BREATHING PATTERN. absent: Accessory Muscle Use, R espiratory Distress - Cardiovascular Exam Cardiovascular Exam: REGULAR RHYTHM. absent: Bradycardia, Tachycardia - GI/Abdominal Exam GI & Abdominal Exam: Soft. absent: Firm, Guarding, Rigid, Tenderness - Rectal Exam Additional comments: No appreciation on rectal exam of communication between drainage site and rectum good tone, no octaviano blood - Extremities Exam Extremities Exam: absent: Calf Tenderness - Neurological Exam Neurological Exam: Alert, Awake, Oriented x3 - Psychiatric Exam Psychiatric exam: Normal Affect - Skin Skin Exam: Intact, Warm Assessment and Plan - Assessment and Plan (Free Text) Assessment: 42F admitted for b/l lower extremity cellulitis w/ trish-anal abscess; actively draining Plan: - recommend ambulation - warm compresses to the affected area - elevate legs - c/w abx - encourage OOB and ambulation as tolerated - recommend stopping all AC and blood thinners - no acute surgical intervention at this time - d/[facility]
[2018-03-10 08:03] LABS: BASO # 0.01 K/mm3 (0.0-2.0); BASO % 0.1 % (0.0-3.0); EOS # 0.1 (0.0-0.7); EOS % 1.1 % (1.5-5.0); GRAN # 6.9 (1.4-6.5); GRAN % 79.1 % (50.0-68.0); HEMOGLOBIN 8.3 g/dL (12.0-16.0); LYMPH # 1.3 (1.2-3.4); LYMPH % 14.3 % (22.0-35.0); MEAN CELL VOLUME 103.8 fl (80.0-105.0); MEAN CORPUSCULAR HEMOGLOBIN 31.8 pg (25.0-35.0); MEAN CORPUSCULAR HGB CONC 30.6 g/dl (31.0-37.0); MEAN PLATELET VOLUME 13.4 fl (7.0-11.0); MONO # 0.5 (0.1-0.6); MONO % 5.4 % (1.0-6.0); RBC 2.61 10^6/uL (3.5-6.1); RED CELL DISTRIBUTION WIDTH 17.4 % (11.5-14.5); WHITE BLOOD COUNT 8.7 10^3/uL (4.5-11.0)
[2018-03-10 08:20] LABS: ALB/GLOB RATIO 0.6 (1.1-1.8); ALBUMIN 3.1 g/dL (3.0-4.8); ALT/SGPT 20 U/L (7-56); AST/SGOT 77 U/L (14-36); BLOOD UREA NITROGEN 6 mg/dL (7-21); CALCIUM 8.3 mg/dL (8.4-10.5); GFR NON-AFRICAN AMERICAN > 60
--- NOTE | 2018-03-10 08:23 | CP.PCM.PN ---
<Luzma Luke - Last Filed: 03/10/18 10:33> Subjective - Date & Time of Evaluation Date of Evaluation: 03/10/18 Time of Evaluation: 08:22 - Subjective Subjective: PGY1 Medicine Progress Note for Dr. Keith Patient was seen and evaluated at bedside. No complaints overnight. Patient tolerating diet well. Patient currently denies chest pain, palpitations, shortness of breath, abdominal pain, dysuria, back pain, dizziness headaches, confusion, fever and/or chills. Patient states the swelling continues to decrease, but still admits to mild pain in lower extremities bilaterally. Objective - Vital Signs/Intake and Output Vital Signs (last 24 hours): Temp Pulse Resp BP Pulse Ox 98.7 F 104 H 20 126/80 98 03/10/18 06:00 03/10/18 06:00 03/10/18 06:00 03/10/18 06:00 03/10/18 06:00 Intake and Output: 03/10/18 03/10/18 06:59 18:59 Intake Total 1160 Output Total 1600 Balance -440 - Medications Medications: Current Medications Enoxaparin Sodium (Lovenox) 40 mg SC DAILY [facility]; Protocol Last Admin: 03/09/18 11:05 Dose: 40 mg Folic Acid (Folic Acid) 1 mg PO DAILY [facility] Last Admin: 03/09/18 11:59 Dose: 1 mg Furosemide (Lasix) 40 mg IVP Q12 [facility] Last Admin: 03/09/18 21:45 Dose: 40 mg Gabapentin (Neurontin) 600 mg PO QID [facility]; Protocol Last Admin: 03/09/18 21:45 Dose: 600 mg Insulin Human Regular (Humulin R Low) 0 units SC ACHS [facility]; Protocol Last Admin: 03/09/18 21:50 Dose: Not Given Lorazepam (Ativan) 1 mg IVP Q6H PRN; Protocol PRN Reason: Anxiety Multivitamins/Minerals (Therapeutic-M Tab) 1 tab PO 0800 [facility] Oxycodone HCl (Oxycodone Immediate Release Tab) 10 mg PO Q6H PRN PRN Reason: Pain, severe (8-10) Last Admin: 03/10/18 02:26 Dose: 10 mg Pantoprazole Sodium (Protonix Ec Tab) 40 mg PO 0600 [facility] Last Admin: 03/10/18 05:46 Dose: 40 mg Potassium Chloride (K-Dur 20 Meq Er Tab) 20 meq PO BID [facility] Last Admin: 03/09/18 17:29 Dose: 20 meq Spironolactone (Aldactone) 50 mg PO BID [facility] Last Admin: 03/09/18 17:29 Dose: 50 mg Thiamine HCl (Vitamin B1 Tab) 100 mg PO DAILY [facility] Last Admin: 03/09/18 11:59 Dose: 100 mg - Labs Labs: 03/09/18 07:00 03/10/18 07:30 PT 15.0 SECONDS (9.4-12.5) H 03/07/18 20:00 INR 1.31 03/07/18 20:00 APTT 37.7 Seconds (25.1-36.5) H 03/07/18 20:00 - Additional Findings Additional findings: - Constitutional Appears: Non-toxic, No Acute Distress - Head Exam Head Exam: ATRAUMATIC, NORMAL INSPECTION, NORMOCEPHALIC - Eye Exam Eye Exam: EOMI, Normal appearance - Respiratory Exam Respiratory Exam: Decreased Breath Sounds, NORMAL BREATHING PATTERN - Cardiovascular Exam Cardiovascular Exam: Tachycardia, +S1, +S2 - GI/Abdominal Exam GI & Abdominal Exam: Normal Bowel Sounds, Soft. absent: Tenderness - Rectal Exam Additional comments: Deferred. Bandaged by surgical team - Extremities Exam Extremities exam: Negative for: pedal edema (+2 edema b/l), no tenderness to palpation in bilateral lower extremities. - Neurological Exam Neurological exam: Alert, CN II-XII Intact, Oriented x3 - Psychiatric Exam Psychiatric exam: Normal Affect, Normal Mood - Skin Skin Exam: Intact, Normal Color, Warm Assessment and Plan - Assessment and Plan (Free Text) Assessment: 42 year old Female with PMH of DM2 w/ neuropathy, Cirrhosis 2/2 EtOH Abuse, Hidradenitis Suppurativa, presented to [facility] on 03/08 with a chief complaint of BL edema/erythema x2 wks. Plan: Bilateral Lower Extremity Erythema and Edema - Likely secondary to worsening chronic lymphedema / rule-out CHF vs DVT - DVT ruled out: LE duplex obtained and showed no evidence of DVT bilaterally - CHF work-up: ECHO obtained, WFX=[id number], CT Chest: No pleural effusion on lower lung windows - BL Tib/Fib X-Ray shows no acute pathology - Discontinued: Merrem 500 Q12 - Discontinued: Vanco 1.5 Q12 - Lasix increased to 40 IVP Q12 - BCX: negative x48 hour - No leukocytosis - ID Consulted (Dr. Devries); recommendations appreciated - No evidence of acute infection, monitor off antibiotics - Continue Oxycodone 10mg Q6H PRN for severe pain - Continue home med: neurontin Normocytic Anemia likely due to chronic disease - MCV normocytic - Anemia studies obtained Fe/Ferritin/TIBC/B12 TIBC low, Fe Ferritin B12 within normal limits Rectal Abscess / Pilonidal cyst - Cellulitic changes appreciated on CT A+P - 2x1cm abscess seen on exam as per ED documentation - Surgery consulted, recommendations appreciated -Medical management: lasix , spinolactone -Dressing change PRN -Out patient elective surgery for pilonidal cyst History of Cirrhosis - Cirrhotic liver w/ ascities on CTAP - PLT normal, AST/Alk Phos elevated - Aldactone 50mg BID Gamma Gap - 5.8; Elevated - HIV negative - Hepatitis C panel negative - Most likely due to chronic inflammation from Hidradenitis Suppurativa Hx DM - ISS Low ACHS - Accuchecks ACHS - Hypoglycemic protocol Hidradenitis Suppurativa - Wound Care - Chlorhexadine - Bathe daily, keep affected area clean. Hypokalemia - Replete as needed - Aldactone increased to 50mg PO BID - Continue Kdur 20meq BID PPX: - DVT: Lovenox - GI: Protonix Patient seen and case discussed in detail with Dr Inna Luke PGY1 <Lamont Keith - Last Filed: 03/10/18 13:30> Objective - Vital Signs/Intake and Output Vital Signs (last 24 hours): Temp Pulse Resp BP Pulse Ox 98.3 F 100 H 20 126/85 98 03/10/18 12:00 03/10/18 12:00 03/10/18 12:00 03/10/18 12:00 03/10/18 06:00 Intake and Output: 03/10/18 03/10/18 06:59 18:59 Intake Total 1160 Output Total 1600 Balance -440 - Medications Medications: Current Medications Enoxaparin Sodium (Lovenox) 40 mg SC DAILY [facility]; Protocol Last Admin: 03/10/18 09:01 Dose: 40 mg Folic Acid (Folic Acid) 1 mg PO DAILY [facility] Last Admin: 03/10/18 09:00 Dose: 1 mg Furosemide (Lasix) 40 mg IVP Q12 [facility] Last Admin: 03/10/18 09:01 Dose: 40 mg Gabapentin (Neurontin) 600 mg PO QID [facility]; Protocol Last Admin: 03/10/18 09:02 Dose: 600 mg Insulin Human Regular (Humulin R Low) 0 units SC ACHS [facility]; Protocol Last Admin: 03/10/18 08:45 Dose: Not Given Lorazepam (Ativan) 1 mg IVP Q6H PRN; Protocol PRN Reason: Anxiety Multivitamins/Minerals (Therapeutic-M Tab) 1 tab PO 0800 [facility] Last Admin: 03/10/18 08:55 Dose: 1 tab Oxycodone HCl (Oxycodone Immediate Release Tab) 10 mg PO Q6H PRN PRN Reason: Pain, severe (8-10) Last Admin: 03/10/18 08:54 Dose: 10 mg Pantoprazole Sodium (Protonix Ec Tab) 40 mg PO 0600 [facility] Last Admin: 03/10/18 05:46 Dose: 40 mg Potassium Chloride (K-Dur 20 Meq Er Tab) 20 meq PO BID [facility] Last Admin: 03/10/18 09:02 Dose: 20 meq Spironolactone (Aldactone) 50 mg PO BID [facility] Last Admin: 03/10/18 09:00 Dose: 50 mg Thiamine HCl (Vitamin B1 Tab) 100 mg PO DAILY [facility] Last Admin: 03/10/18 09:00 Dose: 100 mg - Labs Labs: 03/10/18 07:30 03/10/18 07:30 PT 15.0 SECONDS (9.4-12.5) H 03/07/18 20:00 INR 1.31 03/07/18 20:00 APTT 37.7 Seconds (25.1-36.5) H 03/07/18 20:00 Attending/Attestation - Attestation I have personally seen and examined this patient.: Yes I have fully participated in the care of the patient.: Yes I have reviewed all pertinent clinical information, including history, physical exam and plan: Yes Notes (Text): 03/10/18 13:28 Attending note; Patient seen and examined with resident. Patient is alert and awake. Leg swelling is improving. Denies any fevers, chills. Denies any abdominal pain, nausea, vomiting. Erythema and redness improved. Denies any rectal bleeding. complained of chest pain on palpation. Complaining of difficulty ambulating. Patient is a 42-year-old female with a history of alcohol abuse, alcoholic cirrhosis, gastric bypass surgery, obesity is admitted with bilateral lower extremity swelling and gait instability. 1. Bilateral lower extremity swelling; secondary to advanced liver disease. Started on IV Lasix and Aldactone. Leg swelling is improving. 2. Advanced alcoholic cirrhosis; patient had ascites fluid tap recently. CT abdomen and pelvis showed advanced cirrhosis, splenomegaly and minimal ascites. Abdominal wall edema noted. 3. History of pilonidal cyst; surgery evaluation appreciated. Outpatient surgery follow-up recommended. 4. History of diabetes; diet controlled. Hemoglobin A1c ordered. Dietitian evaluation requested. 5. Deconditioning; patient uses cane and walker at home. 6. Tachycardia; EKG shows sinus tachycardia. Troponin is negative. Pleuritic chest pain. CT angios negative for PE. we will start low-dose Lopressor and monitor. Patient is visiting from [place]. Physical therapy evaluation appreciated. TCU recommended. Patient has [id number] insurance. we Will discuss with wrapper caser for discharge planning.
[2018-03-10] MEDS: Insulin Reg-LOW-Coverage SC SCH ×4 (08:45→21:50)
[2018-03-10] MEDS: Multivitamin With Minerals Tab PO SCH (08:55)
[2018-03-10] MEDS: Enoxaparin 40 mg Syringe SC SCH (09:01)
[2018-03-10] MEDS: Potassium Chloride 20 mEq ER Tab PO SCH ×2 (09:02→17:32)
--- NOTE | 2018-03-10 11:23 | PN ---
DATE: 03/10/2018 SUBJECTIVE: The patient is seen earlier today and no fevers and no chills. No nausea or vomiting. OBJECTIVE: VITAL SIGNS: Temperature is 98, blood pressure is 120/70, respiratory rate of 16. HEENT: Unremarkable. NECK: Supple. LUNGS: Have decreased breath sounds. HEART: Normal S1, S2. ABDOMEN: Soft. LABORATORY EXAMINATION: Reveals the patient's white count is 8.7 and chemistries are noted. Review of orders reveals the patient is off of antibiotics. ASSESSMENT AND PLAN: A 42-year-old female was seen earlier today, diabetes and alcoholic liver disease. I turned , history of perirenal abscess, chronic lymphedema, hyperkalemia, currently no evidence of infection and off of antibiotics, afebrile, normal white count and we will follow with you. Laureano Devries MD
--- NOTE | 2018-03-10 12:38 | CT ---
Date of service: 03/10/2018 PROCEDURE: CT Chest with contrast (Pulmonary Angiogram) HISTORY: tachycardia COMPARISON: 11/05/2016. CT angiogram for pulmonary embolism TECHNIQUE: Axial computed tomography images were obtained of the chest in the pulmonary arterial phase of enhancement. Coronal and sagittal reformatted images were created and reviewed. Intravenous contrast dose: 150 cc Omnipaque 350 Mean Hounsfield value in the main pulmonary artery: 120.65 Radiation dose: Total exam DLP = 535.55 mGy-cm. This CT exam was performed using one or more of the following dose reduction techniques: Automated exposure control, adjustment of the mA and/or kV according to patient size, and/or use of iterative reconstruction technique. FINDINGS: PULMONARY ARTERIES: No large, central pulmonary emboli. Poor opacification of the pulmonary arterial system precludes assessment beyond the lobar branches. AORTA: No acute findings. No thoracic aortic aneurysm. No atherosclerotic calcification or mural plaque present. LUNGS: Linear scarring at the lung bases. No nodule, mass or pulmonary consolidation. PLEURAL SPACES: Unremarkable. No effusion or pneumothorax. HEART: Unremarkable. No cardiomegaly. No significant pericardial effusion. LYMPH NODES: No lymphadenopathy. BONES, CHEST WALL: Unremarkable. No fracture or destructive lesion OTHER FINDINGS: Hepatosplenomegaly. Similar findings identified on prior studies. IMPRESSION: No large/central pulmonary emboli.
--- NOTE | 2018-03-10 22:06 | CARD ---
APPROVED REPORT Date of service: 03/10/2018 EKG Measurement Heart [id number] <Conclusion> Normal sinus rhythm Normal ECG
[2018-03-11] MEDS: Pantoprazole 40 mg EC Tab PO SCH (05:16)
[2018-03-11] MEDS: oxyCODONE 5 mg Immediate Release Tab PO PRN ×3 (05:16→18:16)
[2018-03-11 07:29] LABS: EOS # 0.1 (0.0-0.7); EOS % 0.9 % (1.5-5.0); GRAN # 6.21 (1.4-6.5); GRAN % 79.4 % (50.0-68.0); LYMPH # 1.1 (1.2-3.4); LYMPH % 14.5 % (22.0-35.0); MEAN CELL VOLUME 102.4 fl (80.0-105.0); MEAN CORPUSCULAR HEMOGLOBIN 31.9 pg (25.0-35.0); MEAN CORPUSCULAR HGB CONC 31.1 g/dl (31.0-37.0); MONO # 0.4 (0.1-0.6); MONO % 5.2 % (1.0-6.0); PLATELET COUNT 124 10^3/uL (120.0-450.0); RBC 2.51 10^6/uL (3.5-6.1); RED CELL DISTRIBUTION WIDTH 17.1 % (11.5-14.5); WHITE BLOOD COUNT 7.8 10^3/uL (4.5-11.0)
[2018-03-11 07:55] LABS: ALB/GLOB RATIO 0.6 (1.1-1.8); ALT/SGPT 22 U/L (7-56); AST/SGOT 86 U/L (14-36); BLOOD UREA NITROGEN 6 mg/dL (7-21); CALCIUM 8.3 mg/dL (8.4-10.5); GFR NON-AFRICAN AMERICAN > 60
[2018-03-11] MEDS: Insulin Reg-LOW-Coverage SC SCH ×4 (08:26→22:00)
[2018-03-11] MEDS: Multivitamin With Minerals Tab PO SCH (08:26)
[2018-03-11] MEDS: Potassium Chloride 20 mEq ER Tab PO SCH ×2 (09:24→18:16)
[2018-03-11] MEDS: Enoxaparin 40 mg Syringe SC SCH (09:24)
--- NOTE | 2018-03-11 16:40 | CP.PCM.PN ---
Subjective - Date & Time of Evaluation Date of Evaluation: 03/11/18 Time of Evaluation: 09:30 - Subjective Subjective: Afebrile, comfortable, non-toxic. Objective - Vital Signs/Intake and Output Vital Signs (last 24 hours): Temp Pulse Resp BP Pulse Ox 98.6 F 100 H 20 114/71 98 03/11/18 14:00 03/11/18 14:00 03/11/18 14:00 03/11/18 14:00 03/11/18 14:00 Intake and Output: 03/11/18 03/11/18 06:59 18:59 Output Total 2 Balance -2 - Medications Medications: Current Medications Enoxaparin Sodium (Lovenox) 40 mg SC DAILY [facility]; Protocol Last Admin: 03/11/18 09:24 Dose: 40 mg Folic Acid (Folic Acid) 1 mg PO DAILY [facility] Last Admin: 03/11/18 09:24 Dose: 1 mg Furosemide (Lasix) 20 mg PO BID [facility] Gabapentin (Neurontin) 600 mg PO QID [facility]; Protocol Last Admin: 03/11/18 14:11 Dose: 600 mg Insulin Human Regular (Humulin R Low) 0 units SC [facility]; Protocol Last Admin: 03/11/18 11:23 Dose: Not Given Lorazepam (Ativan) 1 mg IVP Q6H PRN; Protocol PRN Reason: Anxiety Multivitamins/Minerals (Therapeutic-M Tab) 1 tab PO 0800 [facility] Last Admin: 03/11/18 08:26 Dose: 1 tab Oxycodone HCl (Oxycodone Immediate Release Tab) 10 mg PO Q6H PRN PRN Reason: Pain, severe (8-10) Last Admin: 03/11/18 11:55 Dose: 10 mg Pantoprazole Sodium (Protonix Ec Tab) 40 mg PO 0600 [facility] Last Admin: 03/11/18 05:16 Dose: 40 mg Potassium Chloride (K-Dur 20 Meq Er Tab) 20 meq PO BID [facility] Last Admin: 03/11/18 09:24 Dose: 20 meq Spironolactone (Aldactone) 50 mg PO BID [facility] Last Admin: 03/11/18 09:24 Dose: 50 mg Thiamine HCl (Vitamin B1 Tab) 100 mg PO DAILY [facility] Last Admin: 03/10/18 09:00 Dose: 100 mg - Labs Labs: 03/11/18 07:00 03/11/18 07:00 PT 15.0 SECONDS (9.4-12.5) H 03/07/18 20:00 INR 1.31 03/07/18 20:00 APTT 37.7 Seconds (25.1-36.5) H 03/07/18 20:00 - Constitutional Appears: No Acute Distress, Chronically Ill - Head Exam Head Exam: NORMAL INSPECTION - Respiratory Exam Respiratory Exam: Decreased Breath Sounds - Cardiovascular Exam Cardiovascular Exam: +S1, +S2 - GI/Abdominal Exam GI & Abdominal Exam: Soft. absent: Tenderness Assessment and Plan - Assessment and Plan (Free Text) Plan: Assessment Chronic lymphedema with no evidence of cellulitis history of perianal abscess DM hidradenitis suppurativa Assessment continue to monitor off antibiotics since she is at risk for nosocomial infections
--- NOTE | 2018-03-11 16:46 | CP.PCM.PN ---
<Lindsay Green - Last Filed: 03/11/18 16:42> Subjective - Date & Time of Evaluation Date of Evaluation: 03/11/18 Time of Evaluation: 16:42 - Subjective Subjective: INTERNAL MEDICINE PROGRESS NOTE FOR HOSPITALIST SERVICE- DR. DEANDRE Green PGY1 Pt seen and examined at bedside this am. No acute nursing events overnight. Pt reports her legs still feel swollen, however have improved. She was able to undergo physical therapy today. She otherwise denies 12 point ROS Objective - Vital Signs/Intake and Output Vital Signs (last 24 hours): Temp Pulse Resp BP Pulse Ox 98.6 F 100 H 20 114/71 98 03/11/18 14:00 03/11/18 14:00 03/11/18 14:00 03/11/18 14:00 03/11/18 14:00 Intake and Output: 03/11/18 03/11/18 06:59 18:59 Output Total 2 Balance -2 - Medications Medications: Current Medications Enoxaparin Sodium (Lovenox) 40 mg SC DAILY [facility]; Protocol Last Admin: 03/11/18 09:24 Dose: 40 mg Folic Acid (Folic Acid) 1 mg PO DAILY [facility] Last Admin: 03/11/18 09:24 Dose: 1 mg Furosemide (Lasix) 20 mg PO BID [facility] Gabapentin (Neurontin) 600 mg PO QID [facility]; Protocol Last Admin: 03/11/18 14:11 Dose: 600 mg Insulin Human Regular (Humulin R Low) 0 units SC ACHS [facility]; Protocol Last Admin: 03/11/18 11:23 Dose: Not Given Lorazepam (Ativan) 1 mg IVP Q6H PRN; Protocol PRN Reason: Anxiety Multivitamins/Minerals (Therapeutic-M Tab) 1 tab PO 0800 [facility] Last Admin: 03/11/18 08:26 Dose: 1 tab Oxycodone HCl (Oxycodone Immediate Release Tab) 10 mg PO Q6H PRN PRN Reason: Pain, severe (8-10) Last Admin: 03/11/18 11:55 Dose: 10 mg Pantoprazole Sodium (Protonix Ec Tab) 40 mg PO 0600 [facility] Last Admin: 03/11/18 05:16 Dose: 40 mg Potassium Chloride (K-Dur 20 Meq Er Tab) 20 meq PO BID [facility] Last Admin: 03/11/18 09:24 Dose: 20 meq Spironolactone (Aldactone) 50 mg PO BID [facility] Last Admin: 03/11/18 09:24 Dose: 50 mg Thiamine HCl (Vitamin B1 Tab) 100 mg PO DAILY [facility] Last Admin: 03/10/18 09:00 Dose: 100 mg - Labs Labs: 03/11/18 07:00 03/11/18 07:00 PT 15.0 SECONDS (9.4-12.5) H 03/07/18 20:00 INR 1.31 03/07/18 20:00 APTT 37.7 Seconds (25.1-36.5) H 03/07/18 20:00 - Constitutional Appears: Well, Non-toxic, No Acute Distress - Head Exam Head Exam: ATRAUMATIC, NORMAL INSPECTION - Eye Exam Eye Exam: EOMI, Normal appearance - ENT Exam ENT Exam: Mucous Membranes Moist - Neck Exam Neck Exam: Full ROM - Respiratory Exam Respiratory Exam: Clear to Ausculation Bilateral, NORMAL BREATHING PATTERN - Cardiovascular Exam Cardiovascular Exam: REGULAR RHYTHM, +S1, +S2 - GI/Abdominal Exam GI & Abdominal Exam: Soft, Normal Bowel Sounds. absent: Tenderness - Extremities Exam Extremities Exam: Normal Capillary Refill, Pedal Edema, Tenderness - Back Exam Back Exam: NORMAL INSPECTION - Neurological Exam Neurological Exam: Alert, Awake, Oriented x3 - Psychiatric Exam Psychiatric exam: Normal Affect, Normal Mood - Skin Skin Exam: Dry, Intact, Warm Assessment and Plan - Assessment and Plan (Free Text) Assessment: 42 year old Female with PMH of DM2 w/ neuropathy, Cirrhosis 2/2 EtOH Abuse, Hidradenitis Suppurativa, presented to [facility] ED on 03/08 with a chief complaint of BL edema/erythema x2 wks. Plan: Bilateral lower extremity swelling; secondary to advanced liver disease Started on IV Lasix and Aldactone. Leg swelling is improving Advanced alcoholic cirrhosis patient had ascites fluid tap recently. CT abdomen and pelvis showed advanced cirrhosis, splenomegaly and minimal ascites. Abdominal wall edema noted. Continue folic acid, multivitamin, thiamine History of pilonidal cyst surgery evaluation appreciated. Outpatient surgery follow-up recommended. Continue chlorhexidine History of diabetes diet controlled. Hemoglobin A1c ordered. Dietitian evaluation requested. Deconditioning patient uses cane and walker at home. PT recs home w/ services Tachycardia EKG shows sinus tachycardia. Troponin is negative. Pleuritic chest pain. CT angios negative for PE. we will start low-dose Lopressor and monitor. DVT/GI PPx: LVX/protonix po Dispo: Pt is from [place]. Discuss with case management Case seen, examined and discussed with attending physician, Dr. Rodrigues <Blanca Rodrigues R - Last Filed: 03/12/18 14:31> Objective - Vital Signs/Intake and Output Vital Signs (last 24 hours): Temp Pulse Resp BP Pulse Ox 98.4 F 98 H 18 110/60 95 03/12/18 06:00 03/12/18 06:00 03/12/18 06:00 03/12/18 10:42 03/12/18 06:00 Intake and Output: 03/12/18 03/12/18 06:59 18:59 Intake Total 240 Balance 240 - Medications Medications: Current Medications Folic Acid (Folic Acid) 1 mg PO DAILY [facility] Last Admin: 03/12/18 10:43 Dose: 1 mg Furosemide (Lasix) 20 mg PO BID [facility] Last Admin: 03/12/18 10:42 Dose: 20 mg Gabapentin (Neurontin) 600 mg PO QID [facility]; Protocol Last Admin: 03/12/18 13:56 Dose: 600 mg Insulin Human Regular (Humulin R Low) 0 units SC ACHS [facility]; Protocol Last Admin: 03/12/18 11:52 Dose: Not Given Lorazepam (Ativan) 1 mg IVP Q6H PRN; Protocol PRN Reason: Anxiety Multivitamins/Minerals (Therapeutic-M Tab) 1 tab PO 0800 [facility] Last Admin: 03/12/18 10:42 Dose: 1 tab Oxycodone HCl (Oxycodone Immediate Release Tab) 10 mg PO Q6H PRN PRN Reason: Pain, severe (8-10) Last Admin: 03/12/18 14:01 Dose: 10 mg Pantoprazole Sodium (Protonix Ec Tab) 40 mg PO 0600 [facility] Last Admin: 03/12/18 10:42 Dose: 40 mg Potassium Chloride (K-Dur 20 Meq Er Tab) 20 meq PO BID [facility] Last Admin: 03/12/18 10:42 Dose: 20 meq Spironolactone (Aldactone) 50 mg PO BID [facility] Last Admin: 03/12/18 10:43 Dose: 50 mg Thiamine HCl (Vitamin B1 Tab) 100 mg PO DAILY [facility] Last Admin: 03/12/18 10:43 Dose: 100 mg - Labs Labs: 03/12/18 13:00 03/12/18 08:00 PT 15.0 SECONDS (9.4-12.5) H 03/07/18 20:00 INR 1.31 03/07/18 20:00 APTT 37.7 Seconds (25.1-36.5) H 03/07/18 20:00 Attending/Attestation - Attestation I have personally seen and examined this patient.: Yes I have fully participated in the care of the patient.: Yes I have reviewed all pertinent clinical information, including history, physical exam and plan: Yes Notes (Text): Patient seen and examined by me with resident at 11:15AM on 03/11/18. Case including HPI, physical exam, and assessment and plan discussed with resident. Agree with above with following additions/corrections. Patient is a 42-year-old female with past medical history significant for type 2 diabetes with neuropathy, cirrhosis secondary to alcohol abuse, pancreatitis, medication noncompliance, hidradenitis suppurative, rectal cyst, and rectal abscess that presented to the emergency room for bilateral lower extremity edema and erythema for 2 weeks. Patient states she is feeling a little better. States she is having pain in her legs. Patient is asking for more pain medications. Patient states she is having a little difficulty ambulating. Patient has a history of difficulty ambulating and leg edema. Per patient she takes Lasix at home but ran out. She states that she sees a physical therapist in [place]. Patient denies shortness of breath. No chest pain or palpitations. No headaches or dizziness. No fevers or chills. No nausea, vomiting, or abdominal pain. No dysuria. No diarrhea or constipation. Physical exam: General: Awake and alert sitting up in bed in no acute distress HEENT: Normocephalic, atraumatic. Extraocular muscles intact, pupils equal and reactive, no scleral icterus. Oropharynx is pink and moist. No pharyngeal erythema or exudate appreciated. Neck is supple. Cardiovascular: Regular rhythm. Normal S1 and S2. No murmurs, rubs, or gallops appreciated Pulmonary: Normal respiratory effort. No rhonchi, rales, or wheezing ap preciated. Gastrointestinal: Soft, nondistended. Nontender. Positive bowel sounds all 4 quadrants. No guarding. Positive obese abdomen Musculoskeletal: Moves all extremities. Positive bilateral lower extremity edema and mild erythema, no warmth, mildly tender to deep palpation. Central nervous system: AAOx3, CN 2-12 grossly intact. Dermatologic: Skin warm and dry. Assessment and plan: Patient is a 42-year-old female with past medical history significant for type 2 diabetes with neuropathy, cirrhosis secondary to alcohol abuse, pancreatitis, medication noncompliance, hidradenitis suppurative, rectal cyst, and rectal abscess that presented to the emergency room for bilateral lower extremity edema and erythema for 2 weeks. 1. Lower extremity edema. Improved. Per patient, chronic, but likely worsened secondary to running out of Lasix. Continue Lasix and aldactone. Bilateral lower extremity venous dopplers negative for DVT. ?secondary to history of liver cirrhosis. 2-D echo per scientific database curator showed normal left ventricular wall thickness, left ventricular function is normal, left ventricular ejection fraction is within the normal range, normal LV segmental wall motion, left ventricular diastolic function is normal, mitral regurgitation is mild to moderate, mild to moderate tricuspid regurgitation. Bilateral tibial and fibula x-rays per radiologist are unremarkable. ID following, recommendations appreciated. Off antibiotics. No leukocytosis and patient is afebrile. 2. Hepatomegaly. Chronic. Patient states she is aware of it. She states she had ascites and was scheduled for paracentesis, however she never went. Patient advised that she will need outpatient follow up with her primary care doctor for possible liver CT. She understands and agrees. 3. Maricruz-anal abscess. Continue warm compresses. Surgical team recommendations appreciated, no surgical intervention. CT abdomen and pelvis per radiologist showed hepatomegaly, extensive heterogeneity of the hepatic parenchyma, mildly nodular hepatic contour, recannulized umbilical vein; fatty atrophy of the pancreas, question pancreatic edema; splenomegaly; small abdominal and pelvic ascites; cholecystectomy, postsurgical gastric changes, anastomotic bowel suture material; mild right greater than left basilar atelectasis. ID following, recommendations appreciated. Patient being monitored off antibiotics. No leukocytosis and patient is afebrile. Patient will need outpatient follow-up. 4. Tachycardia. Improved. CTA per radiologist negative for PE. Likely secondary to deconditioning. 5. Type 2 diabetes. Diet controlled. Hemoglobin A1c 4.9. 6. Neuropathy. Continue gabapentin. 7. Anemia. Chronic. Patient unsure of baseline H&H. Continue to monitor. 8. History of alcohol abuse. Continue thiamine, multivitamin, and folic acid. 9. GI/DVT prophylaxis. Protonix/Lovenox. 10. Patient is a full code. Case was discussed in detail with the patient regarding current diagnosis and treatment plan. All questions answered.
[2018-03-12] MEDS: oxyCODONE 5 mg Immediate Release Tab PO PRN ×4 (00:09→21:12)
[2018-03-12] MEDS: Insulin Reg-LOW-Coverage SC SCH ×4 (07:47→23:26)
[2018-03-12 08:17] LABS: BASO # 0.01 K/mm3 (0.0-2.0); BASO % 0.1 % (0.0-3.0); EOS # 0.1 (0.0-0.7); EOS % 1.2 % (1.5-5.0); GRAN # 6.14 (1.4-6.5); GRAN % 75.6 % (50.0-68.0); HEMOGLOBIN 7.7 g/dL (12.0-16.0); LYMPH # 1.4 (1.2-3.4); LYMPH % 16.9 % (22.0-35.0); MEAN CELL VOLUME 102.1 fl (80.0-105.0); MEAN CORPUSCULAR HEMOGLOBIN 32.5 pg (25.0-35.0); MEAN CORPUSCULAR HGB CONC 31.8 g/dl (31.0-37.0); MONO # 0.5 (0.1-0.6); MONO % 6.2 % (1.0-6.0); PLATELET COUNT 111 10^3/uL (120.0-450.0); RBC 2.37 10^6/uL (3.5-6.1); WHITE BLOOD COUNT 8.1 10^3/uL (4.5-11.0)
[2018-03-12 08:31] LABS: ALB/GLOB RATIO 0.5 (1.1-1.8); ALBUMIN 2.9 g/dL (3.0-4.8); ALT/SGPT 25 U/L (7-56); AST/SGOT 80 U/L (14-36); BLOOD UREA NITROGEN 6 mg/dL (7-21); CALCIUM 8.2 mg/dL (8.4-10.5); GFR NON-AFRICAN AMERICAN > 60
[2018-03-12] MEDS: Multivitamin With Minerals Tab PO SCH (10:42)
[2018-03-12] MEDS: Pantoprazole 40 mg EC Tab PO SCH (10:42)
[2018-03-12] MEDS: Enoxaparin 40 mg Syringe SC SCH (10:42)
[2018-03-12] MEDS: Potassium Chloride 20 mEq ER Tab PO SCH ×2 (10:42→17:32)
[2018-03-12 13:15] LABS: BASO # 0.01 K/mm3 (0.0-2.0); BASO % 0.1 % (0.0-3.0); EOS # 0.1 (0.0-0.7); EOS % 1.1 % (1.5-5.0); GRAN # 7.14 (1.4-6.5); GRAN % 80.7 % (50.0-68.0); HEMOGLOBIN 8.2 g/dL (12.0-16.0); LYMPH # 1.2 (1.2-3.4); LYMPH % 13.6 % (22.0-35.0); MEAN CELL VOLUME 102.4 fl (80.0-105.0); MEAN CORPUSCULAR HEMOGLOBIN 32.5 pg (25.0-35.0); MEAN CORPUSCULAR HGB CONC 31.8 g/dl (31.0-37.0); MONO # 0.4 (0.1-0.6); MONO % 4.5 % (1.0-6.0); RBC 2.52 10^6/uL (3.5-6.1); RED CELL DISTRIBUTION WIDTH 16.9 % (11.5-14.5); WHITE BLOOD COUNT 8.9 10^3/uL (4.5-11.0)
--- NOTE | 2018-03-12 14:59 | CP.PCM.PN ---
Subjective - Date & Time of Evaluation Date of Evaluation: 03/12/18 Time of Evaluation: 14:55 - Subjective Subjective: Surgery progress note for Dr Ramirez Patient seen and examined at bedside. She reports improving pain at sacral area. Denied fever, chills Objective - Vital Signs/Intake and Output Vital Signs (last 24 hours): Temp Pulse Resp BP Pulse Ox 98.4 F 98 H 18 110/60 95 03/12/18 06:00 03/12/18 06:00 03/12/18 06:00 03/12/18 10:42 03/12/18 06:00 Intake and Output: 03/12/18 03/12/18 06:59 18:59 Intake Total 240 Balance 240 - Medications Medications: Current Medications Folic Acid (Folic Acid) 1 mg PO DAILY [facility] Last Admin: 03/12/18 10:43 Dose: 1 mg Furosemide (Lasix) 20 mg PO BID [facility] Last Admin: 03/12/18 10:42 Dose: 20 mg Gabapentin (Neurontin) 600 mg PO QID [facility]; Protocol Last Admin: 03/12/18 13:56 Dose: 600 mg Insulin Human Regular (Humulin R Low) 0 units SC ACHS [facility]; Protocol Last Admin: 03/12/18 11:52 Dose: Not Given Lorazepam (Ativan) 1 mg IVP Q6H PRN; Protocol PRN Reason: Anxiety Multivitamins/Minerals (Therapeutic-M Tab) 1 tab PO 0800 [facility] Last Admin: 03/12/18 10:42 Dose: 1 tab Oxycodone HCl (Oxycodone Immediate Release Tab) 5 mg PO Q8H PRN PRN Reason: Pain, severe (8-10) Pantoprazole Sodium (Protonix Ec Tab) 40 mg PO 0600 [facility] Last Admin: 03/12/18 10:42 Dose: 40 mg Potassium Chloride (K-Dur 20 Meq Er Tab) 20 meq PO BID [facility] Last Admin: 03/12/18 10:42 Dose: 20 meq Spironolactone (Aldactone) 50 mg PO BID [facility] Last Admin: 03/12/18 10:43 Dose: 50 mg Thiamine HCl (Vitamin B1 Tab) 100 mg PO DAILY [facility] Last Admin: 03/12/18 10:43 Dose: 100 mg - Labs Labs: 03/12/18 13:00 03/12/18 08:00 PT 15.0 SECONDS (9.4-12.5) H 03/07/18 20:00 INR 1.31 03/07/18 20:00 APTT 37.7 Seconds (25.1-36.5) H 03/07/18 20:00 - Constitutional Appears: Well, No Acute Distress - Cardiovascular Exam Cardiovascular Exam: REGULAR RHYTHM, +S1, +S2. absent: Murmur - GI/Abdominal Exam GI & Abdominal Exam: Soft, Normal Bowel Sounds. absent: Tenderness - Neurological Exam Neurological Exam: Alert, Awake, Oriented x3 - Psychiatric Exam Psychiatric exam: Normal Affect, Normal Mood - Skin Additional comments: 2 open wounds in sacral area. minimal drainage, no erythema, no tenderness to palpate, no signs of infection. Assessment and Plan - Assessment and Plan (Free Text) Assessment: 42 y/o female admitted for b/l lower extremity cellulitis w/ trish-anal abscess Pilonidal cyst Plan: -Patient afebrile, minimal drainage,no tenderness or signs of infection noted on exam -Dressing changed -Patient to f/u for out patient elective surgery for pilonidal cyst. Patient lives in [place] and will f/u with her PMD
--- NOTE | 2018-03-12 16:31 | CP.PCM.PN ---
<Lindsay Green - Last Filed: 03/12/18 16:25> Subjective - Date & Time of Evaluation Date of Evaluation: 03/12/18 Time of Evaluation: 16:25 - Subjective Subjective: INTERNAL MEDICINE PROGRESS NOTE FOR DR. DEANDRE Green PGY1 Pt seen and examined at bedside this am. She reports swelling has improved. She has been tolerating PT well, she was able to walk up stairs with minimal assistance. 12 point ROS is otherwise negative Objective - Vital Signs/Intake and Output Vital Signs (last 24 hours): Temp Pulse Resp BP Pulse Ox 98.4 F 98 H 18 110/60 95 03/12/18 06:00 03/12/18 06:00 03/12/18 06:00 03/12/18 10:42 03/12/18 06:00 Intake and Output: 03/12/18 03/12/18 06:59 18:59 Intake Total 240 Balance 240 - Medications Medications: Current Medications Folic Acid (Folic Acid) 1 mg PO DAILY [facility] Last Admin: 03/12/18 10:43 Dose: 1 mg Furosemide (Lasix) 20 mg PO BID [facility] Last Admin: 03/12/18 10:42 Dose: 20 mg Gabapentin (Neurontin) 600 mg PO QID [facility]; Protocol Last Admin: 03/12/18 13:56 Dose: 600 mg Insulin Human Regular (Humulin R Low) 0 units SC ACHS [facility]; Protocol Last Admin: 03/12/18 11:52 Dose: Not Given Lorazepam (Ativan) 1 mg IVP Q6H PRN; Protocol PRN Reason: Anxiety Multivitamins/Minerals (Therapeutic-M Tab) 1 tab PO 0800 [facility] Last Admin: 03/12/18 10:42 Dose: 1 tab Oxycodone HCl (Oxycodone Immediate Release Tab) 5 mg PO Q8H PRN PRN Reason: Pain, severe (8-10) Pantoprazole Sodium (Protonix Ec Tab) 40 mg PO 0600 [facility] Last Admin: 03/12/18 10:42 Dose: 40 mg Potassium Chloride (K-Dur 20 Meq Er Tab) 20 meq PO BID [facility] Last Admin: 03/12/18 10:42 Dose: 20 meq Spironolactone (Aldactone) 50 mg PO BID [facility] Last Admin: 03/12/18 10:43 Dose: 50 mg Thiamine HCl (Vitamin B1 Tab) 100 mg PO DAILY [facility] Last Admin: 03/12/18 10:43 Dose: 100 mg - Labs Labs: 03/12/18 13:00 03/12/18 08:00 PT 15.0 SECONDS (9.4-12.5) H 03/07/18 20:00 INR 1.31 03/07/18 20:00 APTT 37.7 Seconds (25.1-36.5) H 03/07/18 20:00 - Constitutional Appears: Well, Non-toxic, No Acute Distress - Head Exam Head Exam: NORMAL INSPECTION, NORMOCEPHALIC - Eye Exam Eye Exam: EOMI, Normal appearance - ENT Exam ENT Exam: Mucous Membranes Moist, Normal Exam - Neck Exam Neck Exam: Normal Inspection. absent: Meningismus - Respiratory Exam Respiratory Exam: NORMAL BREATHING PATTERN - Cardiovascular Exam Cardiovascular Exam: REGULAR RHYTHM, +S1, +S2 - GI/Abdominal Exam GI & Abdominal Exam: Soft, Organomegaly. absent: Tenderness - Extremities Exam Extremities Exam: Joint Swelling, Pedal Edema. absent: Calf Tenderness - Back Exam Back Exam: NORMAL INSPECTION - Neurological Exam Neurological Exam: Awake, Oriented x3 - Psychiatric Exam Psychiatric exam: Normal Affect, Normal Mood - Skin Skin Exam: Dry, Intact, Warm Assessment and Plan - Assessment and Plan (Free Text) Assessment: 42 year old Female with PMH of DM2 w/ neuropathy, Cirrhosis 2/2 EtOH Abuse, Hidradenitis Suppurativa, presented to [facility] ED on 03/08 with a chief complaint of BL edema/erythema x2 wks. Plan: Bilateral lower extremity swelling; secondary to advanced liver disease Improved Currently on po lasix and Aldactone. Leg swelling is improving Advanced alcoholic cirrhosis Known history of alcohol abuse and hepatomegaly/ascites. Pt confirms that she is aware of it CT abdomen and pelvis showed advanced cirrhosis, splenomegaly and minimal ascites. Abdominal wall edema noted. Continue folic acid, multivitamin, thiamine Pt advised for outpatient evaluation for hepatomegaly Pilonidal cyst continue warm compresses surgery evaluation appreciated. Outpatient surgery follow-up recommended. Continue chlorhexidine Diabetes diet controlled. Hemoglobin A1c ordered. Dietitian evaluation requested. Deconditioning patient uses cane and walker at home. PT recs home w/ services Tachycardia EKG shows sinus tachycardia. Troponin is negative. Pleuritic chest pain. CT angios negative for PE.continue Lopressor and monitor. DVT/GI PPx: LVX/protonix po Code status: Full code Dispo: Physical therapy evaluated patient and recommended one more session. Recommended RW upon discharge for ambulation. Pt is from [place]. Case seen, examined and discussed with attending physician, Dr. Rodrigues <Blanca Rodrigues R - Last Filed: 03/13/18 13:37> Objective - Vital Signs/Intake and Output Vital Signs (last 24 hours): Temp Pulse Resp BP Pulse Ox 97.9 F 99 H 18 123/76 100 03/13/18 06:00 03/13/18 06:00 03/13/18 06:00 03/13/18 09:41 03/13/18 06:00 Intake and Output: 03/13/18 03/13/18 06:59 18:59 Intake Total 240 Balance 240 - Medications Medications: Current Medications Folic Acid (Folic Acid) 1 mg PO DAILY [facility] Last Admin: 03/13/18 09:40 Dose: 1 mg Furosemide (Lasix) 20 mg PO BID [facility] Last Admin: 03/13/18 09:41 Dose: 20 mg Gabapentin (Neurontin) 600 mg PO QID [facility]; Protocol Last Admin: 03/13/18 09:40 Dose: 600 mg Insulin Human Regular (Humulin R Low) 0 units SC ACHS [facility]; Protocol Last Admin: 03/13/18 07:41 Dose: Not Given Lorazepam (Ativan) 1 mg IVP Q6H PRN; Protocol PRN Reason: Anxiety Multivitamins/Minerals (Therapeutic-M Tab) 1 tab PO 0800 [facility] Last Admin: 03/12/18 10:42 Dose: 1 tab Oxycodone HCl (Oxycodone Immediate Release Tab) 5 mg PO Q8H PRN PRN Reason: Pain, severe (8-10) Last Admin: 03/13/18 07:02 Dose: 5 mg Pantoprazole Sodium (Protonix Ec Tab) 40 mg PO 0600 [facility] Last Admin: 03/12/18 10:42 Dose: 40 mg Potassium Chloride (K-Dur 20 Meq Er Tab) 20 meq PO BID [facility] Last Admin: 03/13/18 09:40 Dose: 20 meq Spironolactone (Aldactone) 50 mg PO BID [facility] Last Admin: 03/13/18 09:39 Dose: 50 mg Thiamine HCl (Vitamin B1 Tab) 100 mg PO DAILY [facility] Last Admin: 03/12/18 10:43 Dose: 100 mg - Labs Labs: 03/13/18 07:00 03/13/18 07:00 PT 15.0 SECONDS (9.4-12.5) H 03/07/18 20:00 INR 1.31 03/07/18 20:00 APTT 37.7 Seconds (25.1-36.5) H 03/07/18 20:00 Attending/Attestation - Attestation I have personally seen and examined this patient.: Yes I have fully participated in the care of the patient.: Yes I have reviewed all pertinent clinical information, including history, physical exam and plan: Yes Notes (Text): Patient seen and examined by me with resident at 11:40AM on 03/12/18. Case including HPI, physical exam, and assessment and plan discussed with resident. Agree with above with following additions/corrections. Patient is a 42-year-old female with past medical history significant for type 2 diabetes with neuropathy, cirrhosis secondary to alcohol abuse, pancreatitis, medication noncompliance, hidradenitis suppurative, rectal cyst, and rectal abscess that presented to the emergency room for bilateral lower extremity edema and erythema for 2 weeks. Patient states she is feeling ok. Patient states swelling in her legs has improved. States she had some bleeding from her leg yesterday. However, when examined, bleeding was from site where patient had been scratching and caused superficial abrasions. Continues to have pain in her legs and is having difficulty ambulating. Difficulty with ambulating chronic as patient uses walker and cane at home, also has a ramp to get into her home in [place]. Sarah hastings also follows with physical therapy in [place]. Patient states she is aware of her hepatomegaly and splenomegaly and it is followed with her doctor in [place]. Patient denies shortness of breath. No chest pain or palpitations. No headaches or dizziness. No fevers or chills. No nausea, vomiting, or abdominal pain. No dysuria. No diarrhea or constipation. Physical exam: General: Awake and alert sitting up in bed in no acute distress HEENT: Normocephalic, atraumatic. Extraocular muscles intact, pupils equal and reactive, no scleral icterus. Oropharynx is pink and moist. No pharyngeal e rythema or exudate appreciated. Neck is supple. Cardiovascular: Regular rhythm. Normal S1 and S2. No murmurs, rubs, or gallops appreciated Pulmonary: Normal respiratory effort. No rhonchi, rales, or wheezing appreciated. Gastrointestinal: Soft, nondistended. Nontender. Positive bowel sounds all 4 q uadrants. No guarding. Positive obese abdomen Musculoskeletal: Moves all extremities. Positive bilateral lower extremity edema and mild erythema, no warmth, mildly tender to deep palpation. Central nervous system: AAOx3, CN 2-12 grossly intact. Dermatologic: Skin warm and dry. Assessment and plan: Patient is a 42-year-old female with past medical history significant for type 2 diabetes with neuropathy, cirrhosis secondary to alcohol abuse, pancreatitis, medication noncompliance, hidradenitis suppurative, rectal cyst, and rectal abscess that presented to the emergency room for bilateral l ower extremity edema and erythema for 2 weeks. 1. Gait instability. Secondary to lower extremity edema. Patient also with chronic difficulty ambulating. Patient to continue physical therapy. Patient d oes follow with physical therapy in [place] and also uses a cane and walker at home. 2. Lower extremity edema. Improving. Per patient, chronic, but likely worsened secondary to running out of Lasix at home. Continue Lasix and aldactone. Bilateral lower extremity venous dopplers negative for DVT. ?secondary to history of liver cirrhosis. 2-D echo per continuous improvement consultant showed normal left ventricular wall thickness, left ventricular function is normal, left ventricular ejection fraction is within the normal range, normal LV segmental wall motion, left ventricular diastolic function is normal, mitral regurgitation is mild to moderate, mild to moderate tricuspid regurgitation. Bilateral tibial and fibula x-rays per radiologist are unremarkable. ID following, recommendations appreciated. Off antibiotics. No leukocytosis and patient is afebrile. Continue Physical therapy. 3. Hepatomegaly. Chronic. Patient states she is aware of it. She states she is being followed in [place] for this. Patient advised that she will need outpatient follow up with her primary care doctor for possible liver CT. She understands and agrees. 4. Maricruz-anal abscess. Continue warm compresses. Surgical team recommendations appreciated, no surgical intervention. Re-evaluated today. CT abdomen and pelvis per radiologist showed hepatomegaly, extensive heterogeneity of the hepatic parenchyma, mildly nodular hepatic contour, recannulized umbilical vein; fatty atrophy of the pancreas, question pancreatic edema; splenomegaly; small abdominal and pelvic ascites; cholecystectomy, postsurgical gastric changes, anastomotic bowel suture material; mild right greater than left basilar atelectasis. ID following, recommendations appreciated. Patient being monitored off antibiotics. No leukocytosis and patient is afebrile. Patient will need outpatient follow-up. 5. Tachycardia. Improved. CTA per radiologist negative for PE. Likely secondary to deconditioning. 6. Type 2 diabetes. Diet controlled. Hemoglobin A1c 4.9. 7. Neuropathy. Continue gabapentin. 8. Anemia. Chronic. Patient unsure of baseline H&H. Continue to monitor. 9. History of alcohol abuse. Continue thiamine, multivitamin, and folic acid. 10. GI/DVT prophylaxis. Protonix/Lovenox. 11. Patient is a full code. Case was discussed in detail with the patient regarding current diagnosis and treatment plan. All questions answered.
--- NOTE | 2018-03-12 16:46 | CP.PCM.PN ---
Subjective - Date & Time of Evaluation Date of Evaluation: 03/12/18 Time of Evaluation: 09:40 - Subjective Subjective: No fevers, non-toxic, no diarrhea. Objective - Vital Signs/Intake and Output Vital Signs (last 24 hours): Temp Pulse Resp BP Pulse Ox 98.6 F 100 H 20 114/71 98 03/11/18 14:00 03/11/18 14:00 03/11/18 14:00 03/11/18 14:00 03/11/18 14:00 Intake and Output: 03/11/18 03/11/18 06:59 18:59 Output Total 2 Balance -2 - Medications Medications: Current Medications Enoxaparin Sodium (Lovenox) 40 mg SC DAILY [facility]; Protocol Last Admin: 03/11/18 09:24 Dose: 40 mg Folic Acid (Folic Acid) 1 mg PO DAILY [facility] Last Admin: 03/11/18 09:24 Dose: 1 mg Furosemide (Lasix) 20 mg PO BID [facility] Gabapentin (Neurontin) 600 mg PO QID [facility]; Protocol Last Admin: 03/11/18 14:11 Dose: 600 mg Insulin Human Regular (Humulin R Low) [address] [facility]; Protocol Last Admin: 03/11/18 11:23 Dose: Not Given Lorazepam (Ativan) 1 mg IVP Q6H PRN; Protocol PRN Reason: Anxiety Multivitamins/Minerals (Therapeutic-M Tab) 1 tab PO 0800 [facility] Last Admin: 03/11/18 08:26 Dose: 1 tab Oxycodone HCl (Oxycodone Immediate Release Tab) 10 mg PO Q6H PRN PRN Reason: Pain, severe (8-10) Last Admin: 03/11/18 11:55 Dose: 10 mg Pantoprazole Sodium (Protonix Ec Tab) 40 mg PO 0600 [facility] Last Admin: 03/11/18 05:16 Dose: 40 mg Potassium Chloride (K-Dur 20 Meq Er Tab) 20 meq PO BID [facility] Last Admin: 03/11/18 09:24 Dose: 20 meq Spironolactone (Aldactone) 50 mg PO BID [facility] Last Admin: 03/11/18 09:24 Dose: 50 mg Thiamine HCl (Vitamin B1 Tab) 100 mg PO DAILY [facility] Last Admin: 03/10/18 09:00 Dose: 100 mg - Labs Labs: 03/11/18 07:00 03/11/18 07:00 PT 15.0 SECONDS (9.4-12.5) H 03/07/18 20:00 INR 1.31 03/07/18 20:00 APTT 37.7 Seconds (25.1-36.5) H 03/07/18 20:00 - Constitutional Appears: Chronically Ill - Head Exam Head Exam: NORMAL INSPECTION - Respiratory Exam Respiratory Exam: Decreased Breath Sounds - Cardiovascular Exam Cardiovascular Exam: +S1, +S2 - GI/Abdominal Exam GI & Abdominal Exam: Soft. absent: Tenderness Assessment and Plan - Assessment and Plan (Free Text) Plan: Assessment Chronic lymphedema with no evidence of cellulitis history of perianal abscess DM hidradenitis suppurativa Assessment continue to monitor off antibiotics since she is at risk for hospital-acquired infections
[2018-03-13] MEDS: oxyCODONE 5 mg Immediate Release Tab PO PRN ×2 (07:02→15:23)
[2018-03-13 07:27] LABS: BASO # 0.01 K/mm3 (0.0-2.0); BASO % 0.1 % (0.0-3.0); EOS # 0.1 (0.0-0.7); EOS % 1.1 % (1.5-5.0); GRAN # 6.23 (1.4-6.5); GRAN % 77.5 % (50.0-68.0); HEMOGLOBIN 7.8 g/dL (12.0-16.0); LYMPH # 1.3 (1.2-3.4); LYMPH % 15.8 % (22.0-35.0); MEAN CELL VOLUME 102.4 fl (80.0-105.0); MEAN CORPUSCULAR HEMOGLOBIN 31.1 pg (25.0-35.0); MEAN CORPUSCULAR HGB CONC 30.4 g/dl (31.0-37.0); MONO # 0.4 (0.1-0.6); MONO % 5.5 % (1.0-6.0); PLATELET COUNT 104 10^3/uL (120.0-450.0); RBC 2.51 10^6/uL (3.5-6.1); RED CELL DISTRIBUTION WIDTH 16.7 % (11.5-14.5)
[2018-03-13] MEDS: Insulin Reg-LOW-Coverage SC SCH ×2 (07:41→11:30)
[2018-03-13 07:47] LABS: ALB/GLOB RATIO 0.6 (1.1-1.8); ALBUMIN 2.8 g/dL (3.0-4.8); ALT/SGPT 21 U/L (7-56); AST/SGOT 80 U/L (14-36); BLOOD UREA NITROGEN 6 mg/dL (7-21); CALCIUM 8.2 mg/dL (8.4-10.5); GFR NON-AFRICAN AMERICAN > 60
[2018-03-13 08:06] VITALS: PULSE 99
[2018-03-13] MEDS: Potassium Chloride 20 mEq ER Tab PO SCH (09:40)
[2018-03-13 14:49] VITALS: BP 140/90; RESP 20; TEMP 98.4; O2SAT 98
--- NOTE | 2018-03-13 15:30 | CP.PCM.DIS ---
Provider - Provider Date of Admission: 03/07/18 23:05 Attending physician: Lamont Keith MD Consults: 03/08/18 00:40 General Surgery Consult Routine Comment: Consulting Provider: Montez Spears Consulting Physician: Montez Spears Reason for Consult: Rectal abscess Infectious Disease Consult Routine Comment: Consulting Provider: Laureano Devries Consulting Physician: Laureano Devries Reason for Consult: Cellulitis of BL LE as well as possible cellulitis of inguinal regio 03/09/18 11:09 TCU [Evaluation for TRCU] Routine Comment: Physician Instructions: Reason For Exam: gait instability 03/12/18 00:08 Nursing Referral for Wound Care Routine Comment: Physician Instructions: Reason For Exam: met criteria 03/12/18 13:21 Nursing Referral for Wound Care Routine Comment: Physician Instructions: Reason For Exam: N/A 03/12/18 22:22 Nursing Referral for Wound Care Routine Comment: Physician Instructions: Reason For Exam: met criteria Time Spent in preparation of Discharge (in minutes): 45 Diagnosis - Discharge Diagnosis (1) Lower extremity edema Status: Chronic (2) Lymphedema Status: Chronic Hospital Course - Lab Results Lab Results: Micro Results 03/07/18 20:05 Blood-Venous Blood Culture - Final NO GROWTH AFTER 5 DAYS 03/07/18 20:05 Blood-Venous Gram Stain - Final TEST NOT PERFORMED 03/07/18 20:00 Blood-Venous Blood Culture - Final NO GROWTH AFTER 5 DAYS 03/07/18 20:00 Blood-Venous Gram Stain - Final TEST NOT PERFORMED Most Recent Lab Values WBC 8.0 10^3/uL (4.5-11.0) 03/13/18 07:00 RBC 2.51 10^6/uL (3.5-6.1) L 03/13/18 07:00 Hgb 7.8 g/dL (12.0-16.0) L 03/13/18 07:00 Hct 25.7 % (36.0-48.0) L 03/13/18 07:00 MCV 102.4 fl (80.0-105.0) 03/13/18 07:00 MCH 31.1 pg (25.0-35.0) 03/13/18 07:00 MCHC 30.4 g/dl (31.0-37.0) L 03/13/18 07:00 RDW 16.7 % (11.5-14.5) H 03/13/18 07:00 Plt Count 104 10^3/uL (120.0-450.0) L 03/13/18 07:00 MPV 13.0 fl (7.0-11.0) H 03/12/18 13:00 Gran % 77.5 % (50.0-68.0) H 03/13/18 07:00 Lymph % (Auto) 15.8 % (22.0-35.0) L 03/13/18 07:00 [place] % (Auto) 5.5 % (1.0-6.0) 03/13/18 07:00 Eos % (Auto) 1.1 % (1.5-5.0) L 03/13/18 07:00 Baso % (Auto) 0.1 % (0.0-3.0) 03/13/18 07:00 Gran # 6.23 (1.4-6.5) 03/13/18 07:00 Lymph # (Auto) 1.3 (1.2-3.4) 03/13/18 07:00 [place] # (Auto) 0.4 (0.1-0.6) 03/13/18 07:00 Eos # (Auto) 0.1 (0.0-0.7) 03/13/18 07:00 Baso # (Auto) 0.01 K/mm3 (0.0-2.0) 03/13/18 07:00 Retic Count 2.45 % (0.5-1.5) H 03/08/18 06:30 PT 15.0 SECONDS (9.4-12.5) H 03/07/18 20:00 INR 1.31 03/07/18 20:00 APTT 37.7 Seconds (25.1-36.5) H 03/07/18 20:00 pO2 58 mm/Hg (30-55) H 03/07/18 20:00 VBG pH 7.36 (7.32-7.43) 03/07/18 20:00 VBG pCO2 55.0 (40-60) 03/07/18 20:00 VBG HCO3 31.1 mmol/l (21-28) H 03/07/18 20:00 VBG Total CO2 32.8 mmol.L (22-28) H 03/07/18 20:00 VBG O2 Sat (Calc) 90.5 % (40-65) H 03/07/18 20:00 VBG Base Excess 4.2 mmol/L (0.0-2.0) H 03/07/18 20:00 VBG Potassium 2.9 mmol/L (3.6-5.2) L 03/07/18 20:00 Sodium 141.0 mmol/L (132-148) 03/07/18 20:00 Chloride 106.0 mmol/L (98-107) 03/07/18 20:00 Glucose 93 mg/dl (65-105) 03/07/18 20:00 Lactate 1.4 mmol/L (0.7-2.1) 03/07/18 20:00 FiO2 21.0 % 03/07/18 20:00 Sodium 136 mmol/L (132-148) 03/13/18 07:00 Potassium 3.7 mmol/L (3.6-5.0) 03/13/18 07:00 Chloride 97 mmol/L (98-107) L 03/13/18 07:00 Carbon Dioxide 35 mmol/L (21-33) H 03/13/18 07:00 Anion Gap 8 (10-20) L 03/13/18 07:00 BUN 6 mg/dL (7-21) L 03/13/18 07:00 Creatinine 0.7 mg/dl (0.7-1.2) 03/13/18 07:00 Est GFR ( Amer) > 60 03/13/18 07:00 Est GFR (Non-Af Amer) > 60 03/13/18 07:00 POC Glucose (mg/dL) 150 mg/dL (65-110) H 03/13/18 11:16 Random Glucose 123 mg/dL (70-110) H 03/13/18 07:00 Hemoglobin A1c 4.9 % (4.2-6.5) 03/10/18 07:30 Calcium 8.2 mg/dL (8.4-10.5) L 03/13/18 07:00 Phosphorus 4.1 mg/dL (2.5-4.5) 03/08/18 06:30 Magnesium 1.4 mg/dL (1.7-2.2) L 03/09/18 09:05 Iron 57 ug/dL (45-180) 03/08/18 06:30 TIBC 235 ug/dL (265-497) L 03/08/18 06:30 % Saturation 24 % (20-55) 03/08/18 06:30 Ferritin 51.4 ng/mL 03/08/18 01:27 Total Bilirubin 0.8 mg/dL (0.2-1.3) 03/13/18 07:00 AST 80 U/L (14-36) H 03/13/18 07:00 ALT 21 U/L (7-56) 03/13/18 07:00 Alkaline Phosphatase 162 U/L (38-126) H 03/13/18 07:00 Troponin I < 0.01 ng/mL 03/10/18 08:40 NT-Pro-B Natriuret Pep 557 pg/mL (0-450) H 03/08/18 01:27 Total Protein 7.8 g/dL (5.8-8.3) 03/13/18 07:00 Albumin 2.8 g/dL (3.0-4.8) L 03/13/18 07:00 Globulin 5.0 gm/dL 03/13/18 07:00 Albumin/Globulin Ratio 0.6 (1.1-1.8) L 03/13/18 07:00 Vitamin B12 349 pg/mL (239-931) 03/08/18 01:27 Procalcitonin 0.35 NG/ML (0.19-0.49) 03/08/18 06:30 Venous Blood Potassium 2.9 mmol/L (3.6-5.2) L 03/07/18 20:00 Urine Color Yellow (YELLOW) 03/09/18 00:02 Urine Appearance Clear (CLEAR) 03/09/18 00:02 Urine pH 5.5 (4.7-8.0) 03/09/18 00:02 Ur Specific [place] 1.010 (1.005-1.035) 03/09/18 00:02 Urine Protein Negative mg/dL (<30 mg/dL) 03/09/18 00:02 Urine Glucose (UA) Negative mg/dL (NEGATIVE) 03/09/18 00:02 Urine Ketones Negative mg/dL (NEGATIVE) 03/09/18 00:02 Urine Blood Moderate (NEGATIVE) H 03/09/18 00:02 Urine Nitrate Negative (NEGATIVE) 03/09/18 00:02 Urine Bilirubin Negative (NEGATIVE) 03/09/18 00:02 Urine Urobilinogen 0.2 E.U./dL (<1 E.U./dL) 03/09/18 00:02 Ur Leukocyte Esterase Negative [place]/uL (NEGATIVE) 03/09/18 00:02 Urine RBC 2 - 5 /hpf (0-2) H 03/09/18 00:02 Urine WBC 0 - 2 /hpf (0-6) 03/09/18 00:02 Ur Epithelial Cells 0 - 2 /hpf (0-5) 03/09/18 00:02 Urine Bacteria Few /hpf (NONE) 03/09/18 00:02 Urine HCG, Qual Negative (NEGATIVE) 03/09/18 15:02 Urine Opiates Screen Positive (NEGATIVE) H 03/09/18 00:02 Urine Methadone Screen Negative (NEGATIVE) 03/09/18 00:02 Ur Barbiturates Screen Negative (NEGATIVE) 03/09/18 00:02 Ur Phencyclidine Scrn Negative (NEGATIVE) 03/09/18 00:02 Ur Amphetamines Screen Negative (NEGATIVE) 03/09/18 00:02 U Benzodiazepines Scrn Negative (NEGATIVE) 03/09/18 00:02 U Oth Cocaine Metabols Negative (NEGATIVE) 03/09/18 00:02 U Cannabinoids Screen Negative (NEGATIVE) 03/09/18 00:02 Alcohol, Quantitative < 10 mg/dL (0-10) 03/08/18 08:00 Hepatitis A IgM Ab Negative (NEGATIVE) 03/08/18 01:27 Hep Bs Antigen Negative (NEGATIVE) 03/08/18 01:27 Hep B Core IgM Ab Negative (NEGATIVE) 03/08/18 01:27 Hepatitis C Antibody Negative (NEGATIVE) 03/08/18 01:27 Blood Type O POSITIVE 03/07/18 22:24 Antibody Screen Negative 03/07/18 22:24 BBK History Checked Patient has bt 03/07/18 22:24 - Hospital Course Hospital Course: Upon Admission: 42F PMH of DM2 w/ neuropathy, Cirrhosis 2/2 EtOH Abuse, Hidradenitis Suppurativa, presented to [facility] on 01/11 w/ c/o BL edema/erythema x2 wks. Patient reported leg pain and swelling began 2 weeks ago before patient came up for holidays; did endorse a long train ride form [place] to [place]. Pt is visiting [place] from [place], where she lives normally. She reports that she took extra lasix dose which gave no relief to LE sypmtoms. She described erythema, warmth, and pain. Denies any fevers/chills, trauma to the area, new detergents, out doors activity, discharge. Patient reported some bleeding in her rectal area and noted that this has been chronic for her over the last few years. She reported that she's had surgeries in the past for perirectal abscess; she denied any blood BMs however appreciated blood on toilet paper while wiping. Hospital Course: Extremity ultrasound of the extremities were performed which revealed no evidence of DVT. Tibia/fibula xray revealed no acute fractures. Abdomen/Pelvis CT revealed hepatomegaly with heterogeneity of the parenchyma, fatty atrophy of the pancreas, splenomegaly, small abdominal/pelvic ascites, cholecystectomy, mild bibasilar atelectasis. Pt was evaluated by surgical team for evaluation of pilonidal cyst and reports no acute surgical intervention at the time. She was followed and dressings were changed. Pt was evaluated by ID for possible b/l LE cellulitis, she was not started on antibiotics as b/l LE swelling was likely 2/2 to lymphedema associated with liver cirrhosis. Pt treated with IV lasix throughout hospital course with improvement in swelling. She was transitioned to po lasix upon discharge. She was evaluated and treated by physical therapy, and was recommended physical therapy. Upon Discharge: Pt reports improvement in symptoms. She has been tolerating physical therapy well and is able to walk safely with rolling walker. Her vital signs are stable. Labs wnl. She is to be discharged with prescriptions for physical therapy, rolling walker along with home medications. She was given detailed instructions on follow-up and medication compliance. Discharge Exam - Head Exam Head Exam: NORMAL INSPECTION - Eye Exam Eye Exam: EOMI, Normal appearance - ENT Exam ENT Exam: Mucous Membranes Dry, Mucous Membranes Moist - Respiratory Exam Respiratory Exam: NORMAL BREATHING PATTERN, UNREMARKABLE - Cardiovascular Exam Cardiovascular Exam: REGULAR RHYTHM, +S1, +S2 - GI/Abdominal Exam GI & Abdominal Exam: Normal Bowel Sounds, Unremarkable - Extremities Exam Extremities exam: normal capillary refill, normal inspection, pedal pulses present - Back Exam Back exam: NORMAL INSPECTION - Neurological Exam Neurological exam: Alert, Oriented x3 - Psychiatric Exam Psychiatric exam: Normal Affect, Normal Mood - Skin Skin Exam: Dry, Intact, Warm Discharge Plan - Discharge Medications Prescriptions: Furosemide [Lasix] 20 mg PO BID 5 Days #10 tablet oxyCODONE/Acetaminophen [Percocet 5/325 mg Tab] 1 tab PO Q8H PRN 3 Days #9 tab PRN Reason: Pain, Severe (8-10) Spironolactone [Aldactone] 50 mg PO BID 5 Days #10 tablet - Follow Up Plan Condition: STABLE Disposition: HOME/ ROUTINE Instructions: Cellulitis (DC), Cellulitis (GEN), Acute Abdominal Pain (DC), Acute Abdominal Pain (GEN) Additional Instructions: You have an appointment at the [facility] on 03/15/18 at 3:30pm. Please bring a photo ID and insurance card with you to the appointment. Please arrive at least 15 minutes early to your appointment. Please bring all your hospital paperwork with you to the appointment. Please make sure to go to this appointment as you will need repeat blood work and refills on medications. Please discuss your enlarged liver with your primary care doctor. You may require a CAT scan of your liver Please follow up with general surgeon, Dr. Spears, within 3-5 days of being discharged from the hospital Please attend outpatient physical therapy; and please use your walker; as prescribed, we are giving you a written prescription. Please continue the medications that you were taking at home. Please discuss all your medications with your primary care doctor If your symptoms return, please visit the nearest emergency room Referrals: Viki Mallory MD [Medical Doctor] - Montez Spears MD [Staff Provider] -
== END 2018-03-13 18:29 | disposition home or self-care (01) | DRG 280 ==
LOC: ED 18:20 → ERH 23:05 → 2RSO 03-08 00:54 → 5RSO 03-10 15:07
PROVIDERS: ADMIT Hospitalist; ATTEND Internal Medicine
DX: K70.31 Alcoholic cirrhosis of liver with ascites (principal); I89.0 Lymphedema, not elsewhere classified; E11.40 Type 2 diabetes mellitus with diabetic neuropathy, unspecified; K86.89 Other specified diseases of pancreas; D64.9 Anemia, unspecified; I08.1 Rheumatic disorders of both mitral and tricuspid valves; F10.10 Alcohol abuse, uncomplicated; L05.01 Pilonidal cyst with abscess; E87.6 Hypokalemia; L73.2 Hidradenitis suppurativa; K21.9 Gastro-esophageal reflux disease without esophagitis; Z91.14 Patient's other noncompliance with medication regimen; Z98.84 Bariatric surgery status

== ENCOUNTER 2018-03-25 20:33 | Observation (INO) | payer SELFPAY ==
[2018-03-25 20:52] VITALS: BMI 43.6
--- NOTE | 2018-03-25 21:06 | ED PDOC ---
Arrival/HPI - General Chief Complaint: Abdominal Pain Time Seen by Provider: 03/25/18 20:58 Historian: Patient - History of Present Illness Narrative History of Present Illness (Text): 03/25/18 21:05 Jayshree Mccarthy is a 42 year old female, whose past medical history includes diabetes, diabetic neuropathy, liver cirrhosis secondary to alcohol abuse, hidradenitis suppurativa, gastric bypass, and cholecystectomy, who presents to the ED brought in by EMS complaining of fluid retention. Patient states she has been experiencing fluid retention to the abdominal wall with associated swelling and discomfort to her bilateral lower extremities. Patient also reports a subjective fever earlier in the day. Patient denies any fever, chills, chest pain, shortness of breath, nausea, vomiting, back pain, neck pain, headache, dizziness, or any other complaints. Symptom Onset: Gradual Symptom Course: Unchanged Activities at Onset: Light Context: Home Past Medical History - Provider Review Nursing Documentation Reviewed: Yes - Infectious Disease Hx of Infectious Diseases: None - Tetanus Immunization Tetanus Immunization: Unknown - Reproductive Menopause: Yes - Past Medical History Past Medical History: Non-Contributing - Cardiac Hx Cardiac Disorders: No - Pulmonary Hx Respiratory Disorders: No - Neurological Hx Neurological Disorder: No - HEENT Hx HEENT Disorder: No - Renal Hx Renal Disorder: No - Endocrine/Metabolic Hx Diabetes Mellitus Type 2: Yes - Hematological/Oncological Hx Blood Disorders: No - Integumentary Hx Dermatological Disorder: No - Musculoskeletal/Rheumatological Hx Falls: No - Gastrointestinal Hx Gastrointestinal Disorders: Yes Hx Gall Bladder Disease: Yes (cholecystectomy) Hx Gastroesophageal Reflux: Yes Hx Pancreatitis: Yes - Genitourinary/Gynecological Hx Genitourinary Disorders: No - Psychiatric Hx Psychophysiologic Disorder: Yes Hx Depression: Yes Hx Substance Use: No - Surgical History Hx Cholecystectomy: Yes (2005) Hx Gastric Bypass Surgery: Yes (2004) Other/Comment: left breast lumpectomy 2000, abscess removal 2016 - Anesthesia Hx Anesthesia: Yes Hx Anesthesia Reactions: No Hx Malignant Hyperthermia: No - Suicidal Assessment Feels Threatened In Home Enviroment: No Family/Social History - Physician Review Nursing Documentation Reviewed: Yes Family/Social History: Unknown Family HX Smoking Status: Never Smoked Hx Alcohol Use: No Hx Substance Use: No Hx Substance Use Treatment: No Allergies/Home Meds Allergies/Adverse Reactions: Allergies alprazolam [From Xanax] Allergy (Verified 11/05/16 17:22) SWELLING ceftaroline fosamil acetate [From Teflaro] Allergy (Verified 11/05/16 17:22) SWELLING shellfish derived Allergy (Verified 11/05/16 17:22) ANAPHYLAXIS Home Medications: Home Meds Medication Instructions Recorded Confirmed Gabapentin [Neurontin] 600 mg PO QID 03/07/18 03/07/18 Review of Systems - Physician Review All systems were reviewed & negative as marked: Yes - Review of Systems Constitutional: Fevers (+subjective fever) Eyes: Normal ENT: Normal Respiratory: Normal. absent: SOB, Cough Cardiovascular: Normal. absent: Chest Pain Gastrointestinal: Other (+abdominal wall fluid retention). absent: Diarrhea, Nausea, Vomiting Genitourinary Female: Normal. absent: Dysuria, Frequency, Hematuria, Urine Output Changes Musculoskeletal: Other (+swelling/pain to lower extremities). absent: Back Pain, Neck Pain Skin: Normal. absent: Rash Neurological: Normal. absent: Headache, Dizziness Endocrine: Normal Hemo/Lymphatic: Normal Psychiatric: Normal Physical Exam Vital Signs Reviewed: Yes Vital Signs Temp Pulse Resp BP Pulse Ox 03/25/18 20:52 98.5 F 98 H 20 145/97 H 97 Temperature: Afebrile Blood Pressure: Hypertensive Pulse: Regular Respiratory Rate: Normal Appearance: Positive for: Well-Appearing, Non-Toxic, Comfortable Pain Distress: None Mental Status: Positive for: Alert and Oriented X 3 - Systems Exam Head: Present: Atraumatic, Normocephalic Pupils: Present: PERRL Extroacular Muscles: Present: EOMI Conjunctiva: Present: Normal Mouth: Present: Moist Mucous Membranes Neck: Present: Normal Range of Motion Respiratory/Chest: Present: Clear to Auscultation, Good Air Exchange. No: Respiratory Distress, Accessory Muscle Use Cardiovascular: Present: Regular Rate and Rhythm, Normal S1, S2. No: Murmurs Abdomen: Present: Other (Pannus with erythema to abdominal wall). No: Tenderness, Distention, Peritoneal Signs Back: Present: Normal Inspection Upper Extremity: Present: Normal Inspection. No: Cyanosis, Edema Lower Extremity: Present: Edema ( edema bilaterally), Tenderness (Tenderness to lower extremities bilaterally), Erythema (Erythema to lower extremity bilaterally) Neurological: Present: GCS=15, CN II-XII Intact, Speech Normal Skin: Present: Warm, Dry, Normal Color. No: Rashes Psychiatric: Present: Alert, Oriented x 3, Normal Insight, Normal Concentration Medical Decision Making ED Course and Treatment: 03/25/18 21:05 Impression: 42 year old female complaining of fluid retention in abdominal wall and bilateral lower extremities. Plan: -- EKG -- Chest X-ray -- US Duplex Lower Extremities -- Labs, ammonia, lipase, blood cultures -- Reassess and disposition Prior Visits: Notes and results from previous visits were reviewed. Progress Notes: Reviewed EKG, NSR at [address] bpm[address] Non-specific ST/T wave changes. 03/25/18 23:37 US Duplex Lower Extremities preliminary read negative for DVT. Chest X-ray reviewed, shows no acute processes. 03/26/18 00:00 Case discussed with biomedical engineer stonecutter apprentice hand, who is aware and agrees with plan. Case discussed with Dr. Clinton, who is aware and agrees with plan. Accepts pt in to hospitalist service. Pt [facility] go to [facility] observation for cellulitis. - Lab Interpretations I have reviewed the lab results: Yes - RAD Interpretation Director Of Maternity Services: ED Physician - EKG Interpretation Interpreted by ED Physician: Yes Type: 12 lead EKG - Scribe Statement The provider has reviewed the documentation as recorded by the Krystal Cespedes Provider Scribe Attestation: All medical record entries made by the Scribe were at my direction and personally dictated by me. I have reviewed the chart and agree that the record accurately reflects my personal performance of the history, physical exam, medical decision making, and the department course for this patient. I have also personally directed, reviewed, and agree with the discharge instructions and disposition. Disposition/Present on Arrival - Present on Arrival Any Indicators Present on Arrival: No History of DVT/PE: No History of Uncontrolled Diabetes: No Urinary Catheter: No History of Decub. Ulcer: No History Surgical Site Infection Following: None - Disposition Have Diagnosis and Disposition been Completed?: Yes Diagnosis: Cellulitis, Lower extremity edema Disposition: HOSPITALIZED Disposition Time: 00:01 Condition: STABLE
[2018-03-25 22:18] LABS: HEMOGLOBIN 9.5 g/dL (12.0-16.0); MEAN CELL VOLUME 101.6 fl (80.0-105.0); MEAN CORPUSCULAR HEMOGLOBIN 30.8 pg (25.0-35.0); MEAN CORPUSCULAR HGB CONC 30.4 g/dl (31.0-37.0); MEAN PLATELET VOLUME 13.6 fl (7.0-11.0); RBC 3.08 10^6/uL (3.5-6.1); RED CELL DISTRIBUTION WIDTH 15.2 % (11.5-14.5); WHITE BLOOD COUNT 7.7 10^3/uL (4.5-11.0)
[2018-03-25 22:27] LABS: INR 1.4; PROTHROMBIN TIME 15.5 SECONDS (9.4-12.5)
[2018-03-25 23:42] LABS: ALB/GLOB RATIO 0.6 (1.1-1.8); ALBUMIN 3.2 g/dL (3.0-4.8); ALT/SGPT 20 U/L (7-56); AST/SGOT 56 U/L (14-36); BLOOD UREA NITROGEN 7 mg/dL (7-21); CALCIUM 8.6 mg/dL (8.4-10.5); GFR NON-AFRICAN AMERICAN > 60; LIPASE 30 U/L (23-300)
[2018-03-25] MEDS ORDERED: Vancomycin 1gm in NS 250ml 1 GM/250 ML BAG IVPB STA (23:54)
--- NOTE | 2018-03-26 00:11 | CP.PCM.HP ---
<LuisKeven - Last Filed: 03/26/18 02:00> History of Present Illness - History of Present Illness History of Present Illness: Keven Smith, PGY1 H&P for Dr. 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 Patient says she has been having pain in both of her lower extremities for 1 week in duration. In the ED, Vitals: Temp 98.5, HR 98, RR 20, BP 145/97, SaO2 97% (room air). Medical team was consulted for evaluation. Patient mentions that she has had bilateral lower extremity pain for x1 week duration. She has had a similar episode a few months back. Resting makes the pain worse and movement of the legs makes the pain better. She describes the pain as pins and needles like sensation. The pain is located at the lower legs with no radiation. At its worst it is rated a 9/10. Patient says the pain is often worse at night. Denies recent trauma to the leg. Patient has not noticed any purulent discharge from the legs. She also has some epigastric discomfort and had x3 episodes of diarrhea today. No recent antibiotic use. She has no sick contacts and has not traveled outside the country. Denies cp, sob, headache, fever, chills, nausea, vomiting, constipation, lightheadedness, dizziness, changes in vision. [place] [facility] [place] A full 12 point ROS was conducted and unremarkable except as stated above. 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 Patient lives with mom, visiting from [facility]. Not sexually active. No OCP use. FamHx: father and brother have hx of stroke, mother and sister have hx of HTN. No familial hx of cancer. Present on Admission - Present on Admission Any Indicators Present on Admission: No Review of Systems - Review of Systems All systems: reviewed and no additional remarkable complaints except (as per HPI) Past Patient History - Infectious Disease Hx of Infectious Diseases: None - Tetanus Immunizations Tetanus Immunization: Unknown - Past Medical History & Family History Past Medical History?: Yes - Past Social History Smoking Status: Never Smoked - CARDIAC Hx Cardiac Disorders: No - PULMONARY Hx Respiratory Disorders: No - NEUROLOGICAL Hx Neurological Disorder: No - HEENT Hx HEENT Problems: No - RENAL Hx Chronic Kidney Disease: No - ENDOCRINE/METABOLIC Hx Diabetes Mellitus Type 2: Yes - HEMATOLOGICAL/ONCOLOGICAL Hx Blood Disorders: No - INTEGUMENTARY Hx Dermatological Problems: No - MUSCULOSKELETAL/RHEUMATOLOGICAL Hx Falls: No - GASTROINTESTINAL Hx Gastrointestinal Disorders: Yes Hx Gall Bladder Disease: Yes (cholecystectomy) Hx Gastroesophageal Reflux: Yes Hx Pancreatitis: Yes - GENITOURINARY/GYNECOLOGICAL Hx Genitourinary Disorders: No - PSYCHIATRIC Hx Psychophysiologic Disorder: Yes Hx Depression: Yes Hx Substance Use: No - SURGICAL HISTORY Hx Cholecystectomy: Yes (2005) Hx Gastric Bypass Surgery: Yes (2004) Other/Comment: left breast lumpectomy 2000, abscess removal 2016 - ANESTHESIA Hx Anesthesia: Yes Hx Anesthesia Reactions: No Hx Malignant Hyperthermia: No Meds Allergies/Adverse Reactions: Allergies Allergy/AdvReac Type Severity Reaction Status Date / Time alprazolam [From Xanax] Allergy SWELLING Verified 11/05/16 17:22 ceftaroline fosamil acetate Allergy SWELLING Verified 11/05/16 17:22 [From Teflaro] shellfish derived Allergy ANAPHYLAXIS Verified 11/05/16 17:22 Physical Exam - Constitutional Appears: No Acute Distress - Head Exam Head Exam: ATRAUMATIC, NORMAL INSPECTION, NORMOCEPHALIC - Eye Exam Eye Exam: EOMI, Normal appearance. absent: Scleral icterus Pupil Exam: NORMAL ACCOMODATION, PERRL - ENT Exam ENT Exam: Mucous Membranes Moist, Normal Exam - Respiratory Exam Respiratory Exam: Clear to Auscultation Bilateral. absent: Accessory Muscle Use, Chest Wall Tenderness, Prolonged Expiratory Phase, Rales, Rhonchi, Wheezes, Respiratory Distress, Stridor - Cardiovascular Exam Cardiovascular Exam: RRR, +S1, +S2 - GI/Abdominal Exam GI & Abdominal Exam: Normal Bowel Sounds, Soft. absent: Firm, Guarding, Organomegaly, Rebound Additional comments: Obese abdomen - evidence of abdominal pannus. - Extremities Exam Extremities exam: Positive for: calf tenderness (Negative Heather's sign. ), full ROM, normal capillary refill, pedal edema (+1 pitting edema of the low ext bilaterally. ), tenderness (Bilateral lower extremity tenderness. Tender to palpation. ), pedal pulses present. Negative for: joint swelling Additional comments: 5/5 motor strength of all extremities. No evidence of rashes, bleeding, or pustular drainage. - Neurological Exam Neurological exam: Alert, CN II-XII Intact, Normal Gait, Oriented x3 - Psychiatric Exam Psychiatric exam: Normal Affect, Normal Mood - Skin Skin Exam: Dry, Intact, Warm Results - Vital Signs Recent Vital Signs: Last Vital Signs Temp 98.5 F 03/25/18 20:52 Pulse 98 H 03/25/18 20:52 Resp 20 03/25/18 20:52 BP 145/97 H 03/25/18 20:52 Pulse Ox 97 03/25/18 20:52 - Labs Result Diagrams: 03/25/18 22:12 03/25/18 23:10 Labs: Laboratory Results - last 24 hr 03/25/18 03/25/18 03/25/18 22:12 22:12 23:10 WBC 7.7 RBC 3.08 L Hgb 9.5 L Hct 31.3 L MCV 101.6 MCH 30.8 MCHC 30.4 L RDW 15.2 H Plt Count 135 MPV 13.6 H PT 15.5 H INR 1.40 APTT 27.0 Sodium 140 Potassium 4.1 Chloride 107 Carbon Dioxide 29 Anion Gap 9 L BUN 7 Creatinine 0.6 L Est GFR ( Amer) > 60 Est GFR (Non-Af Amer) > 60 Random Glucose 101 Calcium 8.6 Total Bilirubin 0.8 AST 56 H D ALT 20 Alkaline Phosphatase 142 H Ammonia Total Protein 8.7 H Albumin 3.2 Globulin 5.5 Albumin/Globulin Ratio 0.6 L Lipase 30 03/25/18 23:10 WBC RBC Hgb Hct MCV MCH MCHC RDW Plt Count MPV PT INR APTT Sodium Potassium Chloride Carbon Dioxide Anion Gap BUN Creatinine Est GFR ( Amer) Est GFR (Non-Af Amer) Random Glucose Calcium Total Bilirubin AST ALT Alkaline Phosphatase Ammonia 29 Total Protein Albumin Globulin Albumin/Globulin Ratio Lipase Assessment & Plan - Assessment and Plan (Free Text) Assessment: Patient is a 42 y/o female, whose PMHx includes DM II, diabetic neuropathy, liver cirrhosis secondary to alcohol abuse, hidradenitis suppurativa, morbid obesity, medication non-compliance who presents to the ED brought in by EMS complaining of bilateral leg pain. Patient will be admitted for intractable lower extremity pain possibly due to cellulitis vs worsening diabetic neuropathy. Plan: Intractable Lower Extremity Pain Possibly 2/2 Cellulitis vs Worsening Diabetic Neuropathy - started on vancomycin 1g daily - For neuropathic pain, c/w home med gabapentin 600mg PO QID - Extra-strength Tylenol 975 mg tablet given for pain control, given mild transaminitis - warm compress to lower extremities - elevate legs - cbc/cmp in AM - f/u blood cx done in ED - Hx of DM neuropathy Lower Extremity Swelling 2/2 Hx Liver Cirrohosis - Hx of former EtOH abuse - quit in August - c/w home med Lasix 20 mg PO BID - c/w home med Spironolactone 50 mg PO BID - seizure precautions given hx of EtOH abuse Hx DM II - Patient takes no medications for her DM - counseled on lifestyle modifications given her morbid obesity - Hgb A1c level - Accuchecks - ISS (low) - Hx of non-compliance as per prior documentation DVT ppx: hep sc GI ppx: PTX Diet: HHD (carb-consistent) Dispo: Patient will be monitored on the floor. Case was discussed and reviewed with Attending Physician, Dr. Clinton <Olinda Clinton - Last Filed: 03/26/18 03:49> Results - Vital Signs Recent Vital Signs: Last Vital Signs Temp 98.5 F 03/25/18 20:52 Pulse 98 H 03/25/18 20:52 Resp 20 03/25/18 20:52 BP 130/96 H 03/26/18 00:24 Pulse Ox 97 03/25/18 20:52 - Labs Result Diagrams: 03/25/18 22:12 03/25/18 23:10 Labs: Laboratory Results - last 24 hr 03/25/18 03/25/18 03/25/18 22:12 22:12 23:10 WBC 7.7 RBC 3.08 L Hgb 9.5 L Hct 31.3 L MCV 101.6 MCH 30.8 MCHC 30.4 L RDW 15.2 H Plt Count 135 MPV 13.6 H PT 15.5 H INR 1.40 APTT 27.0 Sodium 140 Potassium 4.1 Chloride 107 Carbon Dioxide 29 Anion Gap 9 L BUN 7 Creatinine 0.6 L Est GFR ( Amer) > 60 Est GFR (Non-Af Amer) > 60 Random Glucose 101 Calcium 8.6 Total Bilirubin 0.8 AST 56 H D ALT 20 Alkaline Phosphatase 142 H Ammonia Total Protein 8.7 H Albumin 3.2 Globulin 5.5 Albumin/Globulin Ratio 0.6 L Lipase 30 03/25/18 23:10 WBC RBC Hgb Hct MCV MCH MCHC RDW Plt Count MPV PT INR APTT Sodium Potassium Chloride Carbon Dioxide Anion Gap BUN Creatinine Est GFR ( Amer) Est GFR (Non-Af Amer) Random Glucose Calcium Total Bilirubin AST ALT Alkaline Phosphatase Ammonia 29 Total Protein Albumin Globulin Albumin/Globulin Ratio Lipase Attending/Attestation - Attestation I have personally seen and examined this patient.: Yes I have fully participated in the care of the patient.: Yes I have reviewed all pertinent clinical information: Yes Notes (Text): 03/26/18 03:48 Patient was seen when she was in the ER room # 15. Medical record was reviewed. Agree with history , physical examination, assessment and plan.
[2018-03-26 05:13] VITALS: RESP 18
[2018-03-26] MEDS: Pantoprazole 40 mg EC Tab PO SCH ×2 (05:41→09:43)
[2018-03-26 07:14] LABS: HEMOGLOBIN 9.4 g/dL (12.0-16.0); MEAN CELL VOLUME 101.7 fl (80.0-105.0); MEAN CORPUSCULAR HEMOGLOBIN 31.3 pg (25.0-35.0); MEAN CORPUSCULAR HGB CONC 30.8 g/dl (31.0-37.0); MEAN PLATELET VOLUME 13.8 fl (7.0-11.0); WHITE BLOOD COUNT 7.4 10^3/uL (4.5-11.0)
[2018-03-26 07:18] LABS: ALB/GLOB RATIO 0.6 (1.1-1.8); ALBUMIN 3.4 g/dL (3.0-4.8); ALT/SGPT 15 U/L (7-56); AST/SGOT 59 U/L (14-36); BLOOD UREA NITROGEN 7 mg/dL (7-21); CALCIUM 8.7 mg/dL (8.4-10.5); GFR NON-AFRICAN AMERICAN > 60
[2018-03-26] MEDS: Insulin Lispro (humaLOG) LOW Coverage SC SCH ×4 (08:00→21:46)
[2018-03-26 08:36] LABS: IRON 40 ug/dL (45-180)
[2018-03-26 08:45] LABS: % IRON SATURATION 14 % (20-55); TOTAL IRON BINDING CAPACITY 284 ug/dL (265-497)
--- NOTE | 2018-03-26 09:57 | CP.PCM.CON ---
<Rios Allen - Last Filed: 03/26/18 14:09> History of Present Illness - History of Present Illness History of Present Illness: ID Consult Note 42 year old female with past medical history of DM2, cirrhosis secondary to alcohol abuse, DM2 and hidradentitis suppurativa presents for worsening leg pain and edema. Patient states she chronically has leg pain, but has gotten worse over the last several days. Patient also admits to feeling lightheaded intermittently over the last day. Patient was making a sandwich when she felt dizzy, so her mother called EMS. Patient was recently admitted for leg pain and was thought to not have cellulitis at this time. Denies chest pain, nausea, vomiting, diarrhea, fever, chills. Admits to chronic numbness in toes and and burning pain in legs. Medical Hx: DM2, cirrhosis, and hidradentitis suppurativa Surgical Hx: Gastric Bypass, Cholecystectomy, L Breast lumpectomy, Rectal Abscess I+D, Rectal cyst removal Allergies: Xanax, Ceftaroline, Shellfish allergies Social Hx: Former alcohol use. Denies tobacco or illicit drug use Family Hx: CVA, HTN, DM Medications: Reviewed, as per MAR Review of Systems - Review of Systems Review of Systems: 12 point ROS as per HPI, otherwise negative Past Patient History - Infectious Disease Hx of Infectious Diseases: None - Tetanus Immunizations Tetanus Immunization: Unknown - Past Medical History & Family History Past Medical History?: Yes - Past Social History Smoking Status: Never Smoked - CARDIAC Hx Cardiac Disorders: No - PULMONARY Hx Respiratory Disorders: No - NEUROLOGICAL Hx Neurological Disorder: No Hx Dizziness: Yes - HEENT Hx HEENT Problems: No - RENAL Hx Chronic Kidney Disease: No - ENDOCRINE/METABOLIC Hx Diabetes Mellitus Type 2: Yes (Borderline DM) - HEMATOLOGICAL/ONCOLOGICAL Hx Blood Disorders: No Hx Cirrhosis: Yes (of liver) - INTEGUMENTARY Hx Dermatological Problems: No - MUSCULOSKELETAL/RHEUMATOLOGICAL Hx Back Pain: Yes Hx Falls: Yes Hx Fractures: Yes (compression fracture on back) Hx Unsteady Gait: Yes - GASTROINTESTINAL Hx Gastrointestinal Disorders: Yes Hx Gall Bladder Disease: Yes (cholecystectomy) Hx Gastroesophageal Reflux: Yes Hx Pancreatitis: Yes - GENITOURINARY/GYNECOLOGICAL Hx Genitourinary Disorders: No - PSYCHIATRIC Hx Psychophysiologic Disorder: Yes Hx Anxiety: Yes Hx Depression: Yes - SURGICAL HISTORY Hx Surgeries: Yes Hx Cholecystectomy: Yes (2005) Hx Gastric Bypass Surgery: Yes (2004) Other/Comment: left breast lumpectomy 2001, abscess removal 2016 - ANESTHESIA Hx Anesthesia: Yes Hx Anesthesia Reactions: No Hx Malignant Hyperthermia: No Meds Allergies/Adverse Reactions: Allergies Allergy/AdvReac Type Severity Reaction Status Date / Time alprazolam [From Xanax] Allergy SWELLING Verified 11/05/16 17:22 ceftaroline fosamil acetate Allergy SWELLING Verified 11/05/16 17:22 [From Teflaro] shellfish derived Allergy ANAPHYLAXIS Verified 11/05/16 17:22 - Medications Medications: Current Medications Furosemide (Lasix) 20 mg PO BID [facility] Last Admin: 03/26/18 09:42 Dose: 20 mg Gabapentin (Neurontin) 600 mg PO QID [facility]; Protocol Last Admin: 03/26/18 09:42 Dose: 600 mg Heparin Sodium (Porcine) (Heparin) 5,000 units SC Q8 [facility]; Protocol Last Admin: 03/26/18 05:41 Dose: Not Given Vancomycin HCl (Vancomycin 1gm) 1 gm in 250 mls @ 167 mls/hr IVPB DAILY [facility]; Protocol Last Admin: 03/26/18 09:43 Dose: 167 mls/hr Ibuprofen (Motrin Tab) 400 mg PO Q6H PRN PRN Reason: Pain, moderate (4-7) Last Admin: 03/26/18 04:51 Dose: 400 mg Insulin Human Lispro (Humalog Low) 0 units SC ACHS [facility]; Protocol Last Admin: 03/26/18 08:00 Dose: Not Given Pantoprazole Sodium (Protonix Ec Tab) 40 mg PO 0600 [facility] Last Admin: 03/26/18 09:43 Dose: 40 mg Spironolactone (Aldactone) 50 mg PO BID [facility] Last Admin: 03/26/18 09:42 Dose: 50 mg Physical Exam - Constitutional Appears: Non-toxic, No Acute Distress Additional comments: Obese - Head Exam Head Exam: ATRAUMATIC, NORMAL INSPECTION, NORMOCEPHALIC - Eye Exam Eye Exam: EOMI, Normal appearance - ENT Exam ENT Exam: Mucous Membranes Moist - Respiratory Exam Respiratory Exam: Clear to Auscultation Bilateral, NORMAL BREATHING PATTERN - Cardiovascular Exam Cardiovascular Exam: RRR, +S1, +S2 - GI/Abdominal Exam GI & Abdominal Exam: Normal Bowel Sounds, Soft. absent: Tenderness - Extremities Exam Extremities exam: Positive for: tenderness (Anterior legs b/l) Additional comments: +1 pitting edema b/l - Neurological Exam Neurological exam: Alert, Oriented x3 - Skin Skin Exam: Dry, Intact, Warm Results - Vital Signs Recent Vital Signs: Last Vital Signs Temp 98 F 03/26/18 06:00 Pulse 86 03/26/18 06:00 Resp 18 03/26/18 06:00 BP 140/76 03/26/18 09:42 Pulse Ox 96 03/26/18 06:00 - Labs Result Diagrams: 03/26/18 06:20 03/26/18 06:20 Labs: Laboratory Results - last 24 hr 03/25/18 03/25/18 03/25/18 22:12 22:12 23:10 WBC 7.7 RBC 3.08 L Hgb 9.5 L Hct 31.3 L MCV 101.6 MCH 30.8 MCHC 30.4 L RDW 15.2 H Plt Count 135 MPV 13.6 H Retic Count PT 15.5 H INR 1.40 APTT 27.0 Sodium 140 Potassium 4.1 Chloride 107 Carbon Dioxide 29 Anion Gap 9 L BUN 7 Creatinine 0.6 L Est GFR ( Amer) > 60 Est GFR (Non-Af Amer) > 60 POC Glucose (mg/dL) Random Glucose 101 Calcium 8.6 Iron TIBC % Saturation Total Bilirubin 0.8 AST 56 H D ALT 20 Alkaline Phosphatase 142 H Ammonia Total Protein 8.7 H Albumin 3.2 Globulin 5.5 Albumin/Globulin Ratio 0.6 L Lipase 30 Alcohol, Quantitative 03/25/18 03/26/18 03/26/18 23:10 06:20 06:20 WBC 7.4 RBC 3.00 L Hgb 9.4 L Hct 30.5 L MCV 101.7 MCH 31.3 MCHC 30.8 L RDW 15.0 H Plt Count 123 MPV 13.8 H Retic Count PT INR APTT Sodium 140 Potassium 3.7 Chloride 107 Carbon Dioxide 28 Anion Gap 9 L BUN 7 Creatinine 0.6 L Est GFR ( Amer) > 60 Est GFR (Non-Af Amer) > 60 POC Glucose (mg/dL) Random Glucose 107 Calcium 8.7 Iron TIBC % Saturation Total Bilirubin 0.9 AST 59 H ALT 15 Alkaline Phosphatase 143 H Ammonia 29 Total Protein 9.1 H Albumin 3.4 Globulin 5.7 Albumin/Globulin Ratio 0.6 L Lipase Alcohol, Quantitative 03/26/18 03/26/18 03/26/18 06:31 08:10 08:10 WBC RBC Hgb Hct MCV MCH MCHC RDW Plt Count MPV Retic Count 1.96 H PT INR APTT Sodium Potassium Chloride Carbon Dioxide Anion Gap BUN Creatinine Est GFR ( Amer) Est GFR (Non-Af Amer) POC Glucose (mg/dL) 95 Random Glucose Calcium Iron 40 L TIBC 284 % Saturation 14 L Total Bilirubin AST ALT Alkaline Phosphatase Ammonia Total Protein Albumin Globulin Albumin/Globulin Ratio Lipase Alcohol, Quantitative 03/26/18 08:10 WBC RBC Hgb Hct MCV MCH MCHC RDW Plt Count MPV Retic Count PT INR APTT Sodium Potassium Chloride Carbon Dioxide Anion Gap BUN Creatinine Est GFR ( Amer) Est GFR (Non-Af Amer) POC Glucose (mg/dL) Random Glucose Calcium Iron TIBC % Saturation Total Bilirubin AST ALT Alkaline Phosphatase Ammonia Total Protein Albumin Globulin Albumin/Globulin Ratio Lipase Alcohol, Quantitative < 10 Assessment & Plan - Assessment and Plan (Free Text) Plan: Chronic lymphadema Hx of Perianal abscess Hx of DM2 Hx of cirrhosis Hx of Hidradentitis Suppurativa Plan: Leg pain likely secondary to worsening chronic lymphadema No evidence of acute infection Continue to monitor off of antibiotics Consider increase in neuropathic pain medication Tiffany, PGY-3 <Chucho Guevara S - Last Filed: 03/26/18 14:16> Meds - Medications Medications: Current Medications Furosemide (Lasix) 20 mg PO BID [facility] Last Admin: 03/26/18 09:42 Dose: 20 mg Gabapentin (Neurontin) 600 mg PO QID [facility]; Protocol Last Admin: 03/26/18 09:42 Dose: 600 mg Heparin Sodium (Porcine) (Heparin) 5,000 units SC Q8 [id number]; Protocol Last Admin: 03/26/18 05:41 Dose: Not Given Ibuprofen (Motrin Tab) 400 mg PO Q6H PRN PRN Reason: Pain, moderate (4-7) Last Admin: 03/26/18 04:51 Dose: 400 mg Insulin Human Lispro (Humalog Low) 0 units SC ACHS [facility]; Protocol Last Admin: 03/26/18 11:43 Dose: Not Given Pantoprazole Sodium (Protonix Ec Tab) 40 mg PO 0600 [facility] Last Admin: 03/26/18 09:43 Dose: 40 mg Spironolactone (Aldactone) 50 mg PO BID [facility] Last Admin: 03/26/18 09:42 Dose: 50 mg Results - Vital Signs Recent Vital Signs: Last Vital Signs Temp 98 F 03/26/18 06:00 Pulse 86 03/26/18 06:00 Resp 18 03/26/18 06:00 BP 140/76 03/26/18 09:42 Pulse Ox 96 03/26/18 06:00 - Labs Result Diagrams: 03/26/18 06:20 03/26/18 06:20 Labs: Laboratory Results - last 24 hr 03/25/18 03/25/18 03/25/18 22:12 22:12 23:10 WBC 7.7 RBC 3.08 L Hgb 9.5 L Hct 31.3 L MCV 101.6 MCH 30.8 MCHC 30.4 L RDW 15.2 H Plt Count 135 MPV 13.6 H Retic Count PT 15.5 H INR 1.40 APTT 27.0 Sodium 140 Potassium 4.1 Chloride 107 Carbon Dioxide 29 Anion Gap 9 L BUN 7 Creatinine 0.6 L Est GFR ( Amer) > 60 Est GFR (Non-Af Amer) > 60 POC Glucose (mg/dL) Random Glucose 101 Hemoglobin A1c Calcium 8.6 Iron TIBC % Saturation Transferrin Ferritin Total Bilirubin 0.8 AST 56 H D ALT 20 Alkaline Phosphatase 142 H Ammonia Total Protein 8.7 H Albumin 3.2 Globulin 5.5 Albumin/Globulin Ratio 0.6 L Lipase 30 Vitamin B12 Folate Alcohol, Quantitative 03/25/18 03/26/18 03/26/18 23:10 06:20 06:20 WBC 7.4 RBC 3.00 L Hgb 9.4 L Hct 30.5 L MCV 101.7 MCH 31.3 MCHC 30.8 L RDW 15.0 H Plt Count 123 MPV 13.8 H Retic Count PT INR APTT Sodium 140 Potassium 3.7 Chloride 107 Carbon Dioxide 28 Anion Gap 9 L BUN 7 Creatinine 0.6 L Est GFR ( Amer) > 60 Est GFR (Non-Af Amer) > 60 POC Glucose (mg/dL) Random Glucose 107 Hemoglobin A1c Calcium 8.7 Iron TIBC % Saturation Transferrin Ferritin Total Bilirubin 0.9 AST 59 H ALT 15 Alkaline Phosphatase 143 H Ammonia 29 Total Protein 9.1 H Albumin 3.4 Globulin 5.7 Albumin/Globulin Ratio 0.6 L Lipase Vitamin B12 Folate Alcohol, Quantitative 03/26/18 03/26/18 03/26/18 06:20 06:31 08:10 WBC RBC Hgb Hct MCV MCH MCHC RDW Plt Count MPV Retic Count PT INR APTT Sodium Potassium Chloride Carbon Dioxide Anion Gap BUN Creatinine Est GFR ( Amer) Est GFR (Non-Af Amer) POC Glucose (mg/dL) 95 Random Glucose Hemoglobin A1c 4.6 Calcium Iron 40 L TIBC 284 % Saturation 14 L Transferrin Ferritin Total Bilirubin AST ALT Alkaline Phosphatase Ammonia Total Protein Albumin Globulin Albumin/Globulin Ratio Lipase Vitamin B12 Folate Alcohol, Quantitative 03/26/18 03/26/18 03/26/18 08:10 08:10 08:10 WBC RBC Hgb Hct MCV MCH MCHC RDW Plt Count MPV Retic Count 1.96 H PT INR APTT Sodium Potassium Chloride Carbon Dioxide Anion Gap BUN Creatinine Est GFR ( Amer) Est GFR (Non-Af Amer) POC Glucose (mg/dL) Random Glucose Hemoglobin A1c Calcium Iron TIBC % Saturation Transferrin 208.84 Ferritin 28.8 Total Bilirubin AST ALT Alkaline Phosphatase Ammonia Total Protein Albumin Globulin Albumin/Globulin Ratio Lipase Vitamin B12 320 Folate 4.1 Alcohol, Quantitative 03/26/18 08:10 WBC RBC Hgb Hct MCV MCH MCHC RDW Plt Count MPV Retic Count PT INR APTT Sodium Potassium Chloride Carbon Dioxide Anion Gap BUN Creatinine Est GFR ( Amer) Est GFR (Non-Af Amer) POC Glucose (mg/dL) Random Glucose Hemoglobin A1c Calcium Iron TIBC % Saturation Transferrin Ferritin Total Bilirubin AST ALT Alkaline Phosphatase Ammonia Total Protein Albumin Globulin Albumin/Globulin Ratio Lipase Vitamin B12 Folate Alcohol, Quantitative < 10 Assessment & Plan - Assessment and Plan (Free Text) Plan: Infectious diseases Attending Physician Attestation Patient seen and examined, discussed with medical records coder. I have reviewed the patient's history of present illness, past medical, social, personal and family histories, pertinent physical exam findings, course so far in this hospital admission, pertinent laboratory and imaging results. I agree with the above findings, assessment and plan. In addition, will monitor off antibiotics - patient with leg swelling probably due to CHF and chronic lymphedema.
[2018-03-26] MEDS ORDERED: Vancomycin 1gm in NS 250ml 1 GM/250 ML BAG IVPB SCH (10:00)
--- NOTE | 2018-03-26 11:00 | CARD ---
APPROVED REPORT Date of service: 03/25/2018 EKG Measurement Heart [id number] <Conclusion> Normal sinus rhythm Possible Left atrial enlargement Possible Anterior infarct, age undetermined Base line artefact Abnormal ECG
[2018-03-26 13:08] LABS: FERRITIN 28.8 ng/mL
[2018-03-26 13:38] LABS: FOLATE 4.1 ng/mL
--- NOTE | 2018-03-26 14:19 | RAD ---
Date of service: 03/25/2018 HISTORY: fever COMPARISON: 11/05/2016. CT pulmonary angiogram. 03/10/2018 CT pulmonary angiogram. 11/05/2016 single-view chest FINDINGS: LUNGS: No active pulmonary disease. PLEURA: No significant pleural effusion identified, no pneumothorax apparent. CARDIOVASCULAR: No atherosclerotic calcification present Normal. OSSEOUS STRUCTURES: No significant abnormalities. VISUALIZED UPPER ABDOMEN: Normal. OTHER FINDINGS: None. IMPRESSION: No active disease. No significant interval change compared to the prior examination(s).
--- NOTE | 2018-03-26 20:24 | US ---
HISTORY: Leg pain and swelling. Evaluate for DVT PHYSICIAN(S): Sven Owusu MD. TECHNIQUE: Duplex sonography and color-flow Doppler with graded compression were used to evaluate the deep venous systems of both lower extremities. The exam is limited by edema. The tibial veins are not well seen FINDINGS: The visualized deep venous systems of both lower extremities are sonographically normal and compressible. Normal wave forms and augmentation are seen. There is no sonographic evidence for deep venous thrombosis in the visualized segments of both lower extremities. IMPRESSION: No sonographic evidence for deep venous thrombosis in the visualized segments of both lower extremities.
[2018-03-27] MEDS: Pantoprazole 40 mg EC Tab PO SCH (05:59)
[2018-03-27] MEDS: Insulin Lispro (humaLOG) LOW Coverage SC SCH ×2 (08:12→12:13)
[2018-03-27 08:41] LABS: BASO # 0.01 K/mm3 (0.0-2.0); BASO % 0.2 % (0.0-3.0); EOS # 0.1 (0.0-0.7); EOS % 1.8 % (1.5-5.0); HEMOGLOBIN 9.1 g/dL (12.0-16.0); LYMPH % 16.7 % (22.0-35.0); MEAN CORPUSCULAR HEMOGLOBIN 30.5 pg (25.0-35.0); MEAN CORPUSCULAR HGB CONC 30.2 g/dl (31.0-37.0); MONO # 0.3 (0.1-0.6); MONO % 4.5 % (1.0-6.0); PLATELET COUNT 103 10^3/uL (120.0-450.0); RBC 2.98 10^6/uL (3.5-6.1); WHITE BLOOD COUNT 6.2 10^3/uL (4.5-11.0)
[2018-03-27 08:46] VITALS: PULSE 106; TEMP 98; O2SAT 93
[2018-03-27 08:51] LABS: ALB/GLOB RATIO 0.6 (1.1-1.8); ALBUMIN 3.4 g/dL (3.0-4.8); ALT/SGPT 18 U/L (7-56); AST/SGOT 50 U/L (14-36); BLOOD UREA NITROGEN 7 mg/dL (7-21); CALCIUM 8.6 mg/dL (8.4-10.5); GFR NON-AFRICAN AMERICAN > 60
--- NOTE | 2018-03-27 11:07 | CP.PCM.PN ---
<Rios Allen - Last Filed: 03/27/18 13:31> Subjective - Date & Time of Evaluation Date of Evaluation: 03/27/18 Time of Evaluation: 09:00 - Subjective Subjective: ID Progress Note Patient seen and examined. Patient admits to increased leg pain overnight and trouble sleeping. Denies fevers, chills. Objective - Vital Signs/Intake and Output Vital Signs (last 24 hours): Temp Pulse Resp BP Pulse Ox 98 F 106 H 18 136/91 H 93 L 03/27/18 06:00 03/27/18 06:00 03/27/18 06:00 03/27/18 06:00 03/27/18 06:00 Intake and Output: 03/27/18 03/27/18 06:59 18:59 Intake Total 900 Balance 900 - Medications Medications: Current Medications Docusate Sodium (Colace) 100 mg PO DAILY [facility] Ferrous Sulfate (Feosol) 324 mg PO TID [facility] Furosemide (Lasix) 20 mg PO BID [facility] Last Admin: 03/26/18 19:51 Dose: 20 mg Gabapentin (Neurontin) 600 mg PO QID [facility]; Protocol Last Admin: 03/26/18 21:38 Dose: 600 mg Heparin Sodium (Porcine) (Heparin) 5,000 units SC Q8 [id number]; Protocol Last Admin: 03/27/18 05:59 Dose: 5,000 units Ibuprofen (Motrin Tab) 400 mg PO Q6H PRN PRN Reason: Pain, moderate (4-7) Last Admin: 03/26/18 16:49 Dose: 400 mg Insulin Human Lispro (Humalog Low) 0 units SC ACHS [facility]; Protocol Last Admin: 03/26/18 21:46 Dose: Not Given Pantoprazole Sodium (Protonix Ec Tab) 40 mg PO 0600 [facility] Last Admin: 03/27/18 05:59 Dose: 40 mg Spironolactone (Aldactone) 50 mg PO BID [facility] Last Admin: 03/26/18 19:51 Dose: 50 mg Tramadol HCl (Ultram) 50 mg PO ONCE ONE Stop: 03/27/18 22:11 - Labs Labs: 03/27/18 08:30 03/27/18 08:30 PT 15.5 SECONDS (9.4-12.5) H 03/25/18 22:12 INR 1.40 03/25/18 22:12 APTT 27.0 Seconds (26.9-38.3) 03/25/18 22:12 - Constitutional Appears: Non-toxic, No Acute Distress - Head Exam Head Exam: ATRAUMATIC, NORMAL INSPECTION, NORMOCEPHALIC - ENT Exam ENT Exam: Mucous Membranes Moist - Respiratory Exam Respiratory Exam: Clear to Ausculation Bilateral, NORMAL BREATHING PATTERN - Cardiovascular Exam Cardiovascular Exam: RRR, +S1, +S2 - GI/Abdominal Exam GI & Abdominal Exam: Soft, Normal Bowel Sounds. absent: Tenderness - Extremities Exam Extremities Exam: Pedal Edema (+1 b/l) - Neurological Exam Neurological Exam: Alert, Awake, Oriented x3 - Psychiatric Exam Psychiatric exam: Normal Affect - Skin Skin Exam: Intact, Normal Color, Warm Assessment and Plan - Assessment and Plan (Free Text) Plan: Chronic lymphadema Hx of Perianal abscess Hx of DM2 Hx of cirrhosis Hx of Hidradentitis Suppurativa Plan: Leg pain likely secondary to worsening chronic lymphadema No evidence of acute infection Continue to monitor off of antibiotics Tiffany PGY-3 <Chucho Guevara - Last Filed: 03/27/18 14:39> Objective - Vital Signs/Intake and Output Vital Signs (last 24 hours): Temp Pulse Resp BP Pulse Ox 98 F 106 H 18 130/90 93 L 03/27/18 06:00 03/27/18 06:00 03/27/18 06:00 03/27/18 11:56 03/27/18 06:00 Intake and Output: 03/27/18 03/27/18 06:59 18:59 Intake Total 900 Balance 900 - Medications Medications: Current Medications Docusate Sodium (Colace) 100 mg PO DAILY [facility] Last Admin: 03/27/18 11:57 Dose: 100 mg Ferrous Sulfate (Feosol) 324 mg PO TID [facility] Furosemide (Lasix) 20 mg PO BID [facility] Last Admin: 03/27/18 11:56 Dose: 20 mg Gabapentin (Neurontin) 600 mg PO QID [facility]; Protocol Last Admin: 03/27/18 11:56 Dose: 600 mg Heparin Sodium (Porcine) (Heparin) 5,000 units SC Q8 [facility]; Protocol Last Admin: 03/27/18 05:59 Dose: 5,000 units Ibuprofen (Motrin Tab) 400 mg PO Q6H PRN PRN Reason: Pain, moderate (4-7) Last Admin: 03/26/18 16:49 Dose: 400 mg Insulin Human Lispro (Humalog Low) 0 units SC [facility]; Protocol Last Admin: 03/27/18 12:13 Dose: Not Given Pantoprazole Sodium (Protonix Ec Tab) 40 mg PO 0600 [facility] Last Admin: 03/27/18 05:59 Dose: 40 mg Spironolactone (Aldactone) 50 mg PO BID [facility] Last Admin: 03/27/18 11:57 Dose: 50 mg - Labs Labs: 03/27/18 08:30 03/27/18 08:30 PT 15.5 SECONDS (9.4-12.5) H 03/25/18 22:12 INR 1.40 03/25/18 22:12 APTT 27.0 Seconds (26.9-38.3) 03/25/18 22:12 Assessment and Plan - Assessment and Plan (Free Text) Plan: Infectious diseases Attending Physician Attestation Patient seen and examined, discussed with medical record retrieval specialist. I have reviewed the patient's history of present illness, past medical, social, personal and family histories, pertinent physical exam findings, course so far in this hospital admission, pertinent laboratory and imaging results. I agree with the above findings, assessment and plan. In addition, patient with chronic lymphedema, no evidence of cellulitis. Monitor off antibiotics.
[2018-03-27 12:00] VITALS: BP 130/90
--- NOTE | 2018-03-27 12:30 | CP.PCM.DIS ---
<WaylonSidney umaña - Last Filed: 03/27/18 22:42> Provider - Provider Date of Admission: 03/26/18 00:02 Attending physician: Rita Warren MD Consults: 03/26/18 08:09 Infectious Disease Consult Routine Comment: Consulting Provider: Chucho Guevara Consulting Physician: Chucho Guevara Reason for Consult: Possible cellulitis B/L mejias and back of thigh Time Spent in preparation of Discharge (in minutes): 45 Diagnosis - Discharge Diagnosis (1) Bilateral leg edema Status: Acute (2) Neuropathy Status: Acute (3) Lower extremity edema Status: Chronic Hospital Course - Lab Results Lab Results: Micro Results 03/25/18 23:00 Blood Blood Culture - Preliminary NO GROWTH AFTER 24 HOURS 03/25/18 22:15 Blood Blood Culture - Preliminary NO GROWTH AFTER 24 HOURS Most Recent Lab Values WBC 6.2 10^3/uL (4.5-11.0) 03/27/18 08:30 RBC 2.98 10^6/uL (3.5-6.1) L 03/27/18 08:30 Hgb 9.1 g/dL (12.0-16.0) L 03/27/18 08:30 Hct 30.1 % (36.0-48.0) L 03/27/18 08:30 MCV 101.0 fl (80.0-105.0) 03/27/18 08:30 MCH 30.5 pg (25.0-35.0) 03/27/18 08:30 MCHC 30.2 g/dl (31.0-37.0) L 03/27/18 08:30 RDW 15.0 % (11.5-14.5) H 03/27/18 08:30 Plt Count 103 10^3/uL (120.0-450.0) L 03/27/18 08:30 MPV 13.8 fl (7.0-11.0) H 03/26/18 06:20 Neut % (Auto) 76.8 % (50.0-68.0) H 03/27/18 08:30 Lymph % (Auto) 16.7 % (22.0-35.0) L 03/27/18 08:30 [place] % (Auto) 4.5 % (1.0-6.0) 03/27/18 08:30 Eos % (Auto) 1.8 % (1.5-5.0) 03/27/18 08:30 Baso % (Auto) 0.2 % (0.0-3.0) 03/27/18 08:30 Lymph # (Auto) 1.0 (1.2-3.4) L 03/27/18 08:30 [place] # (Auto) 0.3 (0.1-0.6) 03/27/18 08:30 Eos # (Auto) 0.1 (0.0-0.7) 03/27/18 08:30 Baso # (Auto) 0.01 K/mm3 (0.0-2.0) 03/27/18 08:30 Absolute Neuts (auto) 4.80 (1.4-6.5) 03/27/18 08:30 Retic Count 1.96 % (0.5-1.5) H 03/26/18 08:10 PT 15.5 SECONDS (9.4-12.5) H 03/25/18 22:12 INR 1.40 03/25/18 22:12 APTT 27.0 Seconds (26.9-38.3) 03/25/18 22:12 Sodium 138 mmol/L (132-148) 03/27/18 08:30 Potassium 3.6 mmol/L (3.6-5.0) 03/27/18 08:30 Chloride 104 mmol/L (98-107) 03/27/18 08:30 Carbon Dioxide 30 mmol/L (21-33) 03/27/18 08:30 Anion Gap 8 (10-20) L 03/27/18 08:30 BUN 7 mg/dL (7-21) 03/27/18 08:30 Creatinine 0.6 mg/dl (0.7-1.2) L 03/27/18 08:30 Est GFR ( Amer) > 60 03/27/18 08:30 Est GFR (Non-Af Amer) > 60 03/27/18 08:30 POC Glucose (mg/dL) 118 mg/dL (65-110) H 03/26/18 21:03 Random Glucose 170 mg/dL (70-110) H 03/27/18 08:30 Hemoglobin A1c 4.6 % (4.2-6.5) 03/26/18 06:20 Calcium 8.6 mg/dL (8.4-10.5) 03/27/18 08:30 Iron 40 ug/dL (45-180) L 03/26/18 08:10 TIBC 284 ug/dL (265-497) 03/26/18 08:10 % Saturation 14 % (20-55) L 03/26/18 08:10 Transferrin 208.84 mg/dL (206-381) 03/26/18 08:10 Ferritin 28.8 ng/mL 03/26/18 08:10 Total Bilirubin 0.8 mg/dL (0.2-1.3) 03/27/18 08:30 AST 50 U/L (14-36) H 03/27/18 08:30 ALT 18 U/L (7-56) 03/27/18 08:30 Alkaline Phosphatase 122 U/L (38-126) 03/27/18 08:30 Ammonia 29 umol/L (9-33) 03/25/18 23:10 Total Protein 9.0 g/dL (5.8-8.3) H 03/27/18 08:30 Albumin 3.4 g/dL (3.0-4.8) 03/27/18 08:30 Globulin 5.7 gm/dL 03/27/18 08:30 Albumin/Globulin Ratio 0.6 (1.1-1.8) L 03/27/18 08:30 Lipase 30 U/L (23-300) 03/25/18 23:10 Vitamin B12 320 pg/mL (239-931) 03/26/18 08:10 Folate 4.1 ng/mL 03/26/18 08:10 Alcohol, Quantitative < 10 mg/dL (0-10) 03/26/18 08:10 - Hospital Course Hospital Course: Upon Admission: Patient is a 42 y/o female, whose PMHx includes DM II, diabetic neuropathy, liver cirrhosis secondary to alcohol abuse, hidradenitis suppurativa, morbid obesity, medication non-compliance who presents to the ED brought in by EMS comp laining of bilateral leg pain. Patient says she has been having pain in both of her lower extremities for 1 week in duration. In the ED, Vitals: Temp 98.5, HR 98, RR 20, BP 145/97, SaO2 97% (room air). Medical team was consulted for evaluation. Patient mentions that she has had bilateral lower extremity pain for x1 week duration. She has had a similar episode a few months back. Resting makes the pain worse and movement of the legs makes the pain better. She describes the pain as pins and needles like sensation. The pain is located at the lower legs with no radiation. At its worst it is rated a 9/10. Patient says the pain is often worse at night. Denies recent trauma to the leg. Patient has not noticed any purulent discharge from the legs. She also has some epigastric discomfort and had x3 episodes of diarrhea today. No recent antibiotic use. She has no sick contacts and has not traveled outside the country. Denies cp, sob, headache, fever, chills, nausea, vomiting, constipation, lightheadedness, dizziness, changes in vision. Patient was admitted recently to [facility] for cellulitis. Hospital Course: Pt was being worked up for cellulitis vs lymhedema vs diabetic neuropathy. Pt describes the pain and a burning and pins and needles pain only located in the anterior shins b/l and posterior thighs. Duplex US were done on the LE b/l which showed no evidence of DVT. Infectious disease was consulted to evaluate the pt for cellulitis. Per ID: Leg pain likely secondary to worsening chronic lymphadema. No evidence of acute infection. Continue to monitor off of antibiotics. Consider increase in neuropathic pain medication. Pts abx were held to monitor the pt clinically. The pt was monitored overnight and ID saw the pt again and determined that the cause of pain was non-infectious. Pts A1c was ordered to r/o diabetic neuropathy and the pts A1c showed that her glucose levels were well controlled making diabetic neuropathy less likely. The pt has a hx of liver cirrhosis which leads to LE edema per pt. She had an echo done 03/09/18 shows normal LVEF function and EF of 73.9%. Pt states that she is feeling better but there is still a slight burning sensation over her anterior shins and posterior thighs. Pt is educated on methods to manage her swelling, by exercise, diet and medication compliance. She is able to ambulate without assistance and pts VSS and she had no elevated WBC count or fever during her hospitalization. Pt had no erythema, fluctuance or warmth on exam on either leg in any area. Plan for discharge was explained to the pt and the pt expressed understanding and agreement with the medical plan for discharge. Pt was told to follow up with her PMD here and a clinic appointment could be made for her. Pt expressed she is going back to [place] and that she has an appointment for apr 03. She also explained that she has most of her home meds except for Lasix. All of the pts questions and concerns were addressed prior to d/c. For further details please refer to notes in pts medical chart. Discharge Exam - Head Exam Head Exam: ATRAUMATIC, NORMAL INSPECTION, NORMOCEPHALIC - Eye Exam Eye Exam: EOMI, Normal appearance, PERRL - Respiratory Exam Respiratory Exam: Clear to PA & Lateral, NORMAL BREATHING PATTERN, UNREMARKABLE. absent: Accessory Muscle Use, Rales, Rhonchi, Wheezes, Respiratory Distress - Cardiovascular Exam Cardiovascular Exam: RRR, +S1, +S2. absent: Gallop, Rubs - GI/Abdominal Exam GI & Abdominal Exam: Normal Bowel Sounds, Soft, Unremarkable. absent: Distended, Firm, Guarding, Tenderness - Extremities Exam Extremities exam: full ROM, normal capillary refill, normal inspection, pedal edema (1+ b/l pitting edema), pedal pulses present Additional comments: pt has no erythema in anterior shins nor the posterior thighs were pt indicates pain. There is no increased warmth or numbness or tingling in the LE. Pt has 1+ pitting edema in the LE b/l. Pt is able to mvoe all extremities spontaneously without difficulty. - Back Exam Back exam: NORMAL INSPECTION. absent: CVA tenderness (L), CVA tenderness (R) - Neurological Exam Neurological exam: Alert, CN II-XII Intact, Normal Gait (walks with the assistance of a cane), Oriented x3 - Psychiatric Exam Psychiatric exam: Normal Affect, Normal Mood - Skin Skin Exam: Dry, Normal Color, Warm Discharge Plan - Discharge Medications Prescriptions: Docusate [Colace] 100 mg PO DAILY PRN 30 Days #30 cap PRN Reason: Constipation Ferrous Sulfate [Feosol] 324 mg PO TID 30 Days #90 ect Furosemide [Lasix] 20 mg PO BID 5 Days #10 tablet traMADol [Ultram] 25 mg PO TID PRN 2 Days #6 tab PRN Reason: Pain, Severe (8-10) - Follow Up Plan Condition: STABLE Disposition: HOME/ ROUTINE Instructions: Peripheral Neuropathy, Heart Healthy Diet, Swelling, Cellulitis (Skin Infection), Adult ([place]) Additional Instructions: - Please follow up with your PMD Dr. Hodge with the [facility] in [place]. Please see them on the day of your scheduled appointment 04/03/18 - Once you are confirmed to be moving back to [place], you can follow up with the [facility] at [facility] at [address] [place] [address]. You can call to make an appointment. The number for the clinic is: [phone] - We will be prescribing you three new medications: Tramadol 25mg by mouth three times per day as needed for severe pain. Iron pills 324mg by mouth three times a day for your low iron levels. Finally you are prescribed Colace 100mg by mouth once daily as needed for constipation since the Iron pills can cause you to become constipated. - Please continue your other home medications as directed. - Please continue to exercise and eat healthy daily to help with your leg swelling. - Please continue to avoid alcohol consumption. - If you notice any new or worsening symptoms please return to your local Emergency Department. Referrals: Rita Warren MD [Staff Provider] - Laureano Devries MD [Staff Provider] - <Rita Warren - Last Filed: 03/28/18 07:03> Provider - Provider Date of Admission: 03/26/18 00:02 Attending physician: Rita Warren MD Consults: 03/26/18 08:09 Infectious Disease Consult Routine Comment: Consulting Provider: Chucho Guevara Consulting Physician: Chucho Guevara Reason for Consult: Possible cellulitis B/L mejias and back of thigh Hospital Course - Lab Results Lab Results: Micro Results 03/25/18 23:00 Blood Blood Culture - Preliminary NO GROWTH AFTER 48 HOURS 03/25/18 22:15 Blood Blood Culture - Preliminary NO GROWTH AFTER 48 HOURS Most Recent Lab Values WBC 6.2 10^3/uL (4.5-11.0) 03/27/18 08:30 RBC 2.98 10^6/uL (3.5-6.1) L 03/27/18 08:30 Hgb 9.1 g/dL (12.0-16.0) L 03/27/18 08:30 Hct 30.1 % (36.0-48.0) L 03/27/18 08:30 MCV 101.0 fl (80.0-105.0) 03/27/18 08:30 MCH 30.5 pg (25.0-35.0) 03/27/18 08:30 MCHC 30.2 g/dl (31.0-37.0) L 03/27/18 08:30 RDW 15.0 % (11.5-14.5) H 03/27/18 08:30 Plt Count 103 10^3/uL (120.0-450.0) L 03/27/18 08:30 MPV 13.8 fl (7.0-11.0) H 03/26/18 06:20 Neut % (Auto) 76.8 % (50.0-68.0) H 03/27/18 08:30 Lymph % (Auto) 16.7 % (22.0-35.0) L 03/27/18 08:30 [place] % (Auto) 4.5 % (1.0-6.0) 03/27/18 08:30 Eos % (Auto) 1.8 % (1.5-5.0) 03/27/18 08:30 Baso % (Auto) 0.2 % (0.0-3.0) 03/27/18 08:30 Lymph # (Auto) 1.0 (1.2-3.4) L 03/27/18 08:30 [place] # (Auto) 0.3 (0.1-0.6) 03/27/18 08:30 Eos # (Auto) 0.1 (0.0-0.7) 03/27/18 08:30 Baso # (Auto) 0.01 K/mm3 (0.0-2.0) 03/27/18 08:30 Absolute Neuts (auto) 4.80 (1.4-6.5) 03/27/18 08:30 Retic Count 1.96 % (0.5-1.5) H 03/26/18 08:10 PT 15.5 SECONDS (9.4-12.5) H 03/25/18 22:12 INR 1.40 03/25/18 22:12 APTT 27.0 Seconds (26.9-38.3) 03/25/18 22:12 Sodium 138 mmol/L (132-148) 03/27/18 08:30 Potassium 3.6 mmol/L (3.6-5.0) 03/27/18 08:30 Chloride 104 mmol/L (98-107) 03/27/18 08:30 Carbon Dioxide 30 mmol/L (21-33) 03/27/18 08:30 Anion Gap 8 (10-20) L 03/27/18 08:30 BUN 7 mg/dL (7-21) 03/27/18 08:30 Creatinine 0.6 mg/dl (0.7-1.2) L 03/27/18 08:30 Est GFR ( Amer) > 60 03/27/18 08:30 Est GFR (Non-Af Amer) > 60 03/27/18 08:30 POC Glucose (mg/dL) 98 mg/dL (65-110) 03/27/18 15:53 Random Glucose 170 mg/dL (70-110) H 03/27/18 08:30 Hemoglobin A1c 4.6 % (4.2-6.5) 03/26/18 06:20 Calcium 8.6 mg/dL (8.4-10.5) 03/27/18 08:30 Iron 40 ug/dL (45-180) L 03/26/18 08:10 TIBC 284 ug/dL (265-497) 03/26/18 08:10 % Saturation 14 % (20-55) L 03/26/18 08:10 Transferrin 208.84 mg/dL (206-381) 03/26/18 08:10 Ferritin 28.8 ng/mL 03/26/18 08:10 Total Bilirubin 0.8 mg/dL (0.2-1.3) 03/27/18 08:30 AST 50 U/L (14-36) H 03/27/18 08:30 ALT 18 U/L (7-56) 03/27/18 08:30 Alkaline Phosphatase 122 U/L (38-126) 03/27/18 08:30 Ammonia 29 umol/L (9-33) 03/25/18 23:10 Total Protein 9.0 g/dL (5.8-8.3) H 03/27/18 08:30 Albumin 3.4 g/dL (3.0-4.8) 03/27/18 08:30 Globulin 5.7 gm/dL 03/27/18 08:30 Albumin/Globulin Ratio 0.6 (1.1-1.8) L 03/27/18 08:30 Lipase 30 U/L (23-300) 03/25/18 23:10 Vitamin B12 320 pg/mL (239-931) 03/26/18 08:10 Folate 4.1 ng/mL 03/26/18 08:10 Alcohol, Quantitative < 10 mg/dL (0-10) 03/26/18 08:10 Attending/Attestation - Attestation I have personally seen and examined this patient.: Yes I have fully participated in the care of the patient.: Yes I have reviewed all pertinent clinical information, including history, physical exam and plan: Yes Notes (Text): 03/27/18 42 year old female with past medical history of diabetes, obesity and alcohol abuse who presented with bilateral leg pain and swelling. Symptoms likely secondary to neuropathy. She is already on diuretics. She was seen by ID for presumed cellulitis; recommended to monitor off antibiotics. She was noted to have chronic anemia, iron deficient and started on po iron supplements. Patient reports improvement of symptoms. Patient is discharged home to follow up with pmd or [facility] clinic. Recommended outpatient GI follow up for anemia. Counselled on medication and outpatient follow up compliance. Counselled on weight loss, diet, exercise and lifestyle modifications. Rita Warren MD Hospitalist.
[2018-03-28 10:18] LABS: METHYLMALONIC ACID,SERUM 267 nmol/L (87-318)
== END 2018-03-27 17:16 | disposition home or self-care (01) ==
LOC: ED 20:33 → ERH 03-26 00:02 → 5RSO 03-26 03:33
PROVIDERS: ADMIT Internal Medicine; ATTEND Internal Medicine
DX: L03.116 Cellulitis of left lower limb (principal); L03.115 Cellulitis of right lower limb; D50.9 Iron deficiency anemia, unspecified; E11.40 Type 2 diabetes mellitus with diabetic neuropathy, unspecified; Z82.49 Family history of ischemic heart disease and other diseases of the circulatory system; Z83.3 Family history of diabetes mellitus; Z82.3 Family history of stroke; K21.9 Gastro-esophageal reflux disease without esophagitis; K70.30 Alcoholic cirrhosis of liver without ascites; L73.2 Hidradenitis suppurativa; Z90.49 Acquired absence of other specified parts of digestive tract; Z98.84 Bariatric surgery status; Z91.14 Patient's other noncompliance with medication regimen; E66.01 Morbid (severe) obesity due to excess calories; Z68.41 Body mass index [BMI] 40.0-44.9, adult; Z88.8 Allergy status to other drugs, medicaments and biological substances; Z91.013 Allergy to seafood; Z87.892 Personal history of anaphylaxis; F10.10 Alcohol abuse, uncomplicated
CPT/HCPCS: 36415; 71045; 80053; 82140; 82607; 82728; 82746; 82948; 83036; 83690; 83921; 84466; 85025; 85027; 85044; 85610; 85730; 87040; 93005; 93970; 96365; 96366; 96374; 99283; G0378; G0480; J1644; J1940